=== PATIENT | male | born 1935 | race Caucasian/White ===

== ENCOUNTER 2017-08-20 21:21 | Inpatient (IN) | payer MEDICARE, SELFPAY ==
[2017-08-20 21:24] VITALS: BP 108/55; PULSE 70; RESP 20; TEMP 37.1; O2SAT 98; BMI 25.8
[2017-08-20 22:01] LABS: Bedside Glucose 183 mg/dL (70-110)
[2017-08-20 22:05] VITALS: PULSE 70; O2SAT 99
[2017-08-20] MEDS: APIXABAN 5 MG TABLET PO (22:13)
[2017-08-20] MEDS: Atorvastatin Calcium 40 MG Tablet PO (22:13)
[2017-08-20] MEDS: Venlafaxine HCl 75 MG Tablet PO (22:13)
[2017-08-20] MEDS: Gabapentin 100 MG Capsule PO (22:14)
[2017-08-20] MEDS: MELATONIN 3 MG TABLET PO (22:14)
--- NOTE | 2017-08-20 22:16 | NURSING ---
Code status discussed with pt at this time. Wishes to be DNRCC. Wishes to have sign papers.
[2017-08-21 06:56] LABS: Bedside Glucose 151 mg/dL (70-110)
[2017-08-21 07:16] LABS: Absolute Lymphocyte Count 0.75 X10^3/ul (0.83-4.51); Absolute Neutrophil Count 3.3 X10^3/uL (2.0-7.7); Basophil# 0.01 X10^3/uL; Basophil% 0.2 % (0-1); Eosinophil# 0.03 X10^3/uL; Eosinophils% 0.6 % (0-5); Hematocrit 33.1 % (40-54); Hemoglobin 10.1 g/dl (13.0-16.5); Lymphocyte # 0.75 X10^3/ul (4.0); Lymphocyte % 15.2 % (19-41); Mean Corp Hgb Conc 30.5 g/gl (32-36); Mean Corpuscular Volume 95.1 fL (80-94); Mean Platelet Vol. 10.5 fl (6.2-12.0); Monocyte# 0.86 X10^3/uL; Monocyte% 17.4 % (0-10); Neutrophil # 3.26 X10^3/uL (2.7-7.7); Neutrophil % 66.2 % (47-70); Platelet Count 88 K/mm3 (150-450); RBC Distribution Width CV 15.9 % (11.6-14.6); RBC Distribution Width SD 53.5 fl (35.1-43.9); Red Blood Count 3.48 M/mm3 (4.6-6.2); White Blood Count 4.9 K/mm3 (4.4-11.0)
[2017-08-21 07:23] LABS: POSITIVE COUNT NO; POSITIVE DIFFERENTIAL NO; POSITIVE MORPHOLOGY NO
[2017-08-21 07:24] LABS: Anion Gap 7 (5-15); BUN 37 mg/dL (7-18); BUN/Creat Ratio 21.5 RATIO (10-20); Calcium,Total 8.7 mg/dL (8.5-10.1); Chloride 104 mmol/L (98-107); Creatinine, Serum 1.72 mg/dL (0.70-1.30); EST Glomerular Filtration Rate 41 mL/min (>60); Est Glom Filt Rate - Afr Amer 49 mL/min (>60); Estimated Creatinine Clearance 34.19 ml/min; Glucose 139 mg/dL (74-106); Potassium 3.9 mmol/L (3.5-5.1); Sodium Level 140 mmol/L (136-145)
[2017-08-21] MEDS: Gabapentin 100 MG Capsule PO ×3 (08:16→17:46)
[2017-08-21] MEDS: Ferrous Sulfate 325 MG Tablet PO (08:16)
[2017-08-21] MEDS: Docusate Sodium 100 MG Capsule PO ×2 (08:16→17:46)
[2017-08-21] MEDS: Clopidogrel Bisulfate 75 MG Tablet PO (08:16)
[2017-08-21] MEDS: Pantoprazole Sodium 40 MG Tablet PO (08:16)
[2017-08-21] MEDS: APIXABAN 5 MG TABLET PO ×2 (08:16→17:46)
[2017-08-21] MEDS: Venlafaxine HCl 75 MG Tablet PO ×3 (08:16→17:46)
[2017-08-21] MEDS: Menthol/Lanolin/Calamine/Znox 113 GM Tube 1 APPLIC TOPICAL (08:23)
--- NOTE | 2017-08-21 10:04 | NURSING ---
Pt has c/o nasal congestion, requesting mucinex. NO for mucinex 600mg PO BID. Patient aware.
--- NOTE | 2017-08-21 10:08 | NURSING ---
Code status discussed with Patient and , Ayah. Patient wishes to be a DNRCC at this time.
[2017-08-21] MEDS: Tuberculin,Purif.prot.deriv. 50 TU/ML Vial 5 ML ID (11:20)
[2017-08-21 15:39] VITALS: BP 105/53; PULSE 70; RESP 18; TEMP 36.9; O2SAT 96
[2017-08-21] MEDS: guaiFENesin 600 MG Tablet PO (17:46)
[2017-08-21] MEDS: Tamsulosin HCl 0.4 MG Capsule PO (17:46)
--- NOTE | 2017-08-21 19:38 | PCM.HP.STD ---
Problem List (1) Fall Status: Acute (2) Closed head injury Status: Acute (3) Coronary artery disease Status: Chronic (4) Stroke Status: Chronic (5) Atrial fibrillation Status: Chronic (6) Diabetes mellitus Status: Chronic (7) BPH (benign prostatic hyperplasia) Status: Chronic (8) Severe aortic stenosis Status: Chronic (9) Cardiomyopathy Status: Chronic (10) Dysphagia Status: Chronic (11) Carotid artery stenosis Status: Chronic (12) Right hemiparesis Status: Chronic (13) Depression Status: Chronic (14) Hyperlipidemia Status: Chronic (15) Bladder cancer Status: Chronic Qualifiers: History of Present Illness Date of Admission: 08/20/17 Chief Complaint: Here for rehabilitation, strengthening, prior to discharge home with spouse. The patient is a 82 year old Male with below past medical history fell from standing height, hit his head, he is on Plavix, and Eliquis. Patient was admitted to [facility] for observation. Due to his debility, it was recommended he be discharged to short term inpatient rehabilitation. 08/20/2017 Admit to TCU with debility, here for rehabilitation, strengthening, prior to discharge home with spouse. Past Medical History Past Medical History (Chronic Problems): Chronic Problems (Last Updated 03/10/17 @ 13:18 by DORA Anders) Coronary artery disease (Chronic) Stroke (Chronic) Atrial fibrillation (Chronic) Diabetes mellitus (Chronic) BPH (benign prostatic hyperplasia) (Chronic) Dyspnea on exertion (Chronic) Pulmonary hypertension (Chronic) Nonrheumatic mitral valve insufficiency (Chronic) Severe aortic stenosis (Chronic) Cardiomyopathy (Chronic) Dysphagia (Chronic) Carotid artery stenosis (Chronic) Right hemiparesis (Chronic) Depression (Chronic) Hyperlipidemia (Chronic) Type 2 diabetes mellitus (Chronic) Urinary retention due to benign prostatic hyperplasia (Chronic) Bladder cancer (Chronic) Medical History: Medical History (Last Updated 03/10/17 @ 13:18 by DORA Anders) Pulmonary hypertension (Chronic) I27.20 Nonrheumatic mitral valve insufficiency (Chronic) I34.0 Severe aortic stenosis (Chronic) I35.0 Cardiomyopathy (Chronic) I42.9 Dysphagia (Chronic) R13.10 Carotid artery stenosis (Chronic) I65.29 Right hemiparesis (Chronic) G81.91 Heart failure with reduced ejection fraction (Acute) I50.20 Depression (Chronic) F32.9 Hyperlipidemia (Chronic) E78.5 Atrial fibrillation and flutter (Acute) I48.91, I48.92 Type 2 diabetes mellitus (Chronic) E11.9 Acute embolic stroke (Acute) I63.9 Urinary retention due to benign prostatic hyperplasia (Chronic) N40.1, R33.8 Bladder cancer (Chronic) C67.9 Ventricular tachycardia I47.2 Allergies morphine Allergy (Verified 03/17/17 06:51) Rash Home Medications: Ambulatory Orders Medication Instructions Recorded Metformin HCl 500 mg PO BIDCM 10/21/16 Tamsulosin HCl [Flomax] 0.4 mg PO DAILY 10/21/16 Venlafaxine XR [Effexor Xr] 75 mg PO TID 10/21/16 Acetaminophen [Tylenol] 1,000 mg PO Q8H PRN PRN tab 12/12/16 Apixaban [Eliquis] 5 mg PO BID 08/20/17 Surgical History: total knee arthroplasty - Bilateral., - - 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 Psychiatric History: Depression Lives: Spouse/ Significant Other Smoking Status: Never smoker Tobacco Use: Non-smoker Alcohol: None Drugs: None - *Family History Maternal History Items: No pertinent history Review of Systems Constitutional: Reports: Weakness. Denies: Chills, Fever, Weight Change HEENT: Denies: Head Aches, Sinus Congestion, Sinus Drainage Cardiovascular: Denies: Chest Pain, Palpitations Respiratory: Denies: Cough, Shortness of breath at rest, Sputum production Gastrointestinal: Denies: Abdominal Pain, Nausea, Vomiting Genitourinary: Denies: Dysuria Musculoskeletal: Denies: Joint Pain, Joint Tenderness Skin: Denies: Rash, Wounds Neurological: Denies: Numbness, Tingling, Focal weakness Psychiatric: Denies: Anxiety, Depression, Homicidal Ideations, Suicidal Ideations Hematologic/ Lymphatic: Denies: Easy Bruising, Easy Bleeding VTE Information - Inpt Only VTE Present on Admission: No VTE Mechan Device Prophylaxis: Knee High KEIRA Hose VTE Pharm Prophylaxis ordered?: No Reason prophylaxis not ordered:: Treatment Not Indicated Patient Problems: Active and Suspected Problems (Last Updated 03/10/17 @ 13:18 by Kunal Newman NP-C) Fall (Acute) Closed head injury (Acute) - Physical Exam General: Alert, Oriented x3, Cooperative HEENT: Atraumatic, PERRLA, EOMI, Normocephalic Neck: Supple, No JVD, Negative Carotid Bruits Lungs: Clear to auscultation, Normal air movement Cardiovascular: Regular rate, No murmurs Abdomen: Bowel Sounds Present, Soft, Non Tender Extremities: Capillary Refill Less than 3 Seconds, Edema - Trace. Skin: No rashes, No breakdown Musculoskeletal: No Tenderness to Palpation of Joints or Extremities Neurological: Cranial nerves II-XII grossly intact Psych/Mental Status: Normal Affect, Appropriate Vital Signs Temp Pulse Resp BP Pulse Ox 98.4 F 70 18 105/53 L 96 08/21/17 15:39 08/21/17 15:39 08/21/17 15:39 08/21/17 15:39 08/21/17 15:39 Oxygen Delivery Method Room Air Weight: 81.647 kg Body Mass Index (BMI) 25.8 Intake and Output for Last 24 Hours 08/19/17 08/20/17 08/21/17 23:59 23:59 23:59 Intake Total 120 / 120 444 / 444 Balance 120 / 120 444 / 444 Laboratory Tests Past 24 Hrs 08/21/17 08/21/17 06:28 06:28 WBC 4.9 RBC 3.48 L Hgb 10.1 L Hct 33.1 L MCV 95.1 H MCH 29.0 MCHC 30.5 L RDW 15.9 H RDW Differential 53.5 H Plt Count 88 L MPV 10.5 Immature Gran % (Auto) 0.400 Neut % (Auto) 66.2 Lymph % (Auto) 15.2 L [place] % (Auto) 17.4 H Eos % (Auto) 0.6 Baso % (Auto) 0.2 Absolute Neuts (auto) 3.3 Absolute Lymphs (auto) 0.75 L Total Counted Not Reportable Sodium 140 Potassium 3.9 Chloride 104 Carbon Dioxide 29.0 Anion Gap 7 BUN 37 H Creatinine 1.72 H Estim Creat Clear Calc 34.19 Est GFR (MDRD) Af Amer 49 L Est GFR (MDRD) Non-Af 41 L BUN/Creatinine Ratio 21.5 H Glucose 139 H Calcium 8.7 POC Glucose 08/21/17 08/20/17 06:29 21:58 POC Glucose 151 H 183 H Assessment/Plan All Active Problems (Last Updated 03/10/17 @ 13:18 by Kunal Newman NP-C) Fall (Acute) Closed head injury (Acute) Heart failure with reduced ejection fraction (Acute) Atrial fibrillation and flutter (Acute) Acute embolic stroke (Acute) 82 year old male with below past medical history hospitalized for fall, closed head injury, admitted to TCU with debility, here for rehabilitation, strengthening, prior to discharge home with spouse. Debility - PT/OT. Pain - Tylenol 1000MG Q8H PRN mild pain. Bowel - Miralax 17GM daily, Senna/colace 1 tablet twice daily, Dulcolax 10MG PO daily PRN. Pneumonia vaccination - Administer Prevnar 13 and/or Pneumovax 23 as necessar.y DVT prophylaxis - Not necessary, already on Eliquis. Atrial Fibrillation - Eliquis 5MG twice daily. Hyperlipidemia - Atorvastatin 40MG QHS. Coronary Artery Disease - Plavix 75MG twice daily. Skin irritation - Eucerin twice daily bilateral feet, Calmoseptine twice daily bilateral buttocks. Vitamin D deficiency - D2 50,000 units every 7 days. Iron deficiency anemia - Ferrex 150MG daily. Neuropathic pain - Gabapentin 100MG TID. Congestion - Mucinex 600MG twice daily. Insomnia - Melatonin 3MG QHS. Diabetes Mellitus II - Metformin 500MG twice daily. GERD - Pantoprazole 40MG daily. BPH - Tamsulosin 0.4MG daily. Depression - Venlafaxine 75MG TID.
[2017-08-21] MEDS: Acetaminophen 500 MG Tablet 1000 MG PO (19:40)
[2017-08-21] MEDS: Atorvastatin Calcium 40 MG Tablet PO (19:41)
[2017-08-21] MEDS: MELATONIN 3 MG TABLET PO (19:42)
--- NOTE | 2017-08-21 19:55 | HP.PCM_ITS ---
Problem List (1) Fall Status: Acute (2) Closed head injury Status: Acute (3) Coronary artery disease Status: Chronic (4) Stroke Status: Chronic (5) Atrial fibrillation Status: Chronic (6) Diabetes mellitus Status: Chronic (7) BPH (benign prostatic hyperplasia) Status: Chronic (8) Severe aortic stenosis Status: Chronic (9) Cardiomyopathy Status: Chronic (10) Dysphagia Status: Chronic (11) Carotid artery stenosis Status: Chronic (12) Right hemiparesis Status: Chronic (13) Depression Status: Chronic (14) Hyperlipidemia Status: Chronic (15) Bladder cancer Status: Chronic Qualifiers: History of Present Illness Date of Admission: 08/20/17 Chief Complaint: Here for rehabilitation, strengthening, prior to discharge home with spouse. The patient is a 82 year old Male with below past medical history fell from standing height, hit his head, he is on Plavix, and Eliquis. Patient was admitted to [facility] for observation. Due to his debility, it was recommended he be discharged to short term inpatient rehabilitation. 08/20/2017 Admit to TCU with debility, here for rehabilitation, strengthening, prior to discharge home with spouse. Past Medical History Past Medical History (Chronic Problems): Chronic Problems (Last Updated 03/10/17 @ 13:18 by DORA Anders) Coronary artery disease (Chronic) Stroke (Chronic) Atrial fibrillation (Chronic) Diabetes mellitus (Chronic) BPH (benign prostatic hyperplasia) (Chronic) Dyspnea on exertion (Chronic) Pulmonary hypertension (Chronic) Nonrheumatic mitral valve insufficiency (Chronic) Severe aortic stenosis (Chronic) Cardiomyopathy (Chronic) Dysphagia (Chronic) Carotid artery stenosis (Chronic) Right hemiparesis (Chronic) Depression (Chronic) Hyperlipidemia (Chronic) Type 2 diabetes mellitus (Chronic) Urinary retention due to benign prostatic hyperplasia (Chronic) Bladder cancer (Chronic) Medical History: Medical History (Last Updated 03/10/17 @ 13:18 by DORA Anders) Pulmonary hypertension (Chronic) I27.20 Nonrheumatic mitral valve insufficiency (Chronic) I34.0 Severe aortic stenosis (Chronic) I35.0 Cardiomyopathy (Chronic) I42.9 Dysphagia (Chronic) R13.10 Carotid artery stenosis (Chronic) I65.29 Right hemiparesis (Chronic) G81.91 Heart failure with reduced ejection fraction (Acute) I50.20 Depression (Chronic) F32.9 Hyperlipidemia (Chronic) E78.5 Atrial fibrillation and flutter (Acute) I48.91, I48.92 Type 2 diabetes mellitus (Chronic) E11.9 Acute embolic stroke (Acute) I63.9 Urinary retention due to benign prostatic hyperplasia (Chronic) N40.1, R33.8 Bladder cancer (Chronic) C67.9 Ventricular tachycardia I47.2 Allergies morphine Allergy (Verified 03/17/17 06:51) Rash Home Medications: Ambulatory Orders Medication Instructions Recorded Metformin HCl 500 mg PO BIDCM 10/21/16 Tamsulosin HCl [Flomax] 0.4 mg PO DAILY 10/21/16 Venlafaxine XR [Effexor Xr] 75 mg PO TID 10/21/16 Acetaminophen [Tylenol] 1,000 mg PO Q8H PRN PRN tab 12/12/16 Apixaban [Eliquis] 5 mg PO BID 08/20/17 Surgical History: total knee arthroplasty - Bilateral., - - 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 Psychiatric History: Depression Lives: Spouse/ Significant Other Smoking Status: Never smoker Tobacco Use: Non-smoker Alcohol: None Drugs: None - *Family History Maternal History Items: No pertinent history Review of Systems Constitutional: Reports: Weakness. Denies: Chills, Fever, Weight Change HEENT: Denies: Head Aches, Sinus Congestion, Sinus Drainage Cardiovascular: Denies: Chest Pain, Palpitations Respiratory: Denies: Cough, Shortness of breath at rest, Sputum production Gastrointestinal: Denies: Abdominal Pain, Nausea, Vomiting Genitourinary: Denies: Dysuria Musculoskeletal: Denies: Joint Pain, Joint Tenderness Skin: Denies: Rash, Wounds Neurological: Denies: Numbness, Tingling, Focal weakness Psychiatric: Denies: Anxiety, Depression, Homicidal Ideations, Suicidal Ideations Hematologic/ Lymphatic: Denies: Easy Bruising, Easy Bleeding VTE Information - Inpt Only VTE Present on Admission: No VTE Mechan Device Prophylaxis: Knee High KEIRA Hose VTE Pharm Prophylaxis ordered?: No Reason prophylaxis not ordered:: Treatment Not Indicated Patient Problems: Active and Suspected Problems (Last Updated 03/10/17 @ 13:18 by Kunal Newman NP- C) Fall (Acute) Closed head injury (Acute) - Physical Exam General: Alert, Oriented x3, Cooperative HEENT: Atraumatic, PERRLA, EOMI, Normocephalic Neck: Supple, No JVD, Negative Carotid Bruits Lungs: Clear to auscultation, Normal air movement Cardiovascular: Regular rate, No murmurs Abdomen: Bowel Sounds Present, Soft, Non Tender Extremities: Capillary Refill Less than 3 Seconds, Edema - Trace. Skin: No rashes, No breakdown Musculoskeletal: No Tenderness to Palpation of Joints or Extremities Neurological: Cranial nerves II-XII grossly intact Psych/Mental Status: Normal Affect, Appropriate Vital Signs Temp Pulse Resp BP Pulse Ox 98.4 F 70 18 105/53 L 96 08/21/17 15:39 08/21/17 15:39 08/21/17 15:39 08/21/17 15:39 08/21/17 15:39 Oxygen Delivery Method Room Air Weight: 81.647 kg Body Mass Index (BMI) 25.8 Intake and Output for Last 24 Hours 08/19/17 08/20/17 08/21/17 23:59 23:59 23:59 Intake Total 120 / 120 444 / 444 Balance 120 / 120 444 / 444 Laboratory Tests Past 24 Hrs 08/21/17 08/21/17 06:28 06:28 WBC 4.9 RBC 3.48 L Hgb 10.1 L Hct 33.1 L MCV 95.1 H MCH 29.0 MCHC 30.5 L RDW 15.9 H RDW Differential 53.5 H Plt Count 88 L MPV 10.5 Immature Gran % (Auto) 0.400 Neut % (Auto) 66.2 Lymph % (Auto) 15.2 L [place] % (Auto) 17.4 H Eos % (Auto) 0.6 Baso % (Auto) 0.2 Absolute Neuts (auto) 3.3 Absolute Lymphs (auto) 0.75 L Total Counted Not Reportable Sodium 140 Potassium 3.9 Chloride 104 Carbon Dioxide 29.0 Anion Gap 7 BUN 37 H Creatinine 1.72 H Estim Creat Clear Calc 34.19 Est GFR (MDRD) Af Amer 49 L Est GFR (MDRD) Non-Af 41 L BUN/Creatinine Ratio 21.5 H Glucose 139 H Calcium 8.7 POC Glucose 08/21/17 08/20/17 06:29 21:58 POC Glucose 151 H 183 H Assessment/Plan All Active Problems (Last Updated 03/10/17 @ 13:18 by Kunal H Roof, WELDER APPRENTICE G[employer]-C) Fall (Acute) Closed head injury (Acute) Heart failure with reduced ejection fraction (Acute) Atrial fibrillation and flutter (Acute) Acute embolic stroke (Acute) 82 year old male with below past medical history hospitalized for fall, closed head injury, admitted to TCU with debility, here for rehabilitation, strengthening, prior to discharge home with spouse. * Debility - PT/OT. * Pain - Tylenol 1000MG Q8H PRN mild pain. * Bowel - Miralax 17GM daily, Senna/colace 1 tablet twice daily, Dulcolax 10MG PO daily PRN. * Pneumonia vaccination - Administer Prevnar 13 and/or Pneumovax 23 as necessar.y * DVT prophylaxis - Not necessary, already on Eliquis. * Atrial Fibrillation - Eliquis 5MG twice daily. * Hyperlipidemia - Atorvastatin 40MG QHS. * Coronary Artery Disease - Plavix 75MG twice daily. * Skin irritation - Eucerin twice daily bilateral feet, Calmoseptine twice daily bilateral buttocks. * Vitamin D deficiency - D2 50,000 units every 7 days. * Iron deficiency anemia - Ferrex 150MG daily. * Neuropathic pain - Gabapentin 100MG TID. * Congestion - Mucinex 600MG twice daily. * Insomnia - Melatonin 3MG QHS. * Diabetes Mellitus II - Metformin 500MG twice daily. * GERD - Pantoprazole 40MG daily. * BPH - Tamsulosin 0.4MG daily. * Depression - Venlafaxine 75MG TID.
[2017-08-21 20:56] VITALS: PULSE 68; RESP 18; O2SAT 95
[2017-08-22] MEDS: guaiFENesin 600 MG Tablet PO ×2 (05:33→17:53)
[2017-08-22] MEDS: Polyethylene Glycol 3350 17 GM PACKET PO (05:33)
[2017-08-22 06:50] LABS: Bedside Glucose 97 mg/dL (70-110)
[2017-08-22] MEDS: Gabapentin 100 MG Capsule PO ×3 (07:45→17:52)
[2017-08-22] MEDS: Venlafaxine HCl 75 MG Tablet PO ×3 (07:45→17:52)
[2017-08-22] MEDS: APIXABAN 5 MG TABLET PO ×2 (07:45→17:52)
[2017-08-22] MEDS: Iron Polysaccharide Complex 150 MG CAPSULE PO (07:45)
[2017-08-22] MEDS: Clopidogrel Bisulfate 75 MG Tablet PO (07:45)
[2017-08-22] MEDS: Pantoprazole Sodium 40 MG Tablet PO (07:45)
[2017-08-22] MEDS: Menthol/Lanolin/Calamine/Znox 113 GM Tube 1 APPLIC TOPICAL ×2 (07:49→21:19)
[2017-08-22 15:08] VITALS: BP 119/69; PULSE 73; RESP 16; TEMP 36.5; O2SAT 99
[2017-08-22] MEDS: Tamsulosin HCl 0.4 MG Capsule PO (17:53)
[2017-08-22] MEDS: Senna/Docusate Sodium 1 Tablet PO (17:54)
[2017-08-22 19:37] VITALS: PULSE 88; RESP 18; O2SAT 95
[2017-08-22] MEDS: Atorvastatin Calcium 40 MG Tablet PO (21:19)
[2017-08-22] MEDS: MELATONIN 3 MG TABLET PO (21:20)
[2017-08-23] MEDS: guaiFENesin 600 MG Tablet PO ×2 (05:36→17:21)
[2017-08-23 06:31] LABS: Bedside Glucose 97 mg/dL (70-110)
[2017-08-23] MEDS: Venlafaxine HCl 75 MG Tablet PO ×3 (07:50→17:21)
[2017-08-23] MEDS: Menthol/Lanolin/Calamine/Znox 113 GM Tube 1 APPLIC TOPICAL ×2 (07:50→19:53)
[2017-08-23] MEDS: Gabapentin 100 MG Capsule PO ×3 (07:50→17:21)
[2017-08-23] MEDS: APIXABAN 5 MG TABLET PO ×2 (07:51→17:21)
[2017-08-23] MEDS: Iron Polysaccharide Complex 150 MG CAPSULE PO (07:53)
[2017-08-23] MEDS: Pantoprazole Sodium 40 MG Tablet PO (07:54)
[2017-08-23] MEDS: Clopidogrel Bisulfate 75 MG Tablet PO (07:54)
--- NOTE | 2017-08-23 11:04 | NURSING ---
Addendum entered by Tarah Cortes 08/23/17 18:04: DR PEREZ ORDERED ULTRAM PRN SINCE PT REFUSING TYLENOL. Original Note: DR PEREZ AWARE OF PT CONTINUES TO C/O OF CONSTANT RT KNEE PAIN, TIGHT EDEMA & STIFFNESS, REFUSING TYLENOL. DR PEREZ AWARE, NEW ORDER FOR CT RT KNEE. PT UPDATED, AWAITING PREAUTH FOR INSURANCE APPROVAL.
--- NOTE | 2017-08-23 11:05 | NURSING ---
pt c/o right knee pain at this time. PRN tylenol offered and pt declined. Will re-approach and continue to monitor.
[2017-08-23 15:18] VITALS: BP 103/46; PULSE 70; RESP 16; TEMP 36.7; O2SAT 93
[2017-08-23] MEDS: Senna/Docusate Sodium 1 Tablet PO (17:21)
[2017-08-23] MEDS: Tamsulosin HCl 0.4 MG Capsule PO (17:21)
[2017-08-23] MEDS: Atorvastatin Calcium 40 MG Tablet PO (19:54)
[2017-08-23] MEDS: MELATONIN 3 MG TABLET PO (19:54)
[2017-08-23 20:00] VITALS: PULSE 76; RESP 16; O2SAT 96
[2017-08-24 06:51] LABS: Bedside Glucose 130 mg/dL (70-110)
[2017-08-24] MEDS: Venlafaxine HCl 75 MG Tablet PO ×3 (08:08→17:30)
[2017-08-24] MEDS: Bisacodyl 5 MG Tablet 10 MG PO (08:08)
[2017-08-24] MEDS: Gabapentin 100 MG Capsule PO ×3 (08:08→17:30)
[2017-08-24] MEDS: APIXABAN 5 MG TABLET PO ×2 (08:09→17:30)
[2017-08-24] MEDS: Iron Polysaccharide Complex 150 MG CAPSULE PO (08:09)
[2017-08-24] MEDS: Polyethylene Glycol 3350 17 GM PACKET PO (08:10)
[2017-08-24] MEDS: Clopidogrel Bisulfate 75 MG Tablet PO (08:11)
[2017-08-24] MEDS: Pantoprazole Sodium 40 MG Tablet PO (08:11)
[2017-08-24] MEDS: guaiFENesin 600 MG Tablet PO ×2 (08:11→17:30)
[2017-08-24] MEDS: Senna/Docusate Sodium 1 Tablet PO ×2 (08:12→17:30)
[2017-08-24] MEDS: Menthol/Lanolin/Calamine/Znox 113 GM Tube 1 APPLIC TOPICAL ×2 (08:18→19:46)
[2017-08-24 10:42] VITALS: PULSE 70; RESP 18; O2SAT 98
--- NOTE | 2017-08-24 10:59 | NURSING ---
PT STILL COMPLAINING ABOUT RIGHT KNEE PAIN. ICE PACK APPLIED. BOTH HANDS SWOLLEN X1. LOWER RIGHT ANKLE AND FOOT SWOLLEN X2 NON PITTING. REPORTED TO YAYA GUTIERREZ
[2017-08-24] MEDS: traMADol 50 MG Tablet PO (11:41)
[2017-08-24] MEDS: Acetaminophen 500 MG Tablet 1000 MG PO (11:43)
[2017-08-24 15:26] VITALS: BP 118/58; PULSE 70; RESP 18; TEMP 36.1; O2SAT 98
[2017-08-24] MEDS: Tamsulosin HCl 0.4 MG Capsule PO (17:30)
--- NOTE | 2017-08-24 18:04 | NURSING ---
INCREASED CRYSTALIZER OPERATOR EDEMA TO HANDS AND RT FOOT TO KNEE, DR PEREZ NOTIFIED, NEW ORDER LASIX X1 NOW AND DAILY.
[2017-08-24] MEDS: Sodium Chloride 0.65% 1 SPRAY SPRAY.BTL NASAL (18:42)
[2017-08-24] MEDS: Furosemide 20 MG Tablet PO (18:42)
[2017-08-24] MEDS: Atorvastatin Calcium 40 MG Tablet PO (19:46)
[2017-08-24] MEDS: MELATONIN 3 MG TABLET PO (19:46)
[2017-08-25 06:50] LABS: Bedside Glucose 97 mg/dL (70-110)
--- NOTE | 2017-08-25 07:18 | NURSING ---
PATIENT WAS ORDERED AN SSE. THIS NURSE ATTEMPTED TO GIVE ENEMA. WHEN THIS NURSE EXPLAINED THAT THE DR ORDERED AN ENEMA FOR HIM THE PATIENT SAID THE HECK HE DID! THIS NURSE EXPLAINED IT HAD BEEN SEVERAL DAYS SINCE HIS LAST BM. PATIENT SAID I DON'T CARE IF IT'S BEEN SEVERAL WEEKS, I'M NOT TAKING AN ENEMA! IT WAS NOTED THAT PATIENT TOOK DULCOLAX TABS YESTERDAY AM. AND LAST BM NOTED WAS 08/22/17. WILL CONT TO MONITOR. FELISA DANG WAS IN ROOM WITH THIS NURSE ALSO. SAME REPORTED TO CARINA, RN AND ERICA SPINDLE [facility]VER NURSES AND DAY NURSE YAYA SAWYER.
[2017-08-25] MEDS: Pantoprazole Sodium 40 MG Tablet PO (08:10)
[2017-08-25] MEDS: guaiFENesin 600 MG Tablet PO ×2 (08:10→18:03)
[2017-08-25] MEDS: Clopidogrel Bisulfate 75 MG Tablet PO (08:10)
[2017-08-25] MEDS: Iron Polysaccharide Complex 150 MG CAPSULE PO (08:11)
[2017-08-25] MEDS: Menthol/Lanolin/Calamine/Znox 113 GM Tube 1 APPLIC TOPICAL ×2 (08:11→20:19)
[2017-08-25] MEDS: Gabapentin 100 MG Capsule PO ×3 (08:11→18:04)
[2017-08-25] MEDS: APIXABAN 5 MG TABLET PO ×2 (08:11→18:04)
[2017-08-25] MEDS: Venlafaxine HCl 75 MG Tablet PO ×3 (08:11→18:03)
[2017-08-25] MEDS: Polyethylene Glycol 3350 17 GM PACKET PO (08:12)
--- NOTE | 2017-08-25 09:02 | NURSING ---
Dr. Benson aware of pt refusing SSE this morning, N.O. for 1L of nulytely, pt updated.
--- NOTE | 2017-08-25 09:06 | CASEMGMT ---
Plan of care meeting held. Resident present as well as resident spouse. No discharge date set at this time. Resident plans to continue with further care and treatment on the Transitional Care Unit at this time. Resident plans to discharge home with spouse at time of discharge. Resident with an insurance update due on 08/27/17, resident aware that continued stay approval is not guaranteed. Support given. Will continue to follow. Frannie BETHEA, PRODUCT STRATEGY DIRECTOR
[2017-08-25] MEDS: Electrolyte Solution/Peg's 4000 ML 1000 ML PO (11:10)
[2017-08-25] MEDS: Senna/Docusate Sodium 1 Tablet PO ×2 (11:11→18:03)
--- NOTE | 2017-08-25 11:58 | PCM.PN.RX ---
<JasonliannegalileoKyle D - Last Filed: 08/25/17 11:58> Progress Note - Pharmacy Subjective: TCU Admission Objective: Allergies morphine Allergy (Verified 03/17/17 06:51) Rash Current Medications Generic Name Dose Route Start Last Admin Trade Name Freq PRN Reason Stop Dose Admin Acetaminophen 1,000 mg 08/20/17 21:30 08/24/17 11:43 Tylenol PO 1,000 mg Q8H PRN PRN Administration MILD PAIN (1-3/10) Apixaban 5 mg 08/20/17 22:00 08/25/17 08:11 Eliquis PO 5 mg BIDCM [facility] Administration Atorvastatin Calcium 40 mg 08/20/17 22:00 08/24/17 19:46 Lipitor PO 40 mg QHS [facility] Administration Bisacodyl 10 mg 08/21/17 20:07 08/24/17 08:08 Dulcolax PO 10 mg DAILY PRN Administration Constipation Calamine/Phenol 1 applic 08/21/17 08:00 08/25/17 08:11 Calmoseptine Ointment TOPICAL 1 applicatio 0800,2200 [facility] Administration Protocol Clopidogrel Bisulfate 75 mg 08/21/17 08:00 08/25/17 08:10 Plavix PO 75 mg DAILY@0800 [facility] Administration Emollient Ointment 1 applic 08/21/17 08:00 08/25/17 08:11 Eucerin Intensive Repair TOPICAL 1 applicatio 0800,2200 [facility] Administration Protocol Ergocalciferol 50,000 unit 08/21/17 08:00 08/21/17 08:15 Vitamin D PO 50,000 unit Q7D [facility] Administration Furosemide 20 mg 08/25/17 08:00 Lasix PO DAILY@0800 [facility] Gabapentin 100 mg 08/20/17 22:00 08/25/17 08:11 Neurontin PO 100 mg TIDCM [facility] Administration Guaifenesin 600 mg 08/24/17 08:00 08/25/17 08:10 Mucinex PO 600 mg BID@0800,1800 [facility] Administration Melatonin 3 mg 08/20/17 22:00 08/24/17 19:46 Melatonin PO 3 mg QHS [facility] Administration Metformin HCl 500 mg 08/21/17 08:00 08/25/17 08:10 Glucophage PO 500 mg BIDCM [facility] Administration Nutritional Formula (Lactose Free) 120 ml 08/25/17 12:00 08/25/17 11:46 Ensure Enlive PO Not Given 4X/DAY [facility] Pantoprazole Sodium 40 mg 08/21/17 08:00 08/25/17 08:10 Protonix PO 40 mg DAILY@0800 [facility] Administration Polyethylene Glycol 17 gm 08/24/17 08:00 08/25/17 08:12 Miralax PO 17 gm DAILY@0800 [facility] Administration Polysaccharide Iron Complex 150 mg 08/22/17 08:00 08/25/17 08:11 Ferrex 150 PO 150 mg DAILYCM [facility] Administration Senna/Docusate Sodium 1 tablet 08/24/17 08:00 08/25/17 11:11 Senokot-S, [place]-Colace PO 1 tablet BID@0800,1800 [facility] Administration Sodium Chloride 1 spray 08/24/17 17:48 08/24/17 18:42 [place] Nasal [facility] NASAL 1 spray BID PRN PRN Administration NASAL DRYNESS Tamsulosin HCl 0.4 mg 08/21/17 18:45 08/24/17 17:30 Flomax PO 0.4 mg DAILY@1845 [facility] Administration Tramadol HCl 50 mg 08/23/17 18:03 08/24/17 11:41 Ultram PO 50 mg Q6H PRN PRN Administration MODERATE PAIN (4-5/10) Tuberculin PPD 5 tu 08/28/17 10:00 Tubersol, Aplisol, Ppd ID 08/28/17 10:01 X1 ONE Venlafaxine HCl 75 mg 08/20/17 22:00 08/25/17 08:11 Effexor PO 75 mg TIDCM [facility] Administration Problem List (Last Updated 03/10/17 @ 13:18 by MERARY AndersC) Fall (Acute) Closed head injury (Acute) Coronary artery disease (Chronic) Stroke (Chronic) Atrial fibrillation (Chronic) Diabetes mellitus (Chronic) BPH (benign prostatic hyperplasia) (Chronic) Vital Signs Temp Pulse Resp BP Pulse Ox 97.0 F L 70 18 118/58 L 98 08/24/17 15:26 08/24/17 15:26 08/24/17 15:26 08/24/17 15:26 08/24/17 15:26 Oxygen Delivery Method Room Air Weight: 81.647 kg Body Mass Index (BMI) 25.8 Sodium 140 mmol/L (136-145) 08/21/17 06:28 Potassium 3.9 mmol/L (3.5-5.1) 08/21/17 06:28 Chloride 104 mmol/L (98-107) 08/21/17 06:28 Carbon Dioxide 29.0 mmol/L (21.0-32.0) 08/21/17 06:28 Anion Gap 7 (5-15) 08/21/17 06:28 BUN 37 mg/dL (7-18) H 08/21/17 06:28 Creatinine 1.72 mg/dL (0.70-1.30) H 08/21/17 06:28 Est GFR (MDRD) Af Amer 49 mL/min (>60) L 08/21/17 06:28 Est GFR (MDRD) Non-Af 41 mL/min (>60) L 08/21/17 06:28 BUN/Creatinine Ratio 21.5 RATIO (10-20) H 08/21/17 06:28 Glucose 139 mg/dL (74-106) H 08/21/17 06:28 Assessment/Plan: 1) Pain APAP for mild pain, tramadol for moderate pain, gabapentin scheduled. Continue to monitor prn medication use, daily pain scores. 2) AFib/CAD Apixaban, atorvastatin, clopidogrel. Continue to monitor s/s bleeding, lipids, s/s chest pain. 3) DM2 Metformin twice daily. Continue to monitor BGT, renal function. 4) GI Pantoprazole daily. Continue to monitor s/s GI distress. 5) Derm Calmoseptine, emollient. Continue to monitor clinically. 6) BPH Tamsulosin. Continue to monitor for symptoms. 7) Nutrition Ergocalciferol, Ensure, Fe. Continue to monitor clinically. 8) Insomnia Melatonin at HS. Continue to monitor for insomnia. Psychotropic Medications: 9) Depression Venlafaxine 3x daily. Continue to monitor s/s depression. Unnecessary Medications: None Bowel Regimen: 10) Senna/s, PEG, prn bisacodyl. Continue to monitor prn medication use, for constipation/diarrhea. Date of Note:: 08/25/17 - Provider Comments Provider responsibility: Provider responsible to enter orders to implement recommendations <Eliecer Benson Chi - Last Filed: 08/25/17 16:08> Progress Note - Pharmacy Subjective: [] Objective: Allergies morphine Allergy (Verified 03/17/17 06:51) Rash Current Medications Generic Name Dose Route Start Last Admin Trade Name Freq PRN Reason Stop Dose Admin Acetaminophen 1,000 mg 08/20/17 21:30 08/24/17 11:43 Tylenol PO 1,000 mg Q8H PRN PRN Administration MILD PAIN (1-3/10) Apixaban 5 mg 08/20/17 22:00 08/25/17 08:11 Eliquis PO 5 mg BIDCM [facility] Administration Atorvastatin Calcium 40 mg 08/20/17 22:00 08/24/17 19:46 Lipitor PO 40 mg QHS [facility] Administration Bisacodyl 10 mg 08/21/17 20:07 08/24/17 08:08 Dulcolax PO 10 mg DAILY PRN Administration Constipation Calamine/Phenol 1 applic 08/21/17 08:00 08/25/17 08:11 Calmoseptine Ointment TOPICAL 1 applicatio 0800,2200 [facility] Administration Protocol Clopidogrel Bisulfate 75 mg 08/21/17 08:00 08/25/17 08:10 Plavix PO 75 mg DAILY@0800 [facility] Administration Emollient Ointment 1 applic 08/21/17 08:00 08/25/17 08:11 Eucerin Intensive Repair TOPICAL 1 applicatio 0800,2200 [facility] Administration Protocol Ergocalciferol 50,000 unit 08/21/17 08:00 08/21/17 08:15 Vitamin D PO 50,000 unit Q7D [facility] Administration Furosemide 20 mg 08/25/17 08:00 08/25/17 13:24 Lasix PO 20 mg DAILY@0800 [facility] Administration Gabapentin 100 mg 08/20/17 22:00 08/25/17 13:24 Neurontin PO 100 mg TIDCM [facility] Administration Guaifenesin 600 mg 08/24/17 08:00 08/25/17 08:10 Mucinex PO 600 mg BID@0800,1800 [facility] Administration Melatonin 3 mg 08/20/17 22:00 08/24/17 19:46 Melatonin PO 3 mg QHS [facility] Administration Metformin HCl 500 mg 08/21/17 08:00 08/25/17 08:10 Glucophage PO 500 mg BIDCM [facility] Administration Nutritional Formula (Lactose Free) 120 ml 08/25/17 12:00 08/25/17 11:46 Ensure Enlive PO Not Given 4X/DAY [facility] Pantoprazole Sodium 40 mg 08/21/17 08:00 08/25/17 08:10 Protonix PO 40 mg DAILY@0800 [facility] Administration Polyethylene Glycol 17 gm 08/24/17 08:00 08/25/17 08:12 Miralax PO 17 gm DAILY@0800 [facility] Administration Polysaccharide Iron Complex 150 mg 08/22/17 08:00 08/25/17 08:11 Ferrex 150 PO 150 mg DAILYCM [facility] Administration Senna/Docusate Sodium 1 tablet 08/24/17 08:00 08/25/17 11:11 Senokot-S, [place] PO 1 tablet BID@0800,1800 [facility] Administration Sodium Chloride 1 spray 08/24/17 17:48 08/24/17 18:42 [place] Nasal [facility] NASAL 1 spray BID PRN PRN Administration NASAL DRYNESS Tamsulosin HCl 0.4 mg 08/21/17 18:45 08/24/17 17:30 Flomax PO 0.4 mg DAILY@1845 [facility] Administration Tramadol HCl 50 mg 08/23/17 18:03 08/24/17 11:41 Ultram PO 50 mg Q6H PRN PRN Administration MODERATE PAIN (4-5/10) Tuberculin PPD 5 tu 08/28/17 10:00 Tubersol, Aplisol, Ppd ID 08/28/17 10:01 X1 ONE Venlafaxine HCl 75 mg 08/20/17 22:00 08/25/17 13:24 Effexor PO 75 mg TIDCM [facility] Administration Problem List (Last Updated 03/10/17 @ 13:18 by Kunal Newman NP-C) Fall (Acute) Closed head injury (Acute) Coronary artery disease (Chronic) Stroke (Chronic) Atrial fibrillation (Chronic) Diabetes mellitus (Chronic) BPH (benign prostatic hyperplasia) (Chronic) Vital Signs Temp Pulse Resp BP Pulse Ox 98.5 F 70 26 H 103/34 L 100 08/25/17 15:07 08/25/17 15:07 08/25/17 15:07 08/25/17 15:07 08/25/17 15:07 Oxygen Delivery Method Room Air Weight: 83.178 kg Body Mass Index (BMI) 25.8 Sodium 140 mmol/L (136-145) 08/21/17 06:28 Potassium 3.9 mmol/L (3.5-5.1) 08/21/17 06:28 Chloride 104 mmol/L (98-107) 08/21/17 06:28 Carbon Dioxide 29.0 mmol/L (21.0-32.0) 08/21/17 06:28 Anion Gap 7 (5-15) 08/21/17 06:28 BUN 37 mg/dL (7-18) H 08/21/17 06:28 Creatinine 1.72 mg/dL (0.70-1.30) H 08/21/17 06:28 Est GFR (MDRD) Af Amer 49 mL/min (>60) L 08/21/17 06:28 Est GFR (MDRD) Non-Af 41 mL/min (>60) L 08/21/17 06:28 BUN/Creatinine Ratio 21.5 RATIO (10-20) H 08/21/17 06:28 Glucose 139 mg/dL (74-106) H 08/21/17 06:28 Assessment/Plan: Psychotropic Medications: Unnecessary Medications: Bowel Regimen: - Provider Comments Provider responsibility: Provider responsible to enter orders to implement recommendations Provider Comments to Recommendations by Pharmacy: Agree
--- NOTE | 2017-08-25 12:08 | PHA.CONS_ITS ---
<JasonliannegalileoKyle D - Last Filed: 08/25/17 11:58> Progress Note - Pharmacy Subjective: TCU Admission Objective: Allergies morphine Allergy (Verified 03/17/17 06:51) Rash Current Medications Generic Name Dose Route Start Last Admin Trade Name Freq PRN Reason Stop Dose Admin Acetaminophen 1,000 mg 08/20/17 21:30 08/24/17 11:43 Tylenol PO 1,000 mg Q8H PRN PRN Administration MILD PAIN (1-3/10) Apixaban 5 mg 08/20/17 22:00 08/25/17 08:11 Eliquis PO 5 mg BIDCM [facility] Administration Atorvastatin Calcium 40 mg 08/20/17 22:00 08/24/17 19:46 Lipitor PO 40 mg QHS [facility] Administration Bisacodyl 10 mg 08/21/17 20:07 08/24/17 08:08 Dulcolax PO 10 mg DAILY PRN Administration Constipation Calamine/Phenol 1 applic 08/21/17 08:00 08/25/17 08:11 Calmoseptine Ointment TOPICAL 1 applicatio 0800,2200 [facility] Administration Protocol Clopidogrel Bisulfate 75 mg 08/21/17 08:00 08/25/17 08:10 Plavix PO 75 mg DAILY@0800 [facility] Administration Emollient Ointment 1 applic 08/21/17 08:00 08/25/17 08:11 Eucerin Intensive Repair TOPICAL 1 applicatio 0800,2200 [facility] Administration Protocol Ergocalciferol 50,000 unit 08/21/17 08:00 08/21/17 08:15 Vitamin D PO 50,000 unit Q7D [facility] Administration Furosemide 20 mg 08/25/17 08:00 Lasix PO DAILY@0800 [facility] Gabapentin 100 mg 08/20/17 22:00 08/25/17 08:11 Neurontin PO 100 mg TIDCM [facility] Administration Guaifenesin 600 mg 08/24/17 08:00 08/25/17 08:10 Mucinex PO 600 mg BID@0800,1800 [facility] Administration Melatonin 3 mg 08/20/17 22:00 08/24/17 19:46 Melatonin PO 3 mg QHS [facility] Administration Metformin HCl 500 mg 08/21/17 08:00 08/25/17 08:10 Glucophage PO 500 mg BIDCM [facility] Administration Nutritional Formula (Lactose Free) 120 ml 08/25/17 12:00 08/25/17 11:46 Ensure Enlive PO Not Given 4X/DAY [facility] Pantoprazole Sodium 40 mg 08/21/17 08:00 08/25/17 08:10 Protonix PO 40 mg DAILY@0800 [facility] Administration Polyethylene Glycol 17 gm 08/24/17 08:00 08/25/17 08:12 Miralax PO 17 gm DAILY@0800 [facility] Administration Polysaccharide Iron Complex 150 mg 08/22/17 08:00 08/25/17 08:11 Ferrex 150 PO 150 mg DAILYCM [facility] Administration Senna/Docusate Sodium 1 tablet 08/24/17 08:00 08/25/17 11:11 Senokot-S, [place]-Colace PO 1 tablet BID@0800,1800 [facility] Administration Sodium Chloride 1 spray 08/24/17 17:48 08/24/17 18:42 [place] Nasal [place] NASAL 1 spray BID PRN PRN Administration NASAL DRYNESS Tamsulosin HCl 0.4 mg 08/21/17 18:45 08/24/17 17:30 Flomax PO 0.4 mg DAILY@1845 [facility] Administration Tramadol HCl 50 mg 08/23/17 18:03 08/24/17 11:41 Ultram PO 50 mg Q6H PRN PRN Administration MODERATE PAIN (4-5/10) Tuberculin PPD 5 tu 08/28/17 10:00 Tubersol, Aplisol, Ppd ID 08/28/17 10:01 X1 ONE Venlafaxine HCl 75 mg 08/20/17 22:00 08/25/17 08:11 Effexor PO 75 mg TIDCM [facility] Administration Problem List (Last Updated 03/10/17 @ 13:18 by MERARY AndersC) Fall (Acute) Closed head injury (Acute) Coronary artery disease (Chronic) Stroke (Chronic) Atrial fibrillation (Chronic) Diabetes mellitus (Chronic) BPH (benign prostatic hyperplasia) (Chronic) Vital Signs Temp Pulse Resp BP Pulse Ox 97.0 F L 70 18 118/58 L 98 08/24/17 15:26 08/24/17 15:26 08/24/17 15:26 08/24/17 15:26 08/24/17 15:26 Oxygen Delivery Method Room Air Weight: 81.647 kg Body Mass Index (BMI) 25.8 Sodium 140 mmol/L (136-145) 08/21/17 06:28 Potassium 3.9 mmol/L (3.5-5.1) 08/21/17 06:28 Chloride 104 mmol/L (98-107) 08/21/17 06:28 Carbon Dioxide 29.0 mmol/L (21.0-32.0) 08/21/17 06:28 Anion Gap 7 (5-15) 08/21/17 06:28 BUN 37 mg/dL (7-18) H 08/21/17 06:28 Creatinine 1.72 mg/dL (0.70-1.30) H 08/21/17 06:28 Est GFR (MDRD) Af Amer 49 mL/min (>60) L 08/21/17 06:28 Est GFR (MDRD) Non-Af 41 mL/min (>60) L 08/21/17 06:28 BUN/Creatinine Ratio 21.5 RATIO (10-20) H 08/21/17 06:28 Glucose 139 mg/dL (74-106) H 08/21/17 06:28 Assessment/Plan: 1) Pain APAP for mild pain, tramadol for moderate pain, gabapentin scheduled. Continue to monitor prn medication use, daily pain scores. 2) AFib/CAD Apixaban, atorvastatin, clopidogrel. Continue to monitor s/s bleeding, lipids , s/s chest pain. 3) DM2 Metformin twice daily. Continue to monitor BGT, renal function. 4) GI Pantoprazole daily. Continue to monitor s/s GI distress. 5) Derm Calmoseptine, emollient. Continue to monitor clinically. 6) BPH Tamsulosin. Continue to monitor for symptoms. 7) Nutrition Ergocalciferol, Ensure, Fe. Continue to monitor clinically. 8) Insomnia Melatonin at HS. Continue to monitor for insomnia. Psychotropic Medications: 9) Depression Venlafaxine 3x daily. Continue to monitor s/s depression. Unnecessary Medications: None Bowel Regimen: 10) Senna/s, PEG, prn bisacodyl. Continue to monitor prn medication use, for constipation/diarrhea. Date of Note:: 08/25/17 - Provider Comments Provider responsibility: Provider responsible to enter orders to implement recommendations <Eliecer Benson Chi - Last Filed: 08/25/17 16:08> Progress Note - Pharmacy Subjective: [] Objective: Allergies morphine Allergy (Verified 03/17/17 06:51) Rash Current Medications Generic Name Dose Route Start Last Admin Trade Name Freq PRN Reason Stop Dose Admin Acetaminophen 1,000 mg 08/20/17 21:30 08/24/17 11:43 Tylenol PO 1,000 mg Q8H PRN PRN Administration MILD PAIN (1-3/10) Apixaban 5 mg 08/20/17 22:00 08/25/17 08:11 Eliquis PO 5 mg BIDCM [facility] Administration Atorvastatin Calcium 40 mg 08/20/17 22:00 08/24/17 19:46 Lipitor PO 40 mg QHS [facility] Administration Bisacodyl 10 mg 08/21/17 20:07 08/24/17 08:08 Dulcolax PO 10 mg DAILY PRN Administration Constipation Calamine/Phenol 1 applic 08/21/17 08:00 08/25/17 08:11 Calmoseptine Ointment TOPICAL 1 applicatio 0800,2200 [facility] Administration Protocol Clopidogrel Bisulfate 75 mg 08/21/17 08:00 08/25/17 08:10 Plavix PO 75 mg DAILY@0800 [facility] Administration Emollient Ointment 1 applic 08/21/17 08:00 08/25/17 08:11 Eucerin Intensive Repair TOPICAL 1 applicatio 0800,2200 [facility] Administration Protocol Ergocalciferol 50,000 unit 08/21/17 08:00 08/21/17 08:15 Vitamin D PO 50,000 unit Q7D [facility] Administration Furosemide 20 mg 08/25/17 08:00 08/25/17 13:24 Lasix PO 20 mg DAILY@0800 [facility] Administration Gabapentin 100 mg 08/20/17 22:00 08/25/17 13:24 Neurontin PO 100 mg TIDCM [facility] Administration Guaifenesin 600 mg 08/24/17 08:00 08/25/17 08:10 Mucinex PO 600 mg BID@0800,1800 [facility] Administration Melatonin 3 mg 08/20/17 22:00 08/24/17 19:46 Melatonin PO 3 mg QHS [facility] Administration Metformin HCl 500 mg 08/21/17 08:00 08/25/17 08:10 Glucophage PO 500 mg BIDCM [facility] Administration Nutritional Formula (Lactose Free) 120 ml 08/25/17 12:00 08/25/17 11:46 Ensure Enlive PO Not Given 4X/DAY [facility] Pantoprazole Sodium 40 mg 08/21/17 08:00 08/25/17 08:10 Protonix PO 40 mg DAILY@0800 [facility] Administration Polyethylene Glycol 17 gm 08/24/17 08:00 08/25/17 08:12 Miralax PO 17 gm DAILY@0800 [facility] Administration Polysaccharide Iron Complex 150 mg 08/22/17 08:00 08/25/17 08:11 Ferrex 150 PO 150 mg DAILYCM [facility] Administration Senna/Docusate Sodium 1 tablet 08/24/17 08:00 08/25/17 11:11 Senokot-S, [place] PO 1 tablet BID@0800,1800 [facility] Administration Sodium Chloride 1 spray 08/24/17 17:48 08/24/17 18:42 [place] Nasal [place] NASAL 1 spray BID PRN PRN Administration NASAL DRYNESS Tamsulosin HCl 0.4 mg 08/21/17 18:45 08/24/17 17:30 Flomax PO 0.4 mg DAILY@1845 [facility] Administration Tramadol HCl 50 mg 08/23/17 18:03 08/24/17 11:41 Ultram PO 50 mg Q6H PRN PRN Administration MODERATE PAIN (4-5/10) Tuberculin PPD 5 tu 08/28/17 10:00 Tubersol, Aplisol, Ppd ID 08/28/17 10:01 X1 ONE Venlafaxine HCl 75 mg 08/20/17 22:00 08/25/17 13:24 Effexor PO 75 mg TIDCM [facility] Administration Problem List (Last Updated 03/10/17 @ 13:18 by Kunal Newman NP-C) Fall (Acute) Closed head injury (Acute) Coronary artery disease (Chronic) Stroke (Chronic) Atrial fibrillation (Chronic) Diabetes mellitus (Chronic) BPH (benign prostatic hyperplasia) (Chronic) Vital Signs Temp Pulse Resp BP Pulse Ox 98.5 F 70 26 H 103/34 L 100 08/25/17 15:07 08/25/17 15:07 08/25/17 15:07 08/25/17 15:07 08/25/17 15:07 Oxygen Delivery Method Room Air Weight: 83.178 kg Body Mass Index (BMI) 25.8 Sodium 140 mmol/L (136-145) 08/21/17 06:28 Potassium 3.9 mmol/L (3.5-5.1) 08/21/17 06:28 Chloride 104 mmol/L (98-107) 08/21/17 06:28 Carbon Dioxide 29.0 mmol/L (21.0-32.0) 08/21/17 06:28 Anion Gap 7 (5-15) 08/21/17 06:28 BUN 37 mg/dL (7-18) H 08/21/17 06:28 Creatinine 1.72 mg/dL (0.70-1.30) H 08/21/17 06:28 Est GFR (MDRD) Af Amer 49 mL/min (>60) L 08/21/17 06:28 Est GFR (MDRD) Non-Af 41 mL/min (>60) L 08/21/17 06:28 BUN/Creatinine Ratio 21.5 RATIO (10-20) H 08/21/17 06:28 Glucose 139 mg/dL (74-106) H 08/21/17 06:28 Assessment/Plan: Psychotropic Medications: Unnecessary Medications: Bowel Regimen: - Provider Comments Provider responsibility: Provider responsible to enter orders to implement recommendations Provider Comments to Recommendations by Pharmacy: Agree
[2017-08-25] MEDS: Furosemide 20 MG Tablet PO (13:24)
--- NOTE | 2017-08-25 13:42 | CASEMGMT ---
Social Work BIMS and PHQ 9 interviews completed on this date for MDS assessment. When asked if pt has thoughts of harming himself pt states that he does. SW asked pt if these are current feelings or from the past and pt answers both. SW inquired if pt has a plan to harm himself and he states he does and that he has a 9 mm that he will use on his brain. SW asked where the gun was and pt states it is hidden and only he knows where it is and no one will stop him if he wants to do this. When asked if the gun is with the pt now in his room pt informs SW that it is not here at [facility] and it is not even in the area. Pt then states that he will not do anything to hurt himself while he is here. SW enocouraged verbalization of feelings surrounding thought of harming self. Pt is open to discussion and verbalizes feelings with SW. Pt expressing difficulty with children and his desire to work this situation out. SW will notify nursing and physician regarding pt expression and continue to follow. [place]
[2017-08-25 15:07] VITALS: BP 103/34; PULSE 70; RESP 26; TEMP 36.9; O2SAT 100
[2017-08-25] MEDS: Tamsulosin HCl 0.4 MG Capsule PO (18:03)
--- NOTE | 2017-08-25 18:13 | RAD_ITS ---
STUDY: X-RAY - RIGHT FOOT CLINICAL: Male, 82 years old. Pain, fall TECHNIQUE: 3 view(s) of the foot. COMPARISON: None. FINDINGS: Normal talus, calcaneus, and tarsal bones. Normal visualized subtalar, talonavicular, calcaneocuboid, tarsal and tarsometatarsal articulations. Normal metatarsi. Normal metatarsophalangeal joint of the great toe. Normal tibial and fibular sesamoid bones. Normal interphalangeal joint of the great toe. Normal phalanges of the great toe. Normal second through fifth metatarsophalangeal joints. Normal interphalangeal joints and phalanges of the lesser toes. The soft tissue structures are unremarkable. RAD/Foot min 3 Views IMPRESSION: Normal x-ray examination of the foot. Electronically Signed: Hill Palmer DO at 19:41 EDT , Service support ,
--- NOTE | 2017-08-25 18:13 | RAD_ITS ---
STUDY: X-RAY - RIGHT ANKLE REASON FOR EXAM: Male, 82 years old. Fall, pain TECHNIQUE: 3 view(s) of the ankle. COMPARISON: None. FINDINGS: Normal visualized distal tibia and fibula. Normal medial and lateral malleoli. Normal tibiotalar articulation and ankle mortise. Normal visualized talus and calcaneus. The visualized subtalar, talonavicular, calcaneocuboid and tarsal articulations are normal. Lateral soft tissue swelling. RAD/Ankle min 3 Views IMPRESSION: No fracture or dislocation. Mild lateral soft tissue swelling. Electronically Signed: Hill Palmer DO at 22:22 EDT , Service support ,
--- NOTE | 2017-08-25 18:26 | NURSING ---
Addendum entered by Lesia Mason 08/25/17 22:46: Dr. Benson updated on xrays. NNO. Original Note: This nurse in to assess RLE, edema noted and bruise to right ankle/lower leroy. Pt stating that the bruise is from his fall prior to admission or from transferring in his room. Pt denies mistreatment from staff, currently on blood thinners. Dr. Benson and community relations specialist updated on bruise. Bruise outlined. N.O. from Dr. Benson to xray right ankle and foot. Pt aware.
[2017-08-25] MEDS: Atorvastatin Calcium 40 MG Tablet PO (20:19)
[2017-08-25] MEDS: MELATONIN 3 MG TABLET PO (20:19)
[2017-08-25 20:23] VITALS: PULSE 74; RESP 18; O2SAT 95
[2017-08-26 05:46] LABS: Bedside Glucose 95 mg/dL (70-110)
[2017-08-26] MEDS: Venlafaxine HCl 75 MG Tablet PO ×3 (09:27→17:09)
[2017-08-26] MEDS: Menthol/Lanolin/Calamine/Znox 113 GM Tube 1 APPLIC TOPICAL ×2 (09:28→20:10)
[2017-08-26] MEDS: Gabapentin 100 MG Capsule PO ×3 (09:28→17:09)
[2017-08-26] MEDS: APIXABAN 5 MG TABLET PO ×2 (09:29→17:09)
[2017-08-26] MEDS: Iron Polysaccharide Complex 150 MG CAPSULE PO (09:30)
[2017-08-26] MEDS: guaiFENesin 600 MG Tablet PO ×2 (09:31→17:09)
[2017-08-26] MEDS: Polyethylene Glycol 3350 17 GM PACKET PO (09:31)
[2017-08-26] MEDS: Furosemide 20 MG Tablet PO (09:31)
[2017-08-26] MEDS: Pantoprazole Sodium 40 MG Tablet PO (09:32)
[2017-08-26] MEDS: Senna/Docusate Sodium 1 Tablet PO ×2 (09:32→17:09)
[2017-08-26] MEDS: Clopidogrel Bisulfate 75 MG Tablet PO (09:32)
--- NOTE | 2017-08-26 13:45 | RAD_ITS ---
STUDY: X-RAY - RIGHT KNEE REASON FOR EXAM: Male, 82 years old. Pain and swelling status post fall TECHNIQUE: 4 view(s) of the knee. COMPARISON: None. 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 There is no evidence of fracture, dislocation, or implant loosening. 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 Soft tissue vascular calcifications are present. RAD/Knee 4 or More Views IMPRESSION: Status post total right knee replacement changes. There is no evidence of implant loosening, fracture, or dislocation. 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 Vascular calcifications are noted. Electronically Signed: Aneesh Freire MD at 16:54 EDT , Service support ,
[2017-08-26 15:28] VITALS: BP 110/54; PULSE 71; RESP 16; TEMP 36.4; O2SAT 100
--- NOTE | 2017-08-26 15:48 | MDS.RN ---
Pain interview for keagan 08/27/17 completed
[2017-08-26] MEDS: Bisacodyl 10 MG Suppository RECTAL (15:49)
--- NOTE | 2017-08-26 16:54 | CASEMGMT ---
Social Work Following up with resident on comments of suicidal ideation. Resident resting in bed. This social welfare administrator asking if this would be a good time to talk. Resident reporting to be tried from today and that this was not a good time to talk. Social work to keep following up with. Staff and therapy reporting that resident had a good day and did well in therapy today. Support given. Social work to continue to follow. Frannie CARLOSW, COMPUTER BOOKKEEPER
[2017-08-26] MEDS: Tamsulosin HCl 0.4 MG Capsule PO (17:09)
[2017-08-26] MEDS: MELATONIN 3 MG TABLET PO (20:12)
[2017-08-26] MEDS: Atorvastatin Calcium 40 MG Tablet PO (20:12)
[2017-08-26 20:18] VITALS: PULSE 68; RESP 16; O2SAT 98
[2017-08-27 06:31] LABS: BUN 32 mg/dL (7-18); Creatinine, Serum 1.34 mg/dL (0.70-1.30); Glucose 113 mg/dL (74-106)
[2017-08-27 06:32] LABS: Anion Gap 7 (5-15); BUN/Creat Ratio 23.9 RATIO (10-20); Calcium,Total 8.8 mg/dL (8.5-10.1); Chloride 101 mmol/L (98-107); EST Glomerular Filtration Rate 54 mL/min (>60); Est Glom Filt Rate - Afr Amer 66 mL/min (>60); Estimated Creatinine Clearance 43.88 ml/min; Potassium 4.6 mmol/L (3.5-5.1); Sodium Level 140 mmol/L (136-145)
[2017-08-27 07:15] LABS: Bedside Glucose 115 mg/dL (70-110)
[2017-08-27] MEDS: Iron Polysaccharide Complex 150 MG CAPSULE PO (08:59)
[2017-08-27] MEDS: Gabapentin 100 MG Capsule PO ×3 (08:59→17:18)
[2017-08-27] MEDS: APIXABAN 5 MG TABLET PO ×2 (08:59→17:18)
[2017-08-27] MEDS: Venlafaxine HCl 75 MG Tablet PO ×3 (08:59→17:18)
[2017-08-27] MEDS: Senna/Docusate Sodium 1 Tablet PO ×2 (09:00→17:18)
[2017-08-27] MEDS: guaiFENesin 600 MG Tablet PO ×2 (09:00→17:18)
[2017-08-27] MEDS: Furosemide 20 MG Tablet PO (09:00)
[2017-08-27] MEDS: Menthol/Lanolin/Calamine/Znox 113 GM Tube 1 APPLIC TOPICAL ×2 (09:01→20:28)
[2017-08-27] MEDS: Clopidogrel Bisulfate 75 MG Tablet PO (09:01)
[2017-08-27] MEDS: Pantoprazole Sodium 40 MG Tablet PO (09:01)
[2017-08-27] MEDS: Acetaminophen 500 MG Tablet 1000 MG PO (09:04)
--- NOTE | 2017-08-27 09:22 | NURSING ---
Addendum entered by Sneha Matthews 08/27/17 12:23: Patient complaining of 8/10 head pain that he describes as sharp and shooting from neck to head. Patient states the pain began this morning and has worsened. Pain is more severe with bending and turning the head. Tylenol ineffective. Will update Dr. Benson. 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 Upon evaluation, describes the pain as a shooting sharp pain that occurs only when he moves his head, rated at 8/10 on VAS pain scale. Vitals: Bp 109/59 at semi-fowlers, heart rate 70, Spo2 97% on RA, Temp 97.6 oral. Pupils were 2 mm and reactive to light, sales systems engineer strength weaker on right side d/t hx of CVA. Alert and oriented. Tylenol 1000 mg given PO. Reported findings to YAYA Hoover.
--- NOTE | 2017-08-27 14:26 | CASEMGMT ---
Insurance Clinical updates faxed to insurance company. Will await continued stay determination. Auth # [id number] [place] [place]
[2017-08-27 15:40] VITALS: BP 116/67; PULSE 68; RESP 20; TEMP 36.6; O2SAT 96
--- NOTE | 2017-08-27 15:58 | CASEMGMT ---
Insurance Continued stay approved with update due 09/02. Auth # [id number] Pt informed of decision. [place]
--- NOTE | 2017-08-27 16:03 | CASEMGMT ---
Social Work SW attempted to visit with pt today regarding mood issues expressed over the past days. SW enters room and pt sleeping. SW wakes pt to talk and pt reports he has a bad headache and does not want to talk to SW at this time. SW will continue to follow for support. [place]
[2017-08-27] MEDS: Ketorolac 60 MG/2 ML Vial IM (17:12)
[2017-08-27] MEDS: Orphenadrine 60 MG/2 ML Ampul IM (17:15)
[2017-08-27] MEDS: Tamsulosin HCl 0.4 MG Capsule PO (17:18)
[2017-08-27] MEDS: Atorvastatin Calcium 40 MG Tablet PO (20:31)
[2017-08-27] MEDS: MELATONIN 3 MG TABLET PO (20:31)
[2017-08-27 20:34] VITALS: PULSE 70; RESP 18; O2SAT 95
[2017-08-28 06:55] LABS: Bedside Glucose 87 mg/dL (70-110)
[2017-08-28 07:02] LABS: Absolute Lymphocyte Count 0.65 X10^3/ul (0.83-4.51); Absolute Neutrophil Count 2.3 X10^3/uL (2.0-7.7); Eosinophil# 0.06 X10^3/uL; Eosinophils% 1.6 % (0-5); Hematocrit 29.1 % (40-54); Hemoglobin 8.9 g/dl (13.0-16.5); Lymphocyte # 0.65 X10^3/ul (4.0); Mean Corp Hgb Conc 30.6 g/gl (32-36); Mean Corpuscular Hgb 28.8 pg (27.0-32.0); Mean Corpuscular Volume 94.2 fL (80-94); Mean Platelet Vol. 9.2 fl (6.2-12.0); Monocyte# 0.76 X10^3/uL; Monocyte% 19.9 % (0-10); Neutrophil # 2.33 X10^3/uL (2.7-7.7); Platelet Count 119 K/mm3 (150-450); RBC Distribution Width CV 15.4 % (11.6-14.6); RBC Distribution Width SD 50.5 fl (35.1-43.9); Red Blood Count 3.09 M/mm3 (4.6-6.2); White Blood Count 3.8 K/mm3 (4.4-11.0)
[2017-08-28 07:07] LABS: POSITIVE COUNT NO; POSITIVE DIFFERENTIAL NO; POSITIVE MORPHOLOGY NO
[2017-08-28 08:04] LABS: Anion Gap 8 (5-15); BUN 40 mg/dL (7-18); BUN/Creat Ratio 29.6 RATIO (10-20); Calcium,Total 8.7 mg/dL (8.5-10.1); Chloride 102 mmol/L (98-107); Creatinine, Serum 1.35 mg/dL (0.70-1.30); EST Glomerular Filtration Rate 54 mL/min (>60); Est Glom Filt Rate - Afr Amer 65 mL/min (>60); Estimated Creatinine Clearance 43.56 ml/min; Glucose 91 mg/dL (74-106); Potassium 4.5 mmol/L (3.5-5.1); Sodium Level 141 mmol/L (136-145)
[2017-08-28] MEDS: Clopidogrel Bisulfate 75 MG Tablet PO (08:13)
[2017-08-28] MEDS: guaiFENesin 600 MG Tablet PO ×2 (08:13→18:06)
[2017-08-28] MEDS: APIXABAN 5 MG TABLET PO ×2 (08:13→18:06)
[2017-08-28] MEDS: Venlafaxine HCl 75 MG Tablet PO ×3 (08:13→18:06)
[2017-08-28] MEDS: Pantoprazole Sodium 40 MG Tablet PO (08:13)
[2017-08-28] MEDS: Furosemide 20 MG Tablet PO (08:13)
[2017-08-28] MEDS: Gabapentin 100 MG Capsule PO ×3 (08:13→18:06)
[2017-08-28] MEDS: Menthol/Lanolin/Calamine/Znox 113 GM Tube 1 APPLIC TOPICAL ×2 (08:14→20:09)
[2017-08-28] MEDS: Iron Polysaccharide Complex 150 MG CAPSULE PO (08:14)
--- NOTE | 2017-08-28 12:02 | NURSING ---
DR PEREZ REVIEWED LABS, NO NEW ORDERS.
[2017-08-28 15:32] VITALS: BP 108/63; PULSE 70; RESP 20; TEMP 36.7; O2SAT 97
[2017-08-28] MEDS: Tamsulosin HCl 0.4 MG Capsule PO (18:06)
[2017-08-28 20:00] VITALS: BP 96/53; PULSE 70; RESP 18; TEMP 36.6; O2SAT 99
[2017-08-28] MEDS: Atorvastatin Calcium 40 MG Tablet PO (20:10)
[2017-08-28] MEDS: MELATONIN 3 MG TABLET PO (20:10)
[2017-08-29 07:11] LABS: Bedside Glucose 90 mg/dL (70-110)
[2017-08-29] MEDS: Clopidogrel Bisulfate 75 MG Tablet PO (08:23)
[2017-08-29] MEDS: Senna/Docusate Sodium 1 Tablet PO ×2 (08:24→17:14)
[2017-08-29] MEDS: Venlafaxine HCl 75 MG Tablet PO ×3 (08:24→17:15)
[2017-08-29] MEDS: Pantoprazole Sodium 40 MG Tablet PO (08:24)
[2017-08-29] MEDS: Iron Polysaccharide Complex 150 MG CAPSULE PO (08:24)
[2017-08-29] MEDS: APIXABAN 5 MG TABLET PO ×2 (08:24→17:15)
[2017-08-29] MEDS: Furosemide 20 MG Tablet PO (08:24)
[2017-08-29] MEDS: guaiFENesin 600 MG Tablet PO ×2 (08:24→17:14)
[2017-08-29] MEDS: Gabapentin 100 MG Capsule PO ×3 (08:25→17:14)
[2017-08-29] MEDS: Menthol/Lanolin/Calamine/Znox 113 GM Tube 1 APPLIC TOPICAL ×2 (08:29→21:08)
[2017-08-29 16:00] VITALS: BP 117/60; PULSE 71; RESP 20; TEMP 36.7; O2SAT 97
--- NOTE | 2017-08-29 17:10 | NURSING ---
pt CT scan of rt knee approved by insurance, PT down and back from CT.
[2017-08-29] MEDS: Tamsulosin HCl 0.4 MG Capsule PO (17:14)
[2017-08-29] MEDS: Atorvastatin Calcium 40 MG Tablet PO (21:07)
[2017-08-29] MEDS: MELATONIN 3 MG TABLET PO (21:07)
[2017-08-30 07:04] LABS: Bedside Glucose 79 mg/dL (70-110)
[2017-08-30] MEDS: Polyethylene Glycol 3350 17 GM PACKET PO (08:52)
[2017-08-30] MEDS: Iron Polysaccharide Complex 150 MG CAPSULE PO (08:52)
[2017-08-30] MEDS: Venlafaxine HCl 75 MG Tablet PO ×3 (08:52→17:47)
[2017-08-30] MEDS: Senna/Docusate Sodium 1 Tablet PO (08:52)
[2017-08-30] MEDS: guaiFENesin 600 MG Tablet PO ×2 (08:52→17:48)
[2017-08-30] MEDS: Pantoprazole Sodium 40 MG Tablet PO (08:52)
[2017-08-30] MEDS: Clopidogrel Bisulfate 75 MG Tablet PO (08:52)
[2017-08-30] MEDS: APIXABAN 5 MG TABLET PO ×2 (08:52→17:49)
[2017-08-30] MEDS: Gabapentin 100 MG Capsule PO ×3 (08:52→17:47)
[2017-08-30] MEDS: Furosemide 20 MG Tablet PO (08:53)
[2017-08-30] MEDS: Menthol/Lanolin/Calamine/Znox 113 GM Tube 1 APPLIC TOPICAL (08:53)
[2017-08-30 15:35] VITALS: BP 104/59; PULSE 69; RESP 20; TEMP 36.6; O2SAT 97
[2017-08-30] MEDS: Tamsulosin HCl 0.4 MG Capsule PO (17:48)
[2017-08-30 20:37] VITALS: PULSE 74; RESP 18; O2SAT 96
--- NOTE | 2017-08-30 20:57 | NURSING ---
This nurse entered pt room, pt asked what are you doing? Nurse stated My name is Amina I'm going to be your nurse bekah I have some medicine to give you Pt immediately responded Oh no you're not I don't want it. Explained what medications were scheduled and what they were for. Pt said come back in the morning leave me alone Asked pt if he was alright and feeling okay, he stated Yes, I don't want any medicine right now I'm fine Encouraged pt to call if he changed his mind or needed anything at all to which he was agreeable. Denied any pain or problems. RN aware, continuing to monitor.
[2017-08-31 07:00] LABS: Bedside Glucose 69 mg/dL (70-110)
[2017-08-31 07:00] LABS: Bedside Glucose 89 mg/dL (70-110)
[2017-08-31] MEDS: Venlafaxine HCl 75 MG Tablet PO ×3 (08:44→16:48)
[2017-08-31] MEDS: Gabapentin 100 MG Capsule PO ×3 (08:44→16:48)
[2017-08-31] MEDS: Menthol/Lanolin/Calamine/Znox 113 GM Tube 1 APPLIC TOPICAL (08:44)
[2017-08-31] MEDS: APIXABAN 5 MG TABLET PO ×2 (08:45→16:47)
[2017-08-31] MEDS: Iron Polysaccharide Complex 150 MG CAPSULE PO (08:45)
[2017-08-31] MEDS: Furosemide 20 MG Tablet PO (08:45)
[2017-08-31] MEDS: Clopidogrel Bisulfate 75 MG Tablet PO (08:46)
[2017-08-31] MEDS: Polyethylene Glycol 3350 17 GM PACKET PO (08:46)
[2017-08-31] MEDS: Pantoprazole Sodium 40 MG Tablet PO (08:46)
[2017-08-31] MEDS: guaiFENesin 600 MG Tablet PO ×2 (08:46→16:48)
[2017-08-31] MEDS: Senna/Docusate Sodium 1 Tablet PO ×2 (08:47→16:49)
--- NOTE | 2017-08-31 11:41 | NURSING ---
neurontin and effexor given to patient. patient refusing to take pills at this moment and refusing to give pills back to me to be distributed later. pills currently on lunch tray. pt very agitated at present states to leave him the hell alone and let him eat his lunch.
[2017-08-31 15:25] VITALS: BP 125/68; PULSE 70; RESP 16; TEMP 35.9; O2SAT 90
[2017-08-31] MEDS: Tamsulosin HCl 0.4 MG Capsule PO (16:50)
--- NOTE | 2017-08-31 20:33 | NURSING ---
Pt refused all hs medications/treatments at this time, asking to be left alone. Left alone and will reproach. RN aware.
[2017-09-01 07:16] LABS: Bedside Glucose 73 mg/dL (70-110)
[2017-09-01] MEDS: Senna/Docusate Sodium 1 Tablet PO (08:12)
[2017-09-01] MEDS: Clopidogrel Bisulfate 75 MG Tablet PO (08:12)
[2017-09-01] MEDS: APIXABAN 5 MG TABLET PO ×2 (08:12→20:15)
[2017-09-01] MEDS: Iron Polysaccharide Complex 150 MG CAPSULE PO (08:12)
[2017-09-01] MEDS: Venlafaxine HCl 75 MG Tablet PO ×3 (08:12→20:14)
[2017-09-01] MEDS: Gabapentin 100 MG Capsule PO ×3 (08:12→20:14)
[2017-09-01] MEDS: guaiFENesin 600 MG Tablet PO ×2 (08:12→20:14)
[2017-09-01] MEDS: Furosemide 20 MG Tablet PO (08:12)
[2017-09-01] MEDS: Pantoprazole Sodium 40 MG Tablet PO (08:12)
[2017-09-01] MEDS: Menthol/Lanolin/Calamine/Znox 113 GM Tube 1 APPLIC TOPICAL ×2 (08:18→23:53)
[2017-09-01 10:00] VITALS: PULSE 66; RESP 18; O2SAT 95
[2017-09-01 16:00] VITALS: BP 120/58; PULSE 72; RESP 18; TEMP 36.2; O2SAT 94
--- NOTE | 2017-09-01 18:15 | NURSING ---
Pt stating he isnt feeling well, and is wore out, Pt doesn't want his medications at this time said he would like to wait. Alondra JAVIER aware
[2017-09-01] MEDS: MELATONIN 3 MG TABLET PO (20:13)
[2017-09-01] MEDS: Atorvastatin Calcium 40 MG Tablet PO (20:14)
[2017-09-01] MEDS: Tamsulosin HCl 0.4 MG Capsule PO (20:14)
[2017-09-02 06:55] LABS: Bedside Glucose 75 mg/dL (70-110)
--- NOTE | 2017-09-02 06:58 | NURSING ---
pt BS 75 given cranberry juice will recheck in 15 minute
[2017-09-02] MEDS: APIXABAN 5 MG TABLET PO ×2 (08:19→18:00)
[2017-09-02] MEDS: Gabapentin 100 MG Capsule PO ×3 (08:19→17:59)
[2017-09-02] MEDS: Venlafaxine HCl 75 MG Tablet PO ×3 (08:19→17:59)
[2017-09-02] MEDS: Furosemide 20 MG Tablet PO (08:19)
[2017-09-02] MEDS: Iron Polysaccharide Complex 150 MG CAPSULE PO (08:19)
[2017-09-02] MEDS: Pantoprazole Sodium 40 MG Tablet PO (08:19)
[2017-09-02] MEDS: Clopidogrel Bisulfate 75 MG Tablet PO (08:19)
[2017-09-02] MEDS: guaiFENesin 600 MG Tablet PO ×2 (08:19→17:59)
--- NOTE | 2017-09-02 12:08 | CASEMGMT ---
Brief interview for mental status (BIMS) and resident mood interview (PHQ-9) completed on this day. BIMS score 15. PHQ-9 score 06/01. Note in regards to PHQ-9 assessment: Resident is reporting to have no current thoughts of suicide and denies and suicidal ideation. Resident is reporting to have mood swings and to feel down at times. Support given. Will continue to follow. Frannie BETHEA, FRESH FOODS CLERK
--- NOTE | 2017-09-02 12:11 | CASEMGMT ---
Insurance Clinical information faxed. Pending continued stay approval. Auth#[id number] Frannie BETHEA, MULTIMEDIA PRODUCER
--- NOTE | 2017-09-02 14:57 | MDS.RN ---
Pain interview for ARMANDO 09/03/17 completed.
[2017-09-02 15:27] VITALS: BP 103/48; PULSE 70; RESP 18; TEMP 36.5; O2SAT 100
--- NOTE | 2017-09-02 15:45 | CASEMGMT ---
Insurance Continued stay approved with next update due on 09/07/17. Auth#[id number] Frannie BETHEA, SNUFF PACKING MACHINE OPERATOR
[2017-09-02] MEDS: Tamsulosin HCl 0.4 MG Capsule PO (17:59)
[2017-09-02] MEDS: MELATONIN 3 MG TABLET PO (21:00)
[2017-09-02] MEDS: Atorvastatin Calcium 40 MG Tablet PO (21:00)
[2017-09-02] MEDS: Menthol/Lanolin/Calamine/Znox 113 GM Tube 1 APPLIC TOPICAL (21:02)
[2017-09-02 21:30] VITALS: PULSE 70; O2SAT 99
[2017-09-03 06:41] LABS: Bedside Glucose 84 mg/dL (70-110)
--- NOTE | 2017-09-03 07:02 | NURSING ---
pt BS 84 was given cranberry juice this morning.
[2017-09-03] MEDS: Pantoprazole Sodium 40 MG Tablet PO (08:28)
[2017-09-03] MEDS: Clopidogrel Bisulfate 75 MG Tablet PO (08:28)
[2017-09-03] MEDS: Gabapentin 100 MG Capsule PO ×3 (08:28→19:27)
[2017-09-03] MEDS: Polyethylene Glycol 3350 17 GM PACKET PO (08:28)
[2017-09-03] MEDS: Venlafaxine HCl 75 MG Tablet PO ×3 (08:28→19:27)
[2017-09-03] MEDS: Iron Polysaccharide Complex 150 MG CAPSULE PO (08:28)
[2017-09-03] MEDS: Senna/Docusate Sodium 1 Tablet PO ×2 (08:28→19:27)
[2017-09-03] MEDS: APIXABAN 5 MG TABLET PO ×2 (08:28→19:27)
[2017-09-03] MEDS: guaiFENesin 600 MG Tablet PO ×2 (08:28→19:27)
[2017-09-03] MEDS: Furosemide 20 MG Tablet PO (08:28)
[2017-09-03] MEDS: Menthol/Lanolin/Calamine/Znox 113 GM Tube 1 APPLIC TOPICAL ×2 (08:36→20:34)
[2017-09-03 15:27] VITALS: BP 114/60; PULSE 71; RESP 20; TEMP 36.4; O2SAT 100
[2017-09-03] MEDS: Tamsulosin HCl 0.4 MG Capsule PO (19:27)
[2017-09-03 20:26] VITALS: RESP 16
[2017-09-03] MEDS: MELATONIN 3 MG TABLET PO (20:33)
[2017-09-03] MEDS: Atorvastatin Calcium 40 MG Tablet PO (20:33)
[2017-09-04 07:01] LABS: Bedside Glucose 99 mg/dL (70-110)
[2017-09-04 08:20] LABS: Absolute Lymphocyte Count 0.56 X10^3/ul (0.83-4.51); Absolute Neutrophil Count 2.1 X10^3/uL (2.0-7.7); Basophil# 0.01 X10^3/uL; Basophil% 0.3 % (0-1); Eosinophil# 0.05 X10^3/uL; Eosinophils% 1.5 % (0-5); Hematocrit 32.4 % (40-54); Hemoglobin 9.6 g/dl (13.0-16.5); Lymphocyte # 0.56 X10^3/ul (4.0); Lymphocyte % 16.7 % (19-41); Mean Corp Hgb Conc 29.6 g/gl (32-36); Mean Corpuscular Hgb 28.2 pg (27.0-32.0); Mean Corpuscular Volume 95.3 fL (80-94); Mean Platelet Vol. 9.5 fl (6.2-12.0); Monocyte# 0.64 X10^3/uL; Monocyte% 19.1 % (0-10); Neutrophil # 2.07 X10^3/uL (2.7-7.7); Neutrophil % 61.8 % (47-70); Platelet Count 133 K/mm3 (150-450); RBC Distribution Width CV 15.5 % (11.6-14.6); RBC Distribution Width SD 51.3 fl (35.1-43.9); White Blood Count 3.4 K/mm3 (4.4-11.0)
[2017-09-04 08:22] LABS: Differential Indicated SCAN CRITERIA MET; POSITIVE COUNT NO; POSITIVE DIFFERENTIAL YES; POSITIVE MORPHOLOGY NO
[2017-09-04] MEDS: Pantoprazole Sodium 40 MG Tablet PO (08:23)
[2017-09-04] MEDS: guaiFENesin 600 MG Tablet PO ×2 (08:23→17:26)
[2017-09-04] MEDS: Iron Polysaccharide Complex 150 MG CAPSULE PO (08:23)
[2017-09-04] MEDS: Gabapentin 100 MG Capsule PO ×3 (08:23→17:26)
[2017-09-04] MEDS: Venlafaxine HCl 75 MG Tablet PO ×3 (08:23→17:26)
[2017-09-04] MEDS: Clopidogrel Bisulfate 75 MG Tablet PO (08:23)
[2017-09-04] MEDS: Furosemide 20 MG Tablet PO (08:23)
[2017-09-04] MEDS: APIXABAN 5 MG TABLET PO ×2 (08:26→17:26)
[2017-09-04] MEDS: Menthol/Lanolin/Calamine/Znox 113 GM Tube 1 APPLIC TOPICAL ×2 (08:27→21:00)
[2017-09-04 08:30] LABS: Anion Gap 8 (5-15); BUN 32 mg/dL (7-18); Calcium,Total 8.6 mg/dL (8.5-10.1); Chloride 106 mmol/L (98-107); Creatinine, Serum 1.28 mg/dL (0.70-1.30); EST Glomerular Filtration Rate 57 mL/min (>60); Est Glom Filt Rate - Afr Amer 69 mL/min (>60); Estimated Creatinine Clearance 45.94 ml/min; Glucose 78 mg/dL (74-106); Potassium 4.6 mmol/L (3.5-5.1); Sodium Level 143 mmol/L (136-145)
[2017-09-04 15:08] VITALS: BP 98/58; PULSE 70; RESP 18; TEMP 36.4; O2SAT 100
[2017-09-04] MEDS: Senna/Docusate Sodium 1 Tablet PO (17:26)
[2017-09-04] MEDS: Tamsulosin HCl 0.4 MG Capsule PO (17:26)
[2017-09-04] MEDS: MELATONIN 3 MG TABLET PO (20:58)
[2017-09-04] MEDS: Atorvastatin Calcium 40 MG Tablet PO (20:58)
[2017-09-04 21:00] VITALS: RESP 18; O2SAT 96
[2017-09-05 04:43] LABS: Differential Comment SCAN
[2017-09-05 07:06] LABS: Bedside Glucose 87 mg/dL (70-110)
--- NOTE | 2017-09-05 10:14 | NURSING ---
Pt refusing all AM meds, he states that he takes to many damn meds and we need to just leave him alone, this nurse attempted 2x. Sneha JAVIER aware
[2017-09-05] MEDS: Gabapentin 100 MG Capsule PO ×2 (12:31→18:05)
[2017-09-05] MEDS: Venlafaxine HCl 75 MG Tablet PO ×2 (12:31→18:04)
[2017-09-05 15:40] VITALS: BP 100/53; PULSE 71; RESP 18; TEMP 36.8; O2SAT 97
[2017-09-05] MEDS: APIXABAN 5 MG TABLET PO (18:04)
[2017-09-05] MEDS: Senna/Docusate Sodium 1 Tablet PO (18:05)
[2017-09-05] MEDS: Tamsulosin HCl 0.4 MG Capsule PO (18:05)
[2017-09-05] MEDS: guaiFENesin 600 MG Tablet PO (18:05)
[2017-09-05] MEDS: MELATONIN 3 MG TABLET PO (21:28)
[2017-09-05] MEDS: Atorvastatin Calcium 40 MG Tablet PO (21:28)
[2017-09-05] MEDS: Menthol/Lanolin/Calamine/Znox 113 GM Tube 1 APPLIC TOPICAL (21:33)
[2017-09-05 22:30] VITALS: PULSE 72; RESP 18; O2SAT 94
[2017-09-06 07:01] LABS: Bedside Glucose 95 mg/dL (70-110)
[2017-09-06] MEDS: Venlafaxine HCl 75 MG Tablet PO ×3 (07:48→17:21)
[2017-09-06] MEDS: Gabapentin 100 MG Capsule PO ×3 (07:49→17:21)
[2017-09-06] MEDS: APIXABAN 5 MG TABLET PO ×2 (07:49→17:20)
[2017-09-06] MEDS: Iron Polysaccharide Complex 150 MG CAPSULE PO (07:49)
[2017-09-06] MEDS: Furosemide 20 MG Tablet PO (07:50)
[2017-09-06] MEDS: guaiFENesin 600 MG Tablet PO ×2 (07:52→17:21)
[2017-09-06] MEDS: Clopidogrel Bisulfate 75 MG Tablet PO (07:52)
[2017-09-06] MEDS: Pantoprazole Sodium 40 MG Tablet PO (07:52)
[2017-09-06] MEDS: Senna/Docusate Sodium 1 Tablet PO ×2 (07:53→17:21)
[2017-09-06] MEDS: Menthol/Lanolin/Calamine/Znox 113 GM Tube 1 APPLIC TOPICAL ×2 (07:54→20:28)
[2017-09-06 13:29] LABS: Pathologist Review Reviewed
[2017-09-06 16:00] VITALS: BP 112/66; PULSE 71; RESP 20; TEMP 36.6; O2SAT 98
[2017-09-06] MEDS: Tamsulosin HCl 0.4 MG Capsule PO (17:22)
[2017-09-06] MEDS: Atorvastatin Calcium 40 MG Tablet PO (20:29)
[2017-09-06] MEDS: MELATONIN 3 MG TABLET PO (20:29)
[2017-09-06] MEDS: traMADol 50 MG Tablet PO (20:30)
[2017-09-07 06:46] LABS: Bedside Glucose 86 mg/dL (70-110)
[2017-09-07] MEDS: Gabapentin 100 MG Capsule PO ×3 (09:01→17:48)
[2017-09-07] MEDS: Venlafaxine HCl 75 MG Tablet PO ×3 (09:01→17:49)
[2017-09-07] MEDS: Senna/Docusate Sodium 1 Tablet PO ×2 (09:01→17:49)
[2017-09-07] MEDS: guaiFENesin 600 MG Tablet PO ×2 (09:02→17:47)
[2017-09-07] MEDS: APIXABAN 5 MG TABLET PO ×2 (09:02→17:47)
[2017-09-07] MEDS: Furosemide 20 MG Tablet PO (09:02)
[2017-09-07] MEDS: Clopidogrel Bisulfate 75 MG Tablet PO (09:02)
[2017-09-07] MEDS: Iron Polysaccharide Complex 150 MG CAPSULE PO (09:02)
[2017-09-07] MEDS: Menthol/Lanolin/Calamine/Znox 113 GM Tube 1 APPLIC TOPICAL ×2 (09:03→20:23)
[2017-09-07] MEDS: Pantoprazole Sodium 40 MG Tablet PO (09:03)
--- NOTE | 2017-09-07 12:34 | CASEMGMT ---
Insurance Clinical information faxed. Pending continued stay approval at this time. Auth#[id number] Frannie BETHEA, RADAR ENGINEER
[2017-09-07 15:25] VITALS: BP 127/72; PULSE 70; RESP 20; TEMP 36.4; O2SAT 98
--- NOTE | 2017-09-07 16:14 | CASEMGMT ---
Insurance Continued stay approved with next update due on 09/10/17. Auth#[id number] Frannie BETHEA, TUB PULLER
[2017-09-07] MEDS: Tamsulosin HCl 0.4 MG Capsule PO (17:49)
[2017-09-07] MEDS: Atorvastatin Calcium 40 MG Tablet PO (20:23)
[2017-09-07] MEDS: MELATONIN 3 MG TABLET PO (20:23)
[2017-09-08 07:15] LABS: Bedside Glucose 79 mg/dL (70-110)
[2017-09-08] MEDS: Polyethylene Glycol 3350 17 GM PACKET PO (09:33)
[2017-09-08] MEDS: Gabapentin 100 MG Capsule PO ×3 (09:33→18:45)
[2017-09-08] MEDS: Venlafaxine HCl 75 MG Tablet PO ×3 (09:33→18:46)
[2017-09-08] MEDS: Senna/Docusate Sodium 1 Tablet PO (09:33)
[2017-09-08] MEDS: guaiFENesin 600 MG Tablet PO ×2 (09:33→18:45)
[2017-09-08] MEDS: Pantoprazole Sodium 40 MG Tablet PO (09:33)
[2017-09-08] MEDS: Clopidogrel Bisulfate 75 MG Tablet PO (09:33)
[2017-09-08] MEDS: APIXABAN 5 MG TABLET PO ×2 (09:34→18:45)
[2017-09-08] MEDS: Iron Polysaccharide Complex 150 MG CAPSULE PO (09:34)
[2017-09-08] MEDS: Furosemide 20 MG Tablet PO (09:34)
[2017-09-08] MEDS: Menthol/Lanolin/Calamine/Znox 113 GM Tube 1 APPLIC TOPICAL ×2 (09:36→20:14)
[2017-09-08 15:41] VITALS: BP 110/60; PULSE 62; RESP 20; TEMP 36.7; O2SAT 99
[2017-09-08] MEDS: Tamsulosin HCl 0.4 MG Capsule PO (18:45)
[2017-09-08] MEDS: Atorvastatin Calcium 40 MG Tablet PO (20:13)
[2017-09-08] MEDS: MELATONIN 3 MG TABLET PO (20:24)
[2017-09-09 06:46] LABS: Bedside Glucose 80 mg/dL (70-110)
[2017-09-09] MEDS: Furosemide 20 MG Tablet PO (08:28)
[2017-09-09] MEDS: Clopidogrel Bisulfate 75 MG Tablet PO (08:28)
[2017-09-09] MEDS: Pantoprazole Sodium 40 MG Tablet PO (08:28)
[2017-09-09] MEDS: Gabapentin 100 MG Capsule PO ×3 (08:28→17:24)
[2017-09-09] MEDS: guaiFENesin 600 MG Tablet PO ×2 (08:28→17:25)
[2017-09-09] MEDS: Polyethylene Glycol 3350 17 GM PACKET PO (08:28)
[2017-09-09] MEDS: Venlafaxine HCl 75 MG Tablet PO ×3 (08:28→17:25)
[2017-09-09] MEDS: APIXABAN 5 MG TABLET PO ×2 (08:30→17:24)
[2017-09-09] MEDS: Iron Polysaccharide Complex 150 MG CAPSULE PO (08:30)
[2017-09-09] MEDS: Menthol/Lanolin/Calamine/Znox 113 GM Tube 1 APPLIC TOPICAL ×2 (08:31→20:34)
[2017-09-09 15:26] LABS: Bedside Glucose 115 mg/dL (70-110)
[2017-09-09 15:41] VITALS: BP 80/49; PULSE 70; RESP 16; TEMP 37; O2SAT 94
[2017-09-09] MEDS: Tamsulosin HCl 0.4 MG Capsule PO (17:25)
[2017-09-09 20:18] VITALS: PULSE 74; RESP 18
[2017-09-09] MEDS: Atorvastatin Calcium 40 MG Tablet PO (20:34)
[2017-09-09] MEDS: MELATONIN 3 MG TABLET PO (20:34)
[2017-09-10 07:01] LABS: Bedside Glucose 102 mg/dL (70-110)
[2017-09-10] MEDS: Venlafaxine HCl 75 MG Tablet PO ×3 (08:02→18:05)
[2017-09-10] MEDS: guaiFENesin 600 MG Tablet PO ×2 (08:02→18:05)
[2017-09-10] MEDS: Pantoprazole Sodium 40 MG Tablet PO (08:02)
[2017-09-10] MEDS: Furosemide 20 MG Tablet PO (08:02)
[2017-09-10] MEDS: APIXABAN 5 MG TABLET PO ×2 (08:03→18:05)
[2017-09-10] MEDS: Menthol/Lanolin/Calamine/Znox 113 GM Tube 1 APPLIC TOPICAL ×2 (08:03→21:04)
[2017-09-10] MEDS: Gabapentin 100 MG Capsule PO ×3 (08:03→18:05)
[2017-09-10] MEDS: Clopidogrel Bisulfate 75 MG Tablet PO (08:03)
[2017-09-10] MEDS: Iron Polysaccharide Complex 150 MG CAPSULE PO (08:03)
[2017-09-10 10:00] VITALS: PULSE 71; RESP 20; O2SAT 20
--- NOTE | 2017-09-10 12:03 | CASEMGMT ---
Insurance Clinical information faxed. Pending continued stay approval at this time. Auth#[id number] Frannie BETHEA, COLORIST
--- NOTE | 2017-09-10 15:03 | CASEMGMT ---
Insurance Continued stay approved with next update due on 09/13/17. Auth#[id number] Frannie BETHEA, COMPLEX MANAGER
[2017-09-10 15:25] VITALS: BP 123/73; PULSE 71; RESP 20; TEMP 36.5; O2SAT 98
[2017-09-10] MEDS: Tamsulosin HCl 0.4 MG Capsule PO (18:06)
[2017-09-10] MEDS: Atorvastatin Calcium 40 MG Tablet PO (21:05)
[2017-09-10] MEDS: MELATONIN 3 MG TABLET PO (21:05)
[2017-09-11 06:45] LABS: Bedside Glucose 93 mg/dL (70-110)
[2017-09-11 06:59] LABS: Absolute Lymphocyte Count 0.82 X10^3/ul (0.83-4.51); Basophil# 0.01 X10^3/uL; Basophil% 0.3 % (0-1); Eosinophil# 0.04 X10^3/uL; Hematocrit 35.5 % (40-54); Hemoglobin 10.9 g/dl (13.0-16.5); Lymphocyte # 0.82 X10^3/ul (4.0); Lymphocyte % 21.1 % (19-41); Mean Corp Hgb Conc 30.7 g/gl (32-36); Mean Corpuscular Volume 94.4 fL (80-94); Mean Platelet Vol. 9.3 fl (6.2-12.0); Monocyte# 0.97 X10^3/uL; Neutrophil # 2.03 X10^3/uL (2.7-7.7); Neutrophil % 52.3 % (47-70); Platelet Count 104 K/mm3 (150-450); RBC Distribution Width CV 15.4 % (11.6-14.6); RBC Distribution Width SD 51.4 fl (35.1-43.9); Red Blood Count 3.76 M/mm3 (4.6-6.2); White Blood Count 3.9 K/mm3 (4.4-11.0)
[2017-09-11 07:07] LABS: POSITIVE COUNT NO; POSITIVE DIFFERENTIAL NO; POSITIVE MORPHOLOGY NO
[2017-09-11 07:14] LABS: Anion Gap 8 (5-15); BUN 34 mg/dL (7-18); BUN/Creat Ratio 24.8 RATIO (10-20); Calcium,Total 8.5 mg/dL (8.5-10.1); Chloride 101 mmol/L (98-107); Creatinine, Serum 1.37 mg/dL (0.70-1.30); EST Glomerular Filtration Rate 53 mL/min (>60); Est Glom Filt Rate - Afr Amer 64 mL/min (>60); Estimated Creatinine Clearance 42.92 ml/min; Glucose 91 mg/dL (74-106); Potassium 4.1 mmol/L (3.5-5.1); Sodium Level 139 mmol/L (136-145)
[2017-09-11] MEDS: Gabapentin 100 MG Capsule PO ×3 (08:33→17:07)
[2017-09-11] MEDS: guaiFENesin 600 MG Tablet PO ×2 (08:33→17:04)
[2017-09-11] MEDS: Furosemide 20 MG Tablet PO (08:33)
[2017-09-11] MEDS: Pantoprazole Sodium 40 MG Tablet PO (08:33)
[2017-09-11] MEDS: Venlafaxine HCl 75 MG Tablet PO ×3 (08:33→17:04)
[2017-09-11] MEDS: Clopidogrel Bisulfate 75 MG Tablet PO (08:33)
[2017-09-11] MEDS: Iron Polysaccharide Complex 150 MG CAPSULE PO (08:33)
[2017-09-11] MEDS: APIXABAN 5 MG TABLET PO ×2 (08:33→17:06)
[2017-09-11] MEDS: Menthol/Lanolin/Calamine/Znox 113 GM Tube 1 APPLIC TOPICAL (08:44)
--- NOTE | 2017-09-11 09:14 | NURSING ---
Dr. Benson reviewed AM labs, NNO
[2017-09-11 15:29] VITALS: BP 104/59; PULSE 70; RESP 20; TEMP 36.1; O2SAT 99
[2017-09-11] MEDS: Tamsulosin HCl 0.4 MG Capsule PO (17:08)
[2017-09-11 20:00] VITALS: PULSE 68; RESP 18; O2SAT 95
[2017-09-12 06:41] LABS: Bedside Glucose 61 mg/dL (70-110)
[2017-09-12 06:41] LABS: Bedside Glucose 64 mg/dL (70-110)
[2017-09-12 07:16] LABS: Bedside Glucose 81 mg/dL (70-110)
[2017-09-12] MEDS: Pantoprazole Sodium 40 MG Tablet PO (08:06)
[2017-09-12] MEDS: Furosemide 20 MG Tablet PO (08:07)
[2017-09-12] MEDS: APIXABAN 5 MG TABLET PO ×2 (08:07→18:43)
[2017-09-12] MEDS: Venlafaxine HCl 75 MG Tablet PO ×3 (08:07→18:44)
[2017-09-12] MEDS: Iron Polysaccharide Complex 150 MG CAPSULE PO (08:07)
[2017-09-12] MEDS: Gabapentin 100 MG Capsule PO ×3 (08:07→18:44)
[2017-09-12] MEDS: Clopidogrel Bisulfate 75 MG Tablet PO (08:07)
[2017-09-12] MEDS: guaiFENesin 600 MG Tablet PO ×2 (08:07→18:44)
[2017-09-12] MEDS: Senna/Docusate Sodium 1 Tablet PO ×2 (08:08→18:44)
[2017-09-12] MEDS: Menthol/Lanolin/Calamine/Znox 113 GM Tube 1 APPLIC TOPICAL ×2 (08:13→20:49)
[2017-09-12 15:41] VITALS: BP 102/54; PULSE 70; RESP 18; TEMP 37.1; O2SAT 96
[2017-09-12] MEDS: Tamsulosin HCl 0.4 MG Capsule PO (18:46)
[2017-09-12] MEDS: MELATONIN 3 MG TABLET PO (20:49)
[2017-09-12] MEDS: Atorvastatin Calcium 40 MG Tablet PO (20:49)
[2017-09-12 21:00] VITALS: PULSE 68; RESP 18; O2SAT 96
[2017-09-13 06:41] LABS: Bedside Glucose 69 mg/dL (70-110)
[2017-09-13 07:16] LABS: Bedside Glucose 90 mg/dL (70-110)
[2017-09-13] MEDS: Furosemide 20 MG Tablet PO (07:50)
[2017-09-13] MEDS: Pantoprazole Sodium 40 MG Tablet PO (07:50)
[2017-09-13] MEDS: Senna/Docusate Sodium 1 Tablet PO ×2 (07:50→17:32)
[2017-09-13] MEDS: Clopidogrel Bisulfate 75 MG Tablet PO (07:50)
[2017-09-13] MEDS: APIXABAN 5 MG TABLET PO ×2 (07:51→17:31)
[2017-09-13] MEDS: Iron Polysaccharide Complex 150 MG CAPSULE PO (07:51)
[2017-09-13] MEDS: Venlafaxine HCl 75 MG Tablet PO ×3 (07:51→17:31)
[2017-09-13] MEDS: guaiFENesin 600 MG Tablet PO ×2 (07:51→17:31)
[2017-09-13] MEDS: Gabapentin 100 MG Capsule PO ×3 (07:51→17:31)
[2017-09-13] MEDS: Menthol/Lanolin/Calamine/Znox 113 GM Tube 1 APPLIC TOPICAL ×2 (07:52→21:30)
--- NOTE | 2017-09-13 14:02 | CASEMGMT ---
Insurance Clinical information faxed. Pending continued stay approval at this time. Auth#[id number] Frannie BETHEA, HOST HOSTESS
--- NOTE | 2017-09-13 15:04 | CASEMGMT ---
Insurance Continued stay denied, last cover day is 09/15/17 with a discharge on or resident financial responsibility to begin on 09/16/17. Auth#[id number] Frannie BETHEA, TERRITORY DEVELOPMENT MANAGER
[2017-09-13 15:42] VITALS: BP 101/59; PULSE 72; RESP 16; TEMP 36.7; O2SAT 93
--- NOTE | 2017-09-13 16:38 | CASEMGMT ---
Social Work Spoke with resident and resident spouse. This social sciences instructor communicating that continued stay has been denied with last cover day being 09/15/17 and resident to discharge or financial responsibility to begin on 09/16/17. Resident choosing to discharge on 09/16/17 to home with spouse. This social sciences instructor communicating to resident and resident spouse that currently recommendation would be for resident to transition to an extended care facility. Resident and resident spouse voicing understanding but choosing for resident to transition home with spouse at this time. Resident is open to home health services for physical and occupational therapy as well as a home health aide. Resident requesting for home health services to be set up through [facility]. Will continue to follow. Proposed discharge date: 09/16/17 PLAN: Discharge home with spouse and home health services. Frannie BETHEA, GEOSCIENCES ASSOCIATE PROFESSOR
[2017-09-13] MEDS: Tamsulosin HCl 0.4 MG Capsule PO (17:31)
--- NOTE | 2017-09-13 19:38 | PCM.DC ---
- Discharge Diagnoses Current Active Problems: Current Active and Chronic Problems (Last Updated 09/04/17 @ 10:47 by Elsa Fernandes) Fall (Acute) Closed head injury (Acute) BPH (benign prostatic hyperplasia) (Chronic) You will use the following diet at home:: No restrictions, Regular Your food should be the consistency of: Regular Your liquids should be the consistency of: Regular/Thin Discharge Activity: Return to Normal Activity, May Shower, Use Walker Weight Bearing Status: Weight bearing as tolerated Call your doctor if you observe: Fever of 101 or Higher, Inability to urinate, Inability to have a bowel movement, Shortness of breath, Chest pain, Uncontrolled pain Allergies/Adverse Reactions: Allergies morphine Allergy (Verified 03/17/17 06:51) Rash Medications to take at Discharge Tamsulosin HCl [Flomax] 0.4 mg PO DAILY 10/21/16 Venlafaxine XR [Effexor Xr] 75 mg PO TID 10/21/16 Acetaminophen [Tylenol] 1,000 mg PO Q8H PRN PRN tab 12/12/16 Apixaban [Eliquis] 5 mg PO BID #60 tab 09/13/17 Atorvastatin Calcium [Lipitor] 40 mg PO 1999 tablet 09/13/17 Clopidogrel Bisulfate [Plavix] 75 mg PO DAILY@0800 #30 tab 09/13/17 Ergocalciferol [Vitamin D] 50,000 unit PO Q7D capsule 09/13/17 Furosemide [Lasix] 20 mg PO DAILY@0800 tablet 09/13/17 Gabapentin [Neurontin] 100 mg PO TIDCM #90 cap 09/13/17 Guaifenesin [Mucinex] 600 mg PO BID@0800,1800 tablet 09/13/17 Iron Polysaccharide Complex [Ferrex 150] 150 mg PO DAILYCM #30 cap 09/13/17 Melatonin 3 mg PO 1999 tablet 09/13/17 Menthol/Lanolin/Calamine/Znox [Calmoseptine Ointment] 1 applic TOPICAL 0800,1999 tube 09/13/17 Pantoprazole Sodium [Protonix] 40 mg PO DAILY@0800 #30 tab 09/13/17 Sodium Chloride 0.65% [[place] Nasal [place]] 1 spray NASAL BID PRN PRN spray.btl 09/13/17 The following prescriptions were given: Clopidogrel Bisulfate [Plavix] 75 mg PO DAILY@0800 #30 tab Iron Polysaccharide Complex [Ferrex 150] 150 mg PO DAILYCM #30 cap Pantoprazole Sodium [Protonix] 40 mg PO DAILY@0800 #30 tab Apixaban [Eliquis] 5 mg PO BID #60 tab Gabapentin [Neurontin] 100 mg PO TIDCM #90 cap Primary Care Physician: Tavares Yao MD [Primary Care Provider] - Please follow up with your Primary Care Physician in: 1 week. Test Results: Test results from this visit will be discussed in further detail at your follow-up appointment, if applicable. Please Follow Up With: Narciso Bah MD When: 2 weeks. Please Follow Up With: Veronica Bush RN When: 2 weeks. Proposed Discharge Date: 09/16/17
--- NOTE | 2017-09-13 19:40 | PCM.DC.SUM ---
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) Acute on chronic systolic (congestive) heart failure (Chronic) History of coronary artery stent placement (Chronic) AYSHA-Mid LAD, AYSHA- Prox RCA, Mid RCA and Distal RCA 04/2017 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 Type 2 diabetes mellitus without complications (Chronic) Chronic atrial flutter (Chronic) Ischemic cardiomyopathy (Chronic) Non-rheumatic aortic stenosis (Chronic) Paroxysmal atrial fibrillation (Chronic) Secondary pulmonary arterial hypertension (Chronic) Atherosclerosis of coronary artery of [place] heart without angina pectoris (Chronic) BPH (benign prostatic hyperplasia) (Chronic) Dyspnea on exertion (Chronic) Nonrheumatic mitral valve insufficiency (Chronic) Dysphagia (Chronic) Carotid artery stenosis (Chronic) Right hemiparesis (Chronic) Depression (Chronic) Hyperlipidemia (Chronic) Urinary retention due to benign prostatic hyperplasia (Chronic) Bladder cancer (Chronic) Hospital Course and Treatment Imaging Results: 08/20/17 21:47 Diet: Cardiac/Low Cholesterol Clinical Impression(s) from Imaging Studies Ankle X-Ray 08/25/17 18:13 IMPRESSION: No fracture or dislocation. Mild lateral soft tissue swelling. Electronically Signed: Hill Palmer DO at 22:22 EDT , Service support , Foot X-Ray 08/25/17 18:13 IMPRESSION: Normal x-ray examination of the foot. Electronically Signed: Hill Palmer DO at 19:41 EDT , Service support , Knee X-Ray 08/26/17 13:45 IMPRESSION: Status post total right knee replacement changes. There is no evidence of implant loosening, fracture, or dislocation. 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 Vascular calcifications are noted. Electronically Signed: Aneesh Freire MD at 16:54 EDT , Service support , Labs (Last 48 Hours) 09/12/17 09/12/17 09/12/17 06:17 06:33 07:10 POC Glucose 64 L 61 L 81 09/13/17 09/13/17 06:27 07:10 POC Glucose 69 L 90 Operations: None Procedures: None Summary of Care Provided: The patient is a 82 year old Male with below past medical history hospitalized for fall, closed head injury, admitted to TCU with debility, here for rehabilitation, strengthening, prior to discharge home with spouse. Discharged home with spouse, and Home Health services. Resident declined extended care nursing facility. Discharge Diet: No Restrictions Discharge Activity: Return to Normal Activity, May Shower, Use Walker Weight Bearing Status: Weight bearing as tolerated Call your doctor if you observe: Fever of 101 or Higher, Inability to urinate, Inability to have a bowel movement, Shortness of breath, Chest pain, Uncontrolled pain Home Medications: Medications to take at Discharge Tamsulosin HCl [Flomax] 0.4 mg PO DAILY 10/21/16 Venlafaxine XR [Effexor Xr] 75 mg PO TID 10/21/16 Acetaminophen [Tylenol] 1,000 mg PO Q8H PRN PRN tab 12/12/16 Apixaban [Eliquis] 5 mg PO BID #60 tab 09/13/17 Atorvastatin Calcium [Lipitor] 40 mg PO 2000 tablet 09/13/17 Clopidogrel Bisulfate [Plavix] 75 mg PO DAILY@0800 #30 tab 09/13/17 Ergocalciferol [Vitamin D] 50,000 unit PO Q7D capsule 09/13/17 Furosemide [Lasix] 20 mg PO DAILY@0800 tablet 09/13/17 Gabapentin [Neurontin] 100 mg PO TIDCM #90 cap 09/13/17 Guaifenesin [Mucinex] 600 mg PO BID@0800,1800 tablet 09/13/17 Iron Polysaccharide Complex [Ferrex 150] 150 mg PO DAILYCM #30 cap 09/13/17 Melatonin 3 mg PO 2000 tablet 09/13/17 Menthol/Lanolin/Calamine/Znox [Calmoseptine Ointment] 1 applic TOPICAL 0800,1999 tube 09/13/17 Pantoprazole Sodium [Protonix] 40 mg PO DAILY@0800 #30 tab 09/13/17 Sodium Chloride 0.65% [[place] Nasal [place]] 1 spray NASAL BID PRN PRN spray.btl 09/13/17 Following Prescrptions Were Given to Patient: Clopidogrel Bisulfate [Plavix] 75 mg PO DAILY@0800 #30 tab Iron Polysaccharide Complex [Ferrex 150] 150 mg PO DAILYCM #30 cap Pantoprazole Sodium [Protonix] 40 mg PO DAILY@0800 #30 tab Apixaban [Eliquis] 5 mg PO BID #60 tab Gabapentin [Neurontin] 100 mg PO TIDCM #90 cap Primary Care Physician: Tavares Yao MD [Primary Care Provider] - Please follow up with your Primary Care Physician in: 1 week. Please Follow Up With: Narciso Bah MD When: 2 weeks. Please Follow Up With: Veronica Bush RN When: 2 weeks. Disposition: Home with Home Health Minutes spent on discharge:: 35 Patient Condition:: Stable Medical Necessity - Tobacco Use Smoking Status: Never smoker Tobacco Use: Non-smoker Meaningful Use Info Meaningful Use Diagnoses (Choose all that apply): None applicable
--- NOTE | 2017-09-13 19:43 | DS.PCM_ITS ---
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) Acute on chronic systolic (congestive) heart failure (Chronic) History of coronary artery stent placement (Chronic) AYSHA-Mid LAD, AYSHA- Prox RCA, Mid RCA and Distal RCA 04/2017 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 Type 2 diabetes mellitus without complications (Chronic) Chronic atrial flutter (Chronic) Ischemic cardiomyopathy (Chronic) Non-rheumatic aortic stenosis (Chronic) Paroxysmal atrial fibrillation (Chronic) Secondary pulmonary arterial hypertension (Chronic) Atherosclerosis of coronary artery of [place] heart without angina pectoris ( Chronic) BPH (benign prostatic hyperplasia) (Chronic) Dyspnea on exertion (Chronic) Nonrheumatic mitral valve insufficiency (Chronic) Dysphagia (Chronic) Carotid artery stenosis (Chronic) Right hemiparesis (Chronic) Depression (Chronic) Hyperlipidemia (Chronic) Urinary retention due to benign prostatic hyperplasia (Chronic) Bladder cancer (Chronic) Hospital Course and Treatment Imaging Results: 08/20/17 21:47 Diet: Cardiac/Low Cholesterol Clinical Impression(s) from Imaging Studies Ankle X-Ray 08/25/17 18:13 IMPRESSION: No fracture or dislocation. Mild lateral soft tissue swelling. Electronically Signed: Hill Palmer DO at 22:22 EDT , Service support , Foot X-Ray 08/25/17 18:13 IMPRESSION: Normal x-ray examination of the foot. Electronically Signed: Hill Palmer DO at 19:41 EDT , Service support , Knee X-Ray 08/26/17 13:45 IMPRESSION: Status post total right knee replacement changes. There is no evidence of implant loosening, fracture, or dislocation. 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 Vascular calcifications are noted. Electronically Signed: Aneesh Freire MD at 16:54 EDT , Service support , Labs (Last 48 Hours) 09/12/17 09/12/17 09/12/17 06:17 06:33 07:10 POC Glucose 64 L 61 L 81 09/13/17 09/13/17 06:27 07:10 POC Glucose 69 L 90 Operations: None Procedures: None Summary of Care Provided: The patient is a 82 year old Male with below past medical history hospitalized for fall, closed head injury, admitted to TCU with debility, here for rehabilitation, strengthening, prior to discharge home with spouse. Discharged home with spouse, and Home Health services. Resident declined extended care nursing facility. Discharge Diet: No Restrictions Discharge Activity: Return to Normal Activity, May Shower, Use Walker Weight Bearing Status: Weight bearing as tolerated Call your doctor if you observe: Fever of 101 or Higher, Inability to urinate, Inability to have a bowel movement, Shortness of breath, Chest pain, Uncontrolled pain Home Medications: Medications to take at Discharge Tamsulosin HCl [Flomax] 0.4 mg PO DAILY 10/21/16 Venlafaxine XR [Effexor Xr] 75 mg PO TID 10/21/16 Acetaminophen [Tylenol] 1,000 mg PO Q8H PRN PRN tab 12/12/16 Apixaban [Eliquis] 5 mg PO BID #60 tab 09/13/17 Atorvastatin Calcium [Lipitor] 40 mg PO 2000 tablet 09/13/17 Clopidogrel Bisulfate [Plavix] 75 mg PO DAILY@0800 #30 tab 09/13/17 Ergocalciferol [Vitamin D] 50,000 unit PO Q7D capsule 09/13/17 Furosemide [Lasix] 20 mg PO DAILY@0800 tablet 09/13/17 Gabapentin [Neurontin] 100 mg PO TIDCM #90 cap 09/13/17 Guaifenesin [Mucinex] 600 mg PO BID@0800,1800 tablet 09/13/17 Iron Polysaccharide Complex [Ferrex 150] 150 mg PO DAILYCM #30 cap 09/13/17 Melatonin 3 mg PO 2000 tablet 09/13/17 Menthol/Lanolin/Calamine/Znox [Calmoseptine Ointment] 1 applic TOPICAL 0800, 1999 tube 09/13/17 Pantoprazole Sodium [Protonix] 40 mg PO DAILY@0800 #30 tab 09/13/17 Sodium Chloride 0.65% [[place] Nasal [place]] 1 spray NASAL BID PRN PRN spray.btl 09/13/17 Following Prescrptions Were Given to Patient: Clopidogrel Bisulfate [Plavix] 75 mg PO DAILY@0800 #30 tab Iron Polysaccharide Complex [Ferrex 150] 150 mg PO DAILYCM #30 cap Pantoprazole Sodium [Protonix] 40 mg PO DAILY@0800 #30 tab Apixaban [Eliquis] 5 mg PO BID #60 tab Gabapentin [Neurontin] 100 mg PO TIDCM #90 cap Primary Care Physician: Tavares Yao MD [Primary Care Provider] - Please follow up with your Primary Care Physician in: 1 week. Please Follow Up With: Narciso Bah MD When: 2 weeks. Please Follow Up With: Veronica Bush RN When: 2 weeks. Disposition: Home with Home Health Minutes spent on discharge:: 35 Patient Condition:: Stable Medical Necessity - Tobacco Use Smoking Status: Never smoker Tobacco Use: Non-smoker Meaningful Use Info Meaningful Use Diagnoses (Choose all that apply): None applicable
--- NOTE | 2017-09-13 19:43 | HHNOTE_ITS ---
Home Health Note - Plan Overview of reason of hospitalization: The patient is a 82 year old Male with below past medical history hospitalized for fall, closed head injury, admitted to TCU with debility, here for rehabilitation, strengthening, prior to discharge home with spouse. Discharged home with spouse, and Home Health services. Resident declined extended care nursing facility. 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) Type 2 diabetes mellitus without complications (Chronic) Chronic atrial flutter (Chronic) Ischemic cardiomyopathy (Chronic) Non-rheumatic aortic stenosis (Chronic) Paroxysmal atrial fibrillation (Chronic) Secondary pulmonary arterial hypertension (Chronic) Atherosclerosis of coronary artery of [place] heart without angina pectoris ( Chronic) Fall (Acute) Closed head injury (Acute) BPH (benign prostatic hyperplasia) (Chronic) Dyspnea on exertion (Chronic) Nonrheumatic mitral valve insufficiency (Chronic) Dysphagia (Chronic) Carotid artery stenosis (Chronic) Right hemiparesis (Chronic) Depression (Chronic) Hyperlipidemia (Chronic) Urinary retention due to benign prostatic hyperplasia (Chronic) Bladder cancer (Chronic) - Requirements and Reasons Disciplines Needed/Ordered: Physical Therapy Reason for Disciplines: Gait Training, Stair Training, Fall Prevention, Home Safety/Equipment Instruction, Balance and/or Posture Training, Transfer Training Related To: Limited/Poor Endurance, Shortness of Breath with Activity, Physical Impairments, Unsteady Gait/Balance, Fall Risk Patient is unable to leave the home: Without Aid of Supportive Devices (crutches , cane, wheelchair, walker), Without the assistance of another person - Additional Disciplines Additional Disciplines Needed/Ordered: Occupational Therapy, Home Health Aide
[2017-09-13] MEDS: MELATONIN 3 MG TABLET PO (21:30)
[2017-09-13] MEDS: Atorvastatin Calcium 40 MG Tablet PO (21:30)
[2017-09-13 22:00] VITALS: PULSE 69; RESP 18; O2SAT 97
[2017-09-14 06:35] LABS: Bedside Glucose 80 mg/dL (70-110)
[2017-09-14] MEDS: Menthol/Lanolin/Calamine/Znox 113 GM Tube 1 APPLIC TOPICAL ×2 (08:06→21:19)
[2017-09-14] MEDS: Pantoprazole Sodium 40 MG Tablet PO (08:06)
[2017-09-14] MEDS: Clopidogrel Bisulfate 75 MG Tablet PO (08:06)
[2017-09-14] MEDS: Furosemide 20 MG Tablet PO (08:06)
[2017-09-14] MEDS: guaiFENesin 600 MG Tablet PO ×2 (08:06→17:37)
[2017-09-14] MEDS: Iron Polysaccharide Complex 150 MG CAPSULE PO (08:06)
[2017-09-14] MEDS: Senna/Docusate Sodium 1 Tablet PO ×2 (08:06→17:37)
[2017-09-14] MEDS: Gabapentin 100 MG Capsule PO ×3 (08:07→17:37)
[2017-09-14] MEDS: Venlafaxine HCl 75 MG Tablet PO ×3 (08:07→17:37)
[2017-09-14] MEDS: APIXABAN 5 MG TABLET PO ×2 (08:07→17:37)
[2017-09-14 09:49] VITALS: PULSE 69; RESP 18; O2SAT 98
--- NOTE | 2017-09-14 10:41 | CASEMGMT ---
Social Work Telephone call to [facility]. Referral made for physical and occupational therapy as well as home health aide. Order faxed along with supportive documentation. Spoke with resident and resident spouse. Resident reporting to have all needed durable medical equipment at this time. Resident spouse plans to provide transportation home for resident at time of discharge. Resident continues to decline extended care facility placement and plans to discharge home with spouse at time of discharge with home health services. Support given. Proposed discharge date: 09/16/17 PLAN: Discharge home with spouse and home health services. Frannie BETHEA, SOLAR PHOTOVOLTAIC DESIGNER
[2017-09-14 15:17] VITALS: BP 102/53; PULSE 70; RESP 16; TEMP 36.7; O2SAT 99
[2017-09-14] MEDS: Tamsulosin HCl 0.4 MG Capsule PO (17:37)
[2017-09-14] MEDS: MELATONIN 3 MG TABLET PO (21:20)
[2017-09-14] MEDS: Atorvastatin Calcium 40 MG Tablet PO (21:20)
[2017-09-15 06:50] LABS: Bedside Glucose 70 mg/dL (70-110)
[2017-09-15] MEDS: guaiFENesin 600 MG Tablet PO ×2 (08:02→16:46)
[2017-09-15] MEDS: Clopidogrel Bisulfate 75 MG Tablet PO (08:02)
[2017-09-15] MEDS: Senna/Docusate Sodium 1 Tablet PO (08:02)
[2017-09-15] MEDS: Furosemide 20 MG Tablet PO (08:02)
[2017-09-15] MEDS: Iron Polysaccharide Complex 150 MG CAPSULE PO (08:02)
[2017-09-15] MEDS: Menthol/Lanolin/Calamine/Znox 113 GM Tube 1 APPLIC TOPICAL ×2 (08:02→21:07)
[2017-09-15] MEDS: Pantoprazole Sodium 40 MG Tablet PO (08:02)
[2017-09-15] MEDS: Venlafaxine HCl 75 MG Tablet PO ×3 (08:02→16:46)
[2017-09-15] MEDS: APIXABAN 5 MG TABLET PO ×2 (08:02→16:46)
[2017-09-15] MEDS: Gabapentin 100 MG Capsule PO ×3 (08:02→16:46)
[2017-09-15 09:48] VITALS: PULSE 114; RESP 18; O2SAT 92
--- NOTE | 2017-09-15 15:10 | CASEMGMT ---
Social Work Therapy voicing to this psychotherapist social worker that family training did not go well today with resident and resident spouse and that resident was voicing to see why resident is not ready to return home yet. This psychotherapist social worker meeting with resident in room. This psychotherapist social worker broaching family training and inquiring how it went from resident perspective. Resident voicing that the family training did not go well and that resident is not ready to return home. This psychotherapist social worker then broaching topic of group home placement with resident again. Resident declining for this psychotherapist social worker to make a referral to a group home and is stating that resident will return home as insurance is not approving more time. Resident did state to be open to continue with stay on the Transitional Care Unit, but not able to afford private pay. Resident aware of concerns of resident returning home. Resident stating that if he falls he falls. Resident open to this socia worker contacting resident spouse, Ayah in regards to above information. Telephone call to Ayah Poon also voicing to be concerned about discharge home but to not be against resident coming home. Ayah voicing to be planning to waste picker resident around noon on 09/16/17. This psychotherapist social worker encouraging both resident and Ayah that if there is any change of mind about the group home this psychotherapist social worker can assist with placement. Support given. Will continue to follow as needed. Frannie BETHEA, DISTRIBUTION ACCOUNTING CLERK
[2017-09-15 15:26] VITALS: BP 108/60; PULSE 70; RESP 16; TEMP 36.5; O2SAT 100
[2017-09-15] MEDS: Tamsulosin HCl 0.4 MG Capsule PO (16:46)
[2017-09-15] MEDS: MELATONIN 3 MG TABLET PO (21:08)
[2017-09-15] MEDS: Atorvastatin Calcium 40 MG Tablet PO (21:08)
[2017-09-16 07:06] LABS: Bedside Glucose 97 mg/dL (70-110)
[2017-09-16] MEDS: Pantoprazole Sodium 40 MG Tablet PO (08:02)
[2017-09-16] MEDS: Gabapentin 100 MG Capsule PO ×2 (08:02→11:42)
[2017-09-16] MEDS: guaiFENesin 600 MG Tablet PO (08:02)
[2017-09-16] MEDS: Clopidogrel Bisulfate 75 MG Tablet PO (08:02)
[2017-09-16] MEDS: Furosemide 20 MG Tablet PO (08:03)
[2017-09-16] MEDS: Senna/Docusate Sodium 1 Tablet PO (08:03)
[2017-09-16] MEDS: APIXABAN 5 MG TABLET PO (08:03)
[2017-09-16] MEDS: Venlafaxine HCl 75 MG Tablet PO ×2 (08:03→11:43)
[2017-09-16] MEDS: Iron Polysaccharide Complex 150 MG CAPSULE PO (08:03)
[2017-09-16] MEDS: Menthol/Lanolin/Calamine/Znox 113 GM Tube 1 APPLIC TOPICAL (08:08)
[2017-09-16 09:05] VITALS: PULSE 70; RESP 16; O2SAT 96
[2017-09-16 12:25] VITALS: BP 104/56; PULSE 70; RESP 18; TEMP 36.3; O2SAT 98
--- NOTE | 2017-09-16 16:44 | CASEMGMT ---
Insurance Notified insurance of resident discharge to home on 09/16/17 with spouse and home health services. Auth#[id number] Frannie BETHEA, [employer]
--- NOTE | 2017-12-15 15:54 | CASEMGMT ---
Insurance Notified insurance of resident discharge to home with spouse on this day. Auth#[id number] Frannie BETHEA, HYDROTREATER OPERATOR
== END 2017-09-16 12:31 | disposition home health service (06) | DRG 949 ==
PROVIDERS: Admitting Provider Family Medicine Geriatric Medicine; Family Provider Family Medicine; PCP Family Medicine; Visit Provider Family Medicine Geriatric Medicine
DX: S09.8XXD Other specified injuries of head, subsequent encounter (principal); I50.23 Acute on chronic systolic (congestive) heart failure; G81.91 Hemiplegia, unspecified affecting right dominant side; W19.XXXD Unspecified fall, subsequent encounter; F32.9 Major depressive disorder, single episode, unspecified; K21.9 Gastro-esophageal reflux disease without esophagitis; E11.9 Type 2 diabetes mellitus without complications; D50.9 Iron deficiency anemia, unspecified; E55.9 Vitamin D deficiency, unspecified; I25.10 Atherosclerotic heart disease of native coronary artery without angina pectoris; E78.5 Hyperlipidemia, unspecified; I48.2 Chronic atrial fibrillation; N40.1 Benign prostatic hyperplasia with lower urinary tract symptoms; R33.8 Other retention of urine; Z85.51 Personal history of malignant neoplasm of bladder; I27.21 Secondary pulmonary arterial hypertension
CPT/HCPCS: 36415; 73564; 73610; 73630; 80048; 82962; 85025; 92507; 92526; 92610; 97110; 97116; 97163; 97166; 97530; 97535; 97802

== ENCOUNTER → 2017-08-29 16:48 | Outpatient (CLI) | payer MEDICARE, SELFPAY ==
--- NOTE | 2017-08-29 16:55 | CT_ITS ---
STUDY: CT RIGHT KNEE WITHOUT CONTRAST REASON FOR EXAM: Male, 82 years old. Pain. RADIATION DOSAGE (If Supplied By Facility): CTDIvol = ( 15.57 ) mGy, DLP = ( 496.16 ) mGycm TECHNIQUE: Transaxial CT imaging of the knee was performed. Coronal and sagittal images were reformatted. COMPARISON: Radiographs 08/26/2017. FINDINGS: This exam is markedly limited by metal artifact from total knee arthroplasty. No gross dislocation of the tibial or femoral prostheses. No gross loosening. Normal alignment. No gross acute fracture. Patella is in normal position. Moderate effusion. Severe diffuse atrophy of the soft tissues. Heavily calcified vascular structures. CT/Extremity Lower without Contra IMPRESSION: Extremely limited from metal artifact. No gross acute fracture, dislocation, or complication of the knee arthroplasty. Moderate effusion. Electronically Signed: Linwood Avila MD at 18:56 EDT , Service support ,
== END ==
PROVIDERS: Family Provider Family Medicine; PCP Family Medicine; Visit Provider Family Medicine Geriatric Medicine
DX: M25.561 Pain in right knee (principal)
CPT/HCPCS: 73700

== ENCOUNTER 2017-12-02 17:20 | Inpatient (IN) | payer MEDICARE, SELFPAY ==
--- NOTE | 2017-12-02 17:41 | NURSING ---
R' ARRIVE TO UNIT AT 1720 FROM [facility] VIA COT.
[2017-12-02 17:42] VITALS: BMI 28.1
[2017-12-02 17:46] VITALS: BP 124/71; PULSE 70; RESP 16; TEMP 36.9; O2SAT 98
[2017-12-02 17:47] VITALS: BP 124/71; PULSE 70; RESP 16; TEMP 36.9; O2SAT 98
[2017-12-02 17:48] VITALS: BMI 28.0
--- NOTE | 2017-12-02 19:47 | PCM.HP.STD ---
Problem List (1) Sepsis Status: Acute (2) Urinary tract infection Status: Acute (3) Coronary artery disease Status: Chronic (4) Stroke Status: Chronic (5) Atrial fibrillation Status: Chronic (6) Diabetes mellitus Status: Chronic (7) Right hemiplegia Status: Chronic (8) Fall Status: Acute (9) BPH (benign prostatic hyperplasia) Status: Chronic (10) Carotid artery stenosis Status: Chronic (11) Depression Status: Chronic (12) Hyperlipidemia Status: Chronic (13) Bladder cancer Status: Chronic Qualifiers: History of Present Illness Date of Admission: 12/02/17 Chief Complaint: Here for rehabilitation, strengthening, prior to discharge home with spouse. The patient is a 82 year old Male with below past medical history hospitalized after a fall. He was admitted to [facility] and treated appropriately for sepsis, urinary tract infection. Sepsis resolved. 12/02/2017 Admit to TCU with debility, here for rehabilitation, strengthening, prior to discharge home with spouse. 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 Jeremy Maloney and Dr. Narciso Pickens, [facility] Type 2 diabetes mellitus without complications (Chronic) Chronic atrial flutter (Chronic) Ischemic cardiomyopathy (Chronic) EF 23% per echo 08/03/17 [facility] Non-rheumatic aortic stenosis (Chronic) Paroxysmal atrial fibrillation (Chronic) Secondary pulmonary arterial hypertension (Chronic) Atherosclerosis of coronary artery of [place] heart without angina pectoris (Chronic) BPH (benign prostatic hyperplasia) (Chronic) Dyspnea on exertion (Chronic) Nonrheumatic mitral valve insufficiency (Chronic) 2+ regurgitation per echo 08/03/17 done @ [facility] Dysphagia (Chronic) Carotid artery stenosis (Chronic) Right hemiparesis (Chronic) Depression (Chronic) Hyperlipidemia (Chronic) Urinary retention due to benign prostatic hyperplasia (Chronic) Bladder cancer (Chronic) Medical History: Medical History (Last Updated 09/23/17 @ 10:02 by Rica Morfin) 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) I63.10 Acute on chronic systolic (congestive) heart failure (Chronic) I50.23 Complete heart block (Acute) I44.2 Type 2 diabetes mellitus without complications (Chronic) E11.9 Chronic atrial flutter (Chronic) I48.92 Ischemic cardiomyopathy (Chronic) I25.5 EF 23% per echo 08/03/17 done @ [facility] Non-rheumatic aortic stenosis (Chronic) I35.0 Paroxysmal atrial fibrillation (Chronic) I48.0 Secondary pulmonary arterial hypertension (Chronic) I27.21 Atherosclerosis of coronary artery of [place] heart without angina pectoris (Chronic) I25.10 BPH (benign prostatic hyperplasia) (Chronic) N40.0 Nonrheumatic mitral valve insufficiency (Chronic) I34.0 2+ regurgitation per echo 08/03/17 done @ [facility] Dysphagia (Chronic) R13.10 Carotid artery stenosis (Chronic) I65.29 Right hemiparesis (Chronic) G81.91 Depression (Chronic) F32.9 Hyperlipidemia (Chronic) E78.5 Urinary retention due to benign prostatic hyperplasia (Chronic) N40.1, R33.8 Bladder cancer (Chronic) C67.9 Ventricular tachycardia I47.2 Acute embolic stroke (Resolved) I63.9 Allergies morphine Adverse Reaction (Intermediate, Verified 09/23/17 09:56) Nausea and vomiting Home Medications: Ambulatory Orders Medication Instructions Recorded Tamsulosin HCl [Flomax] 0.4 mg PO DAILY 10/21/16 Apixaban [Eliquis] 5 mg PO BID #60 tab 09/13/17 atorvastatin 40 mg tablet 80 mg PO QHS tab 09/23/17 metformin 500 mg tablet 500 mg PO BID tab 09/23/17 venlafaxine 75 mg tablet 150 mg PO DAILY 09/23/17 Acetaminophen [Tylenol] 325 mg PO Q6H PRN PRN 12/02/17 Ascorbic Acid [Vitamin C] 500 mg PO DAILY@0800 12/02/17 Ciprofloxacin HCl 500 mg PO BID 12/02/17 Cyanocobalamin (Vitamin B-12) 500 mcg PO DAILY 12/02/17 [Vitamin B-12] Surgical History: Surgical History (Last Updated 09/23/17 @ 10:22 by Rica Morfin) Cardiac resynchronization therapy defibrillator (AUTO APPRENTICE MECHANIC-D) in place (Acute) Onset Date: 07/06/[address] Jerez @ [facility] History of coronary artery stent placement (Chronic) Onset Date: 04/09/17 Z95.5 Atherectomy,AYSHA-Mid LAD, AYSHA- Prox RCA, Mid RCA and Distal RCA 04/2017 S/P TAVR (transcatheter aortic valve replacement) (Chronic) Onset Date: 06/28/17 Z95.2 bioprosthetic: 29 mm Jacque [address] Jeremy Maloney and Dr. Narciso Pickens, [facility] Surgical History: total knee arthroplasty - Bilateral., - - 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 Psychiatric History: Depression Lives: Spouse/ Significant Other Smoking Status: Never smoker Tobacco Use: Non-smoker Alcohol: None Drugs: None - *Family History Maternal Family History: Family History (Last Updated 09/23/17 @ 09:55 by Rica Morfin) Mother Cancer Father CAD (coronary artery disease) Brother Cancer History Items: No pertinent history Review of Systems Constitutional: Denies: Chills, Fever, Weight Change HEENT: Denies: Head Aches, Sinus Congestion, Sinus Drainage Cardiovascular: Denies: Chest Pain, Palpitations Respiratory: Denies: Cough, Shortness of breath at rest, Sputum production Gastrointestinal: Denies: Abdominal Pain, Nausea, Vomiting Genitourinary: Denies: Dysuria Musculoskeletal: Denies: Joint Pain, Joint Tenderness Skin: Denies: Rash, Wounds Neurological: Denies: Numbness, Tingling, Focal weakness Psychiatric: Denies: Anxiety, Depression, Homicidal Ideations, Suicidal Ideations Hematologic/ Lymphatic: Denies: Easy Bruising, Easy Bleeding VTE Information - Inpt Only VTE Present on Admission: No VTE Mechan Device Prophylaxis: Knee High KEIRA Hose VTE Pharm Prophylaxis ordered?: No Reason prophylaxis not ordered:: Treatment Not Indicated Patient Problems: Active and Suspected Problems (Last Updated 09/23/17 @ 10:02 by Rica Morfin) Sepsis (Acute) Urinary tract infection (Acute) - Physical Exam General: Alert, Oriented x3, Cooperative HEENT: Atraumatic, PERRLA, EOMI, Normocephalic Neck: Supple, No JVD, Negative Carotid Bruits Lungs: Clear to auscultation, Normal air movement Cardiovascular: Regular rate, No murmurs Abdomen: Bowel Sounds Present, Soft, Non Tender Extremities: No edema, Capillary Refill Less than 3 Seconds Skin: No rashes, No breakdown Musculoskeletal: No Tenderness to Palpation of Joints or Extremities Neurological: Cranial nerves II-XII grossly intact Psych/Mental Status: Normal Affect, Appropriate Vital Signs Temp Pulse Resp BP Pulse Ox 98.4 F 70 16 124/71 H 98 12/02/17 17:47 12/02/17 17:47 12/02/17 17:47 12/02/17 17:47 12/02/17 17:47 Oxygen Delivery Method Room Air Weight: 88.9 kg Body Mass Index (BMI) 28.0 Assessment/Plan All Active Problems (Last Updated 09/23/17 @ 10:02 by Rica Morfin) Sepsis (Acute) Urinary tract infection (Acute) Cardiac resynchronization therapy defibrillator (AUTO APPRENTICE MECHANIC-D) in place (Acute 07/06/17) Complete heart block (Acute) Fall (Acute) Closed head injury (Acute) Acute embolic stroke (Resolved) 82 year old male with below past medical history hospitalized for sepsis, urinary tract infection, admitted to TCU with debility, here for rehabilitation, strengthening, prior to discharge home with spouse. Debility - PT/OT. Pain - Tylenol 1000MG Q8H PRN mild pain. Bowel - Miralax 17GM daily, Senna/colace 1 tablet BID, Dulcolax 10MG PO daily PRN. Pneumonia vaccination - Administer Prevnar 13 and/or Pneumovax 23 as necessary. DVT prophylaxis - Not necessary, already on Eliquis. Atrial Fibrillation - Eliquis 5MG BID. Vitamin C deficiency - Vitamin C 500MG daily. Hyperlipidemia - Atorvastatin 80MG QHS. UTI - Cipro 500MG PO BID thru 12/09/2017. Vitamin B12 deficiency - B12 500MCG daily. Diabetes Mellitus II - Metformin 500MG BID. BPH - Tamsulosin 0.4MG daily. Depression - Venlafaxine 150MG daily.
--- NOTE | 2017-12-02 19:52 | HP.PCM_ITS ---
Problem List (1) Sepsis Status: Acute (2) Urinary tract infection Status: Acute (3) Coronary artery disease Status: Chronic (4) Stroke Status: Chronic (5) Atrial fibrillation Status: Chronic (6) Diabetes mellitus Status: Chronic (7) Right hemiplegia Status: Chronic (8) Fall Status: Acute (9) BPH (benign prostatic hyperplasia) Status: Chronic (10) Carotid artery stenosis Status: Chronic (11) Depression Status: Chronic (12) Hyperlipidemia Status: Chronic (13) Bladder cancer Status: Chronic Qualifiers: History of Present Illness Date of Admission: 12/02/17 Chief Complaint: Here for rehabilitation, strengthening, prior to discharge home with spouse. The patient is a 82 year old Male with below past medical history hospitalized after a fall. He was admitted to [facility] and treated appropriately for sepsis, urinary tract infection. Sepsis resolved. 12/02/2017 Admit to TCU with debility, here for rehabilitation, strengthening, prior to discharge home with spouse. 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 Jeremy Maloney and Dr. Narciso Pickens, [facility] Type 2 diabetes mellitus without complications (Chronic) Chronic atrial flutter (Chronic) Ischemic cardiomyopathy (Chronic) EF 23% per echo 08/03/17 [facility] Non-rheumatic aortic stenosis (Chronic) Paroxysmal atrial fibrillation (Chronic) Secondary pulmonary arterial hypertension (Chronic) Atherosclerosis of coronary artery of [place] heart without angina pectoris (Chronic) BPH (benign prostatic hyperplasia) (Chronic) Dyspnea on exertion (Chronic) Nonrheumatic mitral valve insufficiency (Chronic) 2+ regurgitation per echo 08/03/17 done @ [facility] Dysphagia (Chronic) Carotid artery stenosis (Chronic) Right hemiparesis (Chronic) Depression (Chronic) Hyperlipidemia (Chronic) Urinary retention due to benign prostatic hyperplasia (Chronic) Bladder cancer (Chronic) Medical History: Medical History (Last Updated 09/23/17 @ 10:02 by Rica Morfin) 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) I63.10 Acute on chronic systolic (congestive) heart failure (Chronic) I50.23 Complete heart block (Acute) I44.2 Type 2 diabetes mellitus without complications (Chronic) E11.9 Chronic atrial flutter (Chronic) I48.92 Ischemic cardiomyopathy (Chronic) I25.5 EF 23% per echo 08/03/17 done @ [facility] Non-rheumatic aortic stenosis (Chronic) I35.0 Paroxysmal atrial fibrillation (Chronic) I48.0 Secondary pulmonary arterial hypertension (Chronic) I27.21 Atherosclerosis of coronary artery of [place] heart without angina pectoris (Chronic) I25.10 BPH (benign prostatic hyperplasia) (Chronic) N40.0 Nonrheumatic mitral valve insufficiency (Chronic) I34.0 2+ regurgitation per echo 08/03/17 done @ [facility] Dysphagia (Chronic) R13.10 Carotid artery stenosis (Chronic) I65.29 Right hemiparesis (Chronic) G81.91 Depression (Chronic) F32.9 Hyperlipidemia (Chronic) E78.5 Urinary retention due to benign prostatic hyperplasia (Chronic) N40.1, R33.8 Bladder cancer (Chronic) C67.9 Ventricular tachycardia I47.2 Acute embolic stroke (Resolved) I63.9 Allergies morphine Adverse Reaction (Intermediate, Verified 09/23/17 09:56) Nausea and vomiting Home Medications: Ambulatory Orders Medication Instructions Recorded Tamsulosin HCl [Flomax] 0.4 mg PO DAILY 10/21/16 Apixaban [Eliquis] 5 mg PO BID #60 tab 09/13/17 atorvastatin 40 mg tablet 80 mg PO QHS tab 09/23/17 metformin 500 mg tablet 500 mg PO BID tab 09/23/17 venlafaxine 75 mg tablet 150 mg PO DAILY 09/23/17 Acetaminophen [Tylenol] 325 mg PO Q6H PRN PRN 12/02/17 Ascorbic Acid [Vitamin C] 500 mg PO DAILY@0800 12/02/17 Ciprofloxacin HCl 500 mg PO BID 12/02/17 Cyanocobalamin (Vitamin B-12) 500 mcg PO DAILY 12/02/17 [Vitamin B-12] Surgical History: Surgical History (Last Updated 09/23/17 @ 10:22 by Rica Morfin) Cardiac resynchronization therapy defibrillator (FINANCIAL REP-D) in place (Acute) Onset Date: 07/06/[address] Jerez @ [facility] History of coronary artery stent placement (Chronic) Onset Date: 04/09/17 Z95.5 Atherectomy,AYSHA-Mid LAD, AYSHA- Prox RCA, Mid RCA and Distal RCA 04/2017 S/P TAVR (transcatheter aortic valve replacement) (Chronic) Onset Date: 06/28/17 Z95.2 bioprosthetic: 29 mm Jacque [address] Jeremy Maloney and Dr. Narciso Pickens, [facility] Surgical History: total knee arthroplasty - Bilateral., - - 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 Psychiatric History: Depression Lives: Spouse/ Significant Other Smoking Status: Never smoker Tobacco Use: Non-smoker Alcohol: None Drugs: None - *Family History Maternal Family History: Family History (Last Updated 09/23/17 @ 09:55 by Rica Morfin) Mother Cancer Father CAD (coronary artery disease) Brother Cancer History Items: No pertinent history Review of Systems Constitutional: Denies: Chills, Fever, Weight Change HEENT: Denies: Head Aches, Sinus Congestion, Sinus Drainage Cardiovascular: Denies: Chest Pain, Palpitations Respiratory: Denies: Cough, Shortness of breath at rest, Sputum production Gastrointestinal: Denies: Abdominal Pain, Nausea, Vomiting Genitourinary: Denies: Dysuria Musculoskeletal: Denies: Joint Pain, Joint Tenderness Skin: Denies: Rash, Wounds Neurological: Denies: Numbness, Tingling, Focal weakness Psychiatric: Denies: Anxiety, Depression, Homicidal Ideations, Suicidal Ideations Hematologic/ Lymphatic: Denies: Easy Bruising, Easy Bleeding VTE Information - Inpt Only VTE Present on Admission: No VTE Mechan Device Prophylaxis: Knee High KEIRA Hose VTE Pharm Prophylaxis ordered?: No Reason prophylaxis not ordered:: Treatment Not Indicated Patient Problems: Active and Suspected Problems (Last Updated 09/23/17 @ 10:02 by Rica Morfin) Sepsis (Acute) Urinary tract infection (Acute) - Physical Exam General: Alert, Oriented x3, Cooperative HEENT: Atraumatic, PERRLA, EOMI, Normocephalic Neck: Supple, No JVD, Negative Carotid Bruits Lungs: Clear to auscultation, Normal air movement Cardiovascular: Regular rate, No murmurs Abdomen: Bowel Sounds Present, Soft, Non Tender Extremities: No edema, Capillary Refill Less than 3 Seconds Skin: No rashes, No breakdown Musculoskeletal: No Tenderness to Palpation of Joints or Extremities Neurological: Cranial nerves II-XII grossly intact Psych/Mental Status: Normal Affect, Appropriate Vital Signs Temp Pulse Resp BP Pulse Ox 98.4 F 70 16 124/71 H 98 12/02/17 17:47 12/02/17 17:47 12/02/17 17:47 12/02/17 17:47 12/02/17 17:47 Oxygen Delivery Method Room Air Weight: 88.9 kg Body Mass Index (BMI) 28.0 Assessment/Plan All Active Problems (Last Updated 09/23/17 @ 10:02 by Rica Morfin) Sepsis (Acute) Urinary tract infection (Acute) Cardiac resynchronization therapy defibrillator (FINANCIAL REP-D) in place (Acute 07/06/17) Complete heart block (Acute) Fall (Acute) Closed head injury (Acute) Acute embolic stroke (Resolved) 82 year old male with below past medical history hospitalized for sepsis, urinary tract infection, admitted to TCU with debility, here for rehabilitation, strengthening, prior to discharge home with spouse. * Debility - PT/OT. * Pain - Tylenol 1000MG Q8H PRN mild pain. * Bowel - Miralax 17GM daily, Senna/colace 1 tablet BID, Dulcolax 10MG PO daily PRN. * Pneumonia vaccination - Administer Prevnar 13 and/or Pneumovax 23 as necessary. * DVT prophylaxis - Not necessary, already on Eliquis. * Atrial Fibrillation - Eliquis 5MG BID. * Vitamin C deficiency - Vitamin C 500MG daily. * Hyperlipidemia - Atorvastatin 80MG QHS. * UTI - Cipro 500MG PO BID thru 12/09/2017. * Vitamin B12 deficiency - B12 500MCG daily. * Diabetes Mellitus II - Metformin 500MG BID. * BPH - Tamsulosin 0.4MG daily. * Depression - Venlafaxine 150MG daily.
[2017-12-02] MEDS: Atorvastatin Calcium 40 MG Tablet 80 MG PO (20:30)
[2017-12-02] MEDS: Ciprofloxacin 500 MG Tablet PO (20:31)
[2017-12-02 20:40] VITALS: O2SAT 95
[2017-12-02] MEDS: APIXABAN 5 MG TABLET PO (21:05)
[2017-12-03 05:37] LABS: Hematocrit 36.7 % (40-54); Hemoglobin 11.7 g/dl (13.0-16.5); Mean Corp Hgb Conc 31.9 g/gl (32-36); Mean Corpuscular Hgb 29.3 pg (27.0-32.0); Mean Corpuscular Volume 91.8 fL (80-94); Platelet Count 95 K/mm3 (150-450); RBC Distribution Width CV 14.4 % (11.6-14.6); RBC Distribution Width SD 47.4 fl (35.1-43.9); Scan Indicated on CBC? Y/N NO; White Blood Count 3.9 K/mm3 (4.4-11.0)
[2017-12-03 05:51] LABS: Anion Gap 8 (5-15); BUN 20 mg/dL (7-18); BUN/Creat Ratio 16.9 RATIO (10-20); Calcium,Total 8.8 mg/dL (8.5-10.1); Chloride 107 mmol/L (98-107); Creatinine, Serum 1.18 mg/dL (0.70-1.30); EST Glomerular Filtration Rate 63 mL/min (>60); Est Glom Filt Rate - Afr Amer 76 mL/min (>60); Estimated Creatinine Clearance 49.84 ml/min; Glucose 80 mg/dL (74-106); Potassium 4.4 mmol/L (3.5-5.1); Sodium Level 142 mmol/L (136-145)
[2017-12-03] MEDS: Venlafaxine XR 150 MG Capsule PO (06:41)
[2017-12-03] MEDS: Ciprofloxacin 500 MG Tablet PO ×2 (06:41→17:08)
[2017-12-03] MEDS: APIXABAN 5 MG TABLET PO ×2 (06:42→17:08)
[2017-12-03] MEDS: Polyethylene Glycol 3350 17 GM PACKET PO (06:44)
[2017-12-03] MEDS: Senna/Docusate Sodium 1 Tablet PO ×2 (06:44→17:09)
[2017-12-03] MEDS: Cyanocobalamin 500 MCG Tablet PO (06:47)
[2017-12-03 07:31] LABS: Bedside Glucose 72 mg/dL (70-110)
[2017-12-03] MEDS: Ascorbic Acid 500 MG Tablet PO (08:00)
[2017-12-03] MEDS: Tuberculin,Purif.prot.deriv. 50 TU/ML Vial 5 ML ID (12:35)
[2017-12-03] MEDS: Nystatin Powder 15gm Bottle 1 APPLIC TOPICAL ×2 (12:45→20:43)
[2017-12-03 15:39] VITALS: BP 122/65; PULSE 65; RESP 16; TEMP 36.4; O2SAT 100
[2017-12-03] MEDS: Tamsulosin HCl 0.4 MG Capsule PO (17:08)
[2017-12-03] MEDS: Atorvastatin Calcium 40 MG Tablet 80 MG PO (20:41)
[2017-12-03] MEDS: Menthol/Lanolin/Calamine/Znox 113 GM Tube 1 APPLIC TOPICAL (20:47)
[2017-12-04] MEDS: APIXABAN 5 MG TABLET PO ×3 (05:32→20:02)
[2017-12-04] MEDS: Ciprofloxacin 500 MG Tablet PO ×3 (05:32→20:02)
[2017-12-04] MEDS: Venlafaxine XR 150 MG Capsule PO ×2 (05:32→09:07)
[2017-12-04] MEDS: Senna/Docusate Sodium 1 Tablet PO ×2 (05:33→09:07)
[2017-12-04] MEDS: Cyanocobalamin 500 MCG Tablet PO ×2 (05:33→09:08)
[2017-12-04] MEDS: Menthol/Lanolin/Calamine/Znox 113 GM Tube 1 APPLIC TOPICAL ×2 (05:36→20:05)
[2017-12-04] MEDS: Nystatin Powder 15gm Bottle 1 APPLIC TOPICAL ×3 (05:39→20:05)
[2017-12-04 07:01] LABS: Bedside Glucose 82 mg/dL (70-110)
[2017-12-04] MEDS: Ascorbic Acid 500 MG Tablet PO (09:08)
[2017-12-04] MEDS: Polyethylene Glycol 3350 17 GM PACKET PO (09:09)
--- NOTE | 2017-12-04 14:30 | PCM.PN.RX ---
<Kyle Cain D - Last Filed: 12/04/17 14:30> Progress Note - Pharmacy Subjective: TCU Admission Objective: Allergies morphine Adverse Reaction (Intermediate, Verified 09/23/17 09:56) Nausea and vomiting Current Medications Generic Name Dose Route Start Last Admin Trade Name David PRN Reason Stop Dose Admin Acetaminophen 1,000 mg 12/02/17 20:00 Tylenol PO Q8H PRN MILD PAIN (1-3/10) Apixaban 5 mg 12/04/17 08:00 12/04/17 09:08 Eliquis PO 5 mg BID@08,1999 [facility]IS Administration Ascorbic Acid 500 mg 12/03/17 08:00 12/04/17 09:08 Vitamin C PO 500 mg DAILY@0800 FREDIS Administration Atorvastatin Calcium 80 mg 12/02/17 22:00 12/03/17 20:41 Lipitor PO 80 mg QHS FREDIS Administration Bisacodyl 10 mg 12/02/17 19:59 Dulcolax PO DAILY PRN Constipation Calamine/Phenol 1 applic 12/03/17 06:00 12/04/17 05:36 Calmoseptine Ointment TOPICAL 1 applicatio BID@0600,2200 [facility] Administration Protocol Ciprofloxacin HCl 500 mg 12/04/17 08:00 12/04/17 09:09 Cipro PO 12/10/17 20:01 500 mg BID@ FREDIS Administration Cyanocobalamin 500 mcg 12/04/17 08:00 12/04/17 09:08 Vitamin B12 PO 500 mcg DAILY@0800 FR[facility]IS Administration Emollient Ointment 1 applic 12/03/17 06:00 12/04/17 05:40 Eucerin Intensive Repair TOPICAL 1 applicatio BID@0600,2200 [facility] Administration Protocol Metformin HCl 500 mg 12/03/17 08:00 12/04/17 09:08 Glucophage PO 500 mg BIDCM FREDIS Administration Nystatin 1 applic 12/03/17 06:00 12/04/17 12:55 Mycostatin Powder TOPICAL 1 applicatio TID FR[facility]IS Administration Protocol Polyethylene Glycol 17 gm 12/04/17 08:00 12/04/17 09:09 Miralax PO 17 gm DAILY@0800 FREDIS Administration Senna/Docusate Sodium 1 tablet 12/04/17 08:00 12/04/17 09:07 Senokot-S, [place]-Colace PO 1 tablet BID@0800,1999 FR[facility] Administration Tamsulosin HCl 0.4 mg 12/03/17 17:30 12/03/17 17:08 Flomax PO 0.4 mg DAILY@1730 FREDIS Administration Tuberculin PPD 5 tu 12/10/17 10:00 Tubersol, Aplisol, Ppd ID 12/10/17 10:01 X1 ONE Venlafaxine HCl 150 mg 12/04/17 08:00 12/04/17 09:07 Effexor Xr PO 150 mg DAILY@0800 FR[facility]IS Administration Problem List (Last Updated 09/23/17 @ 10:02 by Rica Morfin) Sepsis (Acute) Urinary tract infection (Acute) Coronary artery disease (Chronic) Stroke (Chronic) Atrial fibrillation (Chronic) Diabetes mellitus (Chronic) Right hemiplegia (Chronic) Vital Signs Temp Pulse Resp BP Pulse Ox 97.6 F L 65 16 122/65 H 100 12/03/17 15:39 12/03/17 15:39 12/03/17 15:39 12/03/17 15:39 12/03/17 15:39 Oxygen Delivery Method Room Air Weight: 88.9 kg Body Mass Index (BMI) 28.0 Sodium 142 mmol/L (136-145) 12/03/17 05:25 Potassium 4.4 mmol/L (3.5-5.1) 12/03/17 05:25 Chloride 107 mmol/L (98-107) 12/03/17 05:25 Carbon Dioxide 27.0 mmol/L (21.0-32.0) 12/03/17 05:25 Anion Gap 8 (5-15) 12/03/17 05:25 BUN 20 mg/dL (7-18) H 12/03/17 05:25 Creatinine 1.18 mg/dL (0.70-1.30) 12/03/17 05:25 Est GFR (MDRD) Af Amer 76 mL/min (>60) 12/03/17 05:25 Est GFR (MDRD) Non-Af 63 mL/min (>60) 12/03/17 05:25 BUN/Creatinine Ratio 16.9 RATIO (10-20) 12/03/17 05:25 Glucose 80 mg/dL (74-106) 12/03/17 05:25 Assessment/Plan: 1) Pain APAP for mild pain. Continue to monitor prn medication use, daily pain scores. 2) AFib/CAD Apixaban, atorvastatin. Continue to monitor s/s bleeding, lipids, s/s chest pain. 3) DM2 Metformin twice daily. Continue to monitor BGT, renal function. 4) Derm Calmoseptine, emollient, nystatin powder. Continue to monitor clinically. 5) BPH Tamsulosin. Continue to monitor for symptoms. 6) Nutrition B12, C. Continue to monitor clinically. 7) ID Ciprofloxacin twice daily thru 12/09. Continue to monitor s/s infection. Psychotropic Medications: 8) Depression Venlafaxine XR daily. Continue to monitor s/s depression. Unnecessary Medications: None Bowel Regimen: 9) Senna/s, PEG, prn bisacodyl. Continue to monitor prn medication use, for constipation/diarrhea. Date of Note:: 12/04/17 - Provider Comments Provider responsibility: Provider responsible to enter orders to implement recommendations <Eliecer Benson Chi - Last Filed: 12/04/17 16:46> Progress Note - Pharmacy Subjective: [] Objective: Allergies morphine Adverse Reaction (Intermediate, Verified 09/23/17 09:56) Nausea and vomiting Current Medications Generic Name Dose Route Start Last Admin Trade Name Freq PRN Reason Stop Dose Admin Acetaminophen 1,000 mg 12/02/17 20:00 Tylenol PO Q8H PRN MILD PAIN (1-3/10) Apixaban 5 mg 12/04/17 08:00 12/04/17 09:08 Eliquis PO 5 mg BID@0800,2000 [facility] Administration Ascorbic Acid 500 mg 12/03/17 08:00 12/04/17 09:08 Vitamin C PO 500 mg DAILY@0800 [facility] Administration Atorvastatin Calcium 80 mg 12/02/17 22:00 12/03/17 20:41 Lipitor PO 80 mg QHS FREDIS Administration Bisacodyl 10 mg 12/02/17 19:59 Dulcolax PO DAILY PRN Constipation Calamine/Phenol 1 applic 12/03/17 06:00 12/04/17 05:36 Calmoseptine Ointment TOPICAL 1 applicatio BID@0600,2200 [facility] Administration Protocol Ciprofloxacin HCl 500 mg 12/04/17 08:00 12/04/17 09:09 Cipro PO 12/10/17 20:01 500 mg BID@ FREDIS Administration Cyanocobalamin 500 mcg 12/04/17 08:00 12/04/17 09:08 Vitamin B12 PO 500 mcg DAILY@0800 [facility] Administration Emollient Ointment 1 applic 12/03/17 06:00 12/04/17 05:40 Eucerin Intensive Repair TOPICAL 1 applicatio BID@0600,2200 [facility] Administration Protocol Metformin HCl 500 mg 12/03/17 08:00 12/04/17 09:08 Glucophage PO 500 mg BIDCM [facility] Administration Nystatin 1 applic 12/03/17 06:00 12/04/17 12:55 Mycostatin Powder TOPICAL 1 applicatio TID [facility] Administration Protocol Polyethylene Glycol 17 gm 12/04/17 08:00 12/04/17 09:09 Miralax PO 17 gm DAILY@0800 [facility] Administration Senna/Docusate Sodium 1 tablet 12/04/17 08:00 12/04/17 09:07 Senokot-S, [place]-Colace PO 1 tablet BID@ [facility] Administration Tamsulosin HCl 0.4 mg 12/03/17 17:30 12/03/17 17:08 Flomax PO 0.4 mg DAILY@1730 [facility] Administration Tuberculin PPD 5 tu 12/10/17 10:00 Tubersol, Aplisol, Ppd ID 12/10/17 10:01 X1 ONE Venlafaxine HCl 150 mg 12/04/17 08:00 12/04/17 09:07 Effexor Xr PO 150 mg DAILY@0800 [facility] Administration Problem List (Last Updated 09/23/17 @ 10:02 by Rica Morfin) Sepsis (Acute) Urinary tract infection (Acute) Coronary artery disease (Chronic) Stroke (Chronic) Atrial fibrillation (Chronic) Diabetes mellitus (Chronic) Right hemiplegia (Chronic) Vital Signs Temp Pulse Resp BP Pulse Ox 97.4 F L 71 14 134/70 H 100 12/04/17 15:16 12/04/17 15:16 12/04/17 15:16 12/04/17 15:16 12/04/17 15:16 Oxygen Delivery Method Room Air Weight: 88.9 kg Body Mass Index (BMI) 28.0 Sodium 142 mmol/L (136-145) 12/03/17 05:25 Potassium 4.4 mmol/L (3.5-5.1) 12/03/17 05:25 Chloride 107 mmol/L (98-107) 12/03/17 05:25 Carbon Dioxide 27.0 mmol/L (21.0-32.0) 12/03/17 05:25 Anion Gap 8 (5-15) 12/03/17 05:25 BUN 20 mg/dL (7-18) H 12/03/17 05:25 Creatinine 1.18 mg/dL (0.70-1.30) 12/03/17 05:25 Est GFR (MDRD) Af Amer 76 mL/min (>60) 12/03/17 05:25 Est GFR (MDRD) Non-Af 63 mL/min (>60) 12/03/17 05:25 BUN/Creatinine Ratio 16.9 RATIO (10-20) 12/03/17 05:25 Glucose 80 mg/dL (74-106) 12/03/17 05:25 Assessment/Plan: Psychotropic Medications: Unnecessary Medications: Bowel Regimen: - Provider Comments Provider responsibility: Provider responsible to enter orders to implement recommendations Provider Comments to Recommendations by Pharmacy: Agree
--- NOTE | 2017-12-04 14:34 | PHA.CONS_ITS ---
<Kyle Cain D - Last Filed: 12/04/17 14:30> Progress Note - Pharmacy Subjective: TCU Admission Objective: Allergies morphine Adverse Reaction (Intermediate, Verified 09/23/17 09:56) Nausea and vomiting Current Medications Generic Name Dose Route Start Last Admin Trade Name David PRN Reason Stop Dose Admin Acetaminophen 1,000 mg 12/02/17 20:00 Tylenol PO Q8H PRN MILD PAIN (1-3/10) Apixaban 5 mg 12/04/17 08:00 12/04/17 09:08 Eliquis PO 5 mg BID@08,1999 FR[facility] Administration Ascorbic Acid 500 mg 12/03/17 08:00 12/04/17 09:08 Vitamin C PO 500 mg DAILY@0800 [facility] Administration Atorvastatin Calcium 80 mg 12/02/17 22:00 12/03/17 20:41 Lipitor PO 80 mg QHS [facility]IS Administration Bisacodyl 10 mg 12/02/17 19:59 Dulcolax PO DAILY PRN Constipation Calamine/Phenol 1 applic 12/03/17 06:00 12/04/17 05:36 Calmoseptine Ointment TOPICAL 1 applicatio BID@0600,2200 [facility] Administration Protocol Ciprofloxacin HCl 500 mg 12/04/17 08:00 12/04/17 09:09 Cipro PO 12/10/17 20:01 500 mg BID@ FREDIS Administration Cyanocobalamin 500 mcg 12/04/17 08:00 12/04/17 09:08 Vitamin B12 PO 500 mcg DAILY@0800 [facility] Administration Emollient Ointment 1 applic 12/03/17 06:00 12/04/17 05:40 Eucerin Intensive Repair TOPICAL 1 applicatio BID@0600,2200 [facility] Administration Protocol Metformin HCl 500 mg 12/03/17 08:00 12/04/17 09:08 Glucophage PO 500 mg BIDCM [facility] Administration Nystatin 1 applic 12/03/17 06:00 12/04/17 12:55 Mycostatin Powder TOPICAL 1 applicatio TID [facility] Administration Protocol Polyethylene Glycol 17 gm 12/04/17 08:00 12/04/17 09:09 Miralax PO 17 gm DAILY@0800 [facility] Administration Senna/Docusate Sodium 1 tablet 12/04/17 08:00 12/04/17 09:07 Senokot-S, [place]-Colace PO 1 tablet BID@0800,1999 [facility] Administration Tamsulosin HCl 0.4 mg 12/03/17 17:30 12/03/17 17:08 Flomax PO 0.4 mg DAILY@1730 [facility] Administration Tuberculin PPD 5 tu 12/10/17 10:00 Tubersol, Aplisol, Ppd ID 12/10/17 10:01 X1 ONE Venlafaxine HCl 150 mg 12/04/17 08:00 12/04/17 09:07 Effexor Xr PO 150 mg DAILY@0800 [facility] Administration Problem List (Last Updated 09/23/17 @ 10:02 by Rica Morfin) Sepsis (Acute) Urinary tract infection (Acute) Coronary artery disease (Chronic) Stroke (Chronic) Atrial fibrillation (Chronic) Diabetes mellitus (Chronic) Right hemiplegia (Chronic) Vital Signs Temp Pulse Resp BP Pulse Ox 97.6 F L 65 16 122/65 H 100 12/03/17 15:39 12/03/17 15:39 12/03/17 15:39 12/03/17 15:39 12/03/17 15:39 Oxygen Delivery Method Room Air Weight: 88.9 kg Body Mass Index (BMI) 28.0 Sodium 142 mmol/L (136-145) 12/03/17 05:25 Potassium 4.4 mmol/L (3.5-5.1) 12/03/17 05:25 Chloride 107 mmol/L (98-107) 12/03/17 05:25 Carbon Dioxide 27.0 mmol/L (21.0-32.0) 12/03/17 05:25 Anion Gap 8 (5-15) 12/03/17 05:25 BUN 20 mg/dL (7-18) H 12/03/17 05:25 Creatinine 1.18 mg/dL (0.70-1.30) 12/03/17 05:25 Est GFR (MDRD) Af Amer 76 mL/min (>60) 12/03/17 05:25 Est GFR (MDRD) Non-Af 63 mL/min (>60) 12/03/17 05:25 BUN/Creatinine Ratio 16.9 RATIO (10-20) 12/03/17 05:25 Glucose 80 mg/dL (74-106) 12/03/17 05:25 Assessment/Plan: 1) Pain APAP for mild pain. Continue to monitor prn medication use, daily pain scores. 2) AFib/CAD Apixaban, atorvastatin. Continue to monitor s/s bleeding, lipids, s/s chest pain. 3) DM2 Metformin twice daily. Continue to monitor BGT, renal function. 4) Derm Calmoseptine, emollient, nystatin powder. Continue to monitor clinically. 5) BPH Tamsulosin. Continue to monitor for symptoms. 6) Nutrition B12, C. Continue to monitor clinically. 7) ID Ciprofloxacin twice daily thru 12/09. Continue to monitor s/s infection. Psychotropic Medications: 8) Depression Venlafaxine XR daily. Continue to monitor s/s depression. Unnecessary Medications: None Bowel Regimen: 9) Senna/s, PEG, prn bisacodyl. Continue to monitor prn medication use, for constipation/diarrhea. Date of Note:: 12/04/17 - Provider Comments Provider responsibility: Provider responsible to enter orders to implement recommendations <Eliecer Benson Chi - Last Filed: 12/04/17 16:46> Progress Note - Pharmacy Subjective: [] Objective: Allergies morphine Adverse Reaction (Intermediate, Verified 09/23/17 09:56) Nausea and vomiting Current Medications Generic Name Dose Route Start Last Admin Trade Name Freq PRN Reason Stop Dose Admin Acetaminophen 1,000 mg 12/02/17 20:00 Tylenol PO Q8H PRN MILD PAIN (1-3/10) Apixaban 5 mg 12/04/17 08:00 12/04/17 09:08 Eliquis PO 5 mg BID@0800,2000 [facility] Administration Ascorbic Acid 500 mg 12/03/17 08:00 12/04/17 09:08 Vitamin C PO 500 mg DAILY@0800 FR[facility]IS Administration Atorvastatin Calcium 80 mg 12/02/17 22:00 12/03/17 20:41 Lipitor PO 80 mg QHS [facility]IS Administration Bisacodyl 10 mg 12/02/17 19:59 Dulcolax PO DAILY PRN Constipation Calamine/Phenol 1 applic 12/03/17 06:00 12/04/17 05:36 Calmoseptine Ointment TOPICAL 1 applicatio BID@0600,2200 [facility] Administration Protocol Ciprofloxacin HCl 500 mg 12/04/17 08:00 12/04/17 09:09 Cipro PO 12/10/17 20:01 500 mg BID@ [facility] Administration Cyanocobalamin 500 mcg 12/04/17 08:00 12/04/17 09:08 Vitamin B12 PO 500 mcg DAILY@0800 [facility] Administration Emollient Ointment 1 applic 12/03/17 06:00 12/04/17 05:40 Eucerin Intensive Repair TOPICAL 1 applicatio BID@0600,2200 [facility] Administration Protocol Metformin HCl 500 mg 12/03/17 08:00 12/04/17 09:08 Glucophage PO 500 mg BIDCM [facility] Administration Nystatin 1 applic 12/03/17 06:00 12/04/17 12:55 Mycostatin Powder TOPICAL 1 applicatio TID [facility] Administration Protocol Polyethylene Glycol 17 gm 12/04/17 08:00 12/04/17 09:09 Miralax PO 17 gm DAILY@0800 [facility] Administration Senna/Docusate Sodium 1 tablet 12/04/17 08:00 12/04/17 09:07 Senokot-S, [place]-Colace PO 1 tablet BID@ [facility] Administration Tamsulosin HCl 0.4 mg 12/03/17 17:30 12/03/17 17:08 Flomax PO 0.4 mg DAILY@1730 [facility] Administration Tuberculin PPD 5 tu 12/10/17 10:00 Tubersol, Aplisol, Ppd ID 12/10/17 10:01 X1 ONE Venlafaxine HCl 150 mg 12/04/17 08:00 12/04/17 09:07 Effexor Xr PO 150 mg DAILY@0800 [facility] Administration Problem List (Last Updated 09/23/17 @ 10:02 by Rica Morfin) Sepsis (Acute) Urinary tract infection (Acute) Coronary artery disease (Chronic) Stroke (Chronic) Atrial fibrillation (Chronic) Diabetes mellitus (Chronic) Right hemiplegia (Chronic) Vital Signs Temp Pulse Resp BP Pulse Ox 97.4 F L 71 14 134/70 H 100 12/04/17 15:16 12/04/17 15:16 12/04/17 15:16 12/04/17 15:16 12/04/17 15:16 Oxygen Delivery Method Room Air Weight: 88.9 kg Body Mass Index (BMI) 28.0 Sodium 142 mmol/L (136-145) 12/03/17 05:25 Potassium 4.4 mmol/L (3.5-5.1) 12/03/17 05:25 Chloride 107 mmol/L (98-107) 12/03/17 05:25 Carbon Dioxide 27.0 mmol/L (21.0-32.0) 12/03/17 05:25 Anion Gap 8 (5-15) 12/03/17 05:25 BUN 20 mg/dL (7-18) H 12/03/17 05:25 Creatinine 1.18 mg/dL (0.70-1.30) 12/03/17 05:25 Est GFR (MDRD) Af Amer 76 mL/min (>60) 12/03/17 05:25 Est GFR (MDRD) Non-Af 63 mL/min (>60) 12/03/17 05:25 BUN/Creatinine Ratio 16.9 RATIO (10-20) 12/03/17 05:25 Glucose 80 mg/dL (74-106) 12/03/17 05:25 Assessment/Plan: Psychotropic Medications: Unnecessary Medications: Bowel Regimen: - Provider Comments Provider responsibility: Provider responsible to enter orders to implement recommendations Provider Comments to Recommendations by Pharmacy: Agree
[2017-12-04 15:16] VITALS: BP 134/70; PULSE 71; RESP 14; TEMP 36.3; O2SAT 100
[2017-12-04] MEDS: Tamsulosin HCl 0.4 MG Capsule PO (17:08)
[2017-12-05] MEDS: Nystatin Powder 15gm Bottle 1 APPLIC TOPICAL ×3 (05:00→20:28)
[2017-12-05] MEDS: Menthol/Lanolin/Calamine/Znox 113 GM Tube 1 APPLIC TOPICAL ×2 (05:00→20:28)
[2017-12-05 07:01] LABS: Bedside Glucose 104 mg/dL (70-110)
[2017-12-05] MEDS: APIXABAN 5 MG TABLET PO ×2 (09:22→20:25)
[2017-12-05] MEDS: Ciprofloxacin 500 MG Tablet PO ×2 (09:22→20:26)
[2017-12-05] MEDS: Cyanocobalamin 500 MCG Tablet PO (09:22)
[2017-12-05] MEDS: Venlafaxine XR 150 MG Capsule PO (09:22)
[2017-12-05] MEDS: Ascorbic Acid 500 MG Tablet PO (09:22)
[2017-12-05 15:23] VITALS: BP 139/78; PULSE 68; RESP 14; TEMP 36.3; O2SAT 97
[2017-12-05] MEDS: Bisacodyl 5 MG Tablet 10 MG PO (16:26)
[2017-12-05] MEDS: Tamsulosin HCl 0.4 MG Capsule PO (16:26)
[2017-12-05] MEDS: Atorvastatin Calcium 40 MG Tablet 80 MG PO (20:25)
[2017-12-06] MEDS: Menthol/Lanolin/Calamine/Znox 113 GM Tube 1 APPLIC TOPICAL (05:03)
[2017-12-06] MEDS: Nystatin Powder 15gm Bottle 1 APPLIC TOPICAL ×2 (05:03→14:19)
[2017-12-06 07:01] LABS: Bedside Glucose 70 mg/dL (70-110)
[2017-12-06 07:10] LABS: Bedside Glucose 75 mg/dL (70-110)
[2017-12-06] MEDS: Ascorbic Acid 500 MG Tablet PO (08:08)
[2017-12-06] MEDS: Senna/Docusate Sodium 1 Tablet PO (08:08)
[2017-12-06] MEDS: Polyethylene Glycol 3350 17 GM PACKET PO (08:08)
[2017-12-06] MEDS: Ciprofloxacin 500 MG Tablet PO (08:41)
[2017-12-06] MEDS: Venlafaxine XR 150 MG Capsule PO (08:41)
[2017-12-06] MEDS: Cyanocobalamin 500 MCG Tablet PO (08:41)
[2017-12-06] MEDS: APIXABAN 5 MG TABLET PO (08:42)
[2017-12-06] MEDS: Bisacodyl 5 MG Tablet 10 MG PO (11:15)
[2017-12-06 15:22] VITALS: BP 124/68; PULSE 72; RESP 18; TEMP 36.3; O2SAT 100
[2017-12-06] MEDS: Tamsulosin HCl 0.4 MG Capsule PO (17:23)
--- NOTE | 2017-12-06 20:15 | NURSING ---
Addendum entered by Amanda Lorenz 12/06/17 20:18: This nurse went in patients room to give patient his 2000 medications at 2009. Patient pleasant but refusing his medications stating I will not take medications after 8 pm and before 8 am. Explained to the patient the importance of the medications, and patient states I don't care I don't want the medications at this time. Asked Susy HEALTHCARE SCIENCE SPECIALIST to go in and ask patient to verify that patient does not want medications. Patient still remained pleasant but refused to take medications for Susy as well for the same reasons. Original Note: PATIENT REFUSED ALL HS MEDS. STATED NOTHING AFTER 8PM. VERIFIED WITH YAYA PERALTA PATIENT WAS PLEASANT BUT REFUSED ANY MEDS TONIGHT. IT MUST BE BEFORE 8PM.
[2017-12-07] MEDS: Nystatin Powder 15gm Bottle 1 APPLIC TOPICAL ×2 (05:08→19:39)
[2017-12-07] MEDS: Menthol/Lanolin/Calamine/Znox 113 GM Tube 1 APPLIC TOPICAL ×2 (05:08→19:39)
[2017-12-07 07:01] LABS: Bedside Glucose 71 mg/dL (70-110)
[2017-12-07] MEDS: Cyanocobalamin 500 MCG Tablet PO (08:24)
[2017-12-07] MEDS: Ciprofloxacin 500 MG Tablet PO ×2 (08:24→19:32)
[2017-12-07] MEDS: APIXABAN 5 MG TABLET PO ×2 (08:24→19:33)
[2017-12-07] MEDS: Venlafaxine XR 150 MG Capsule PO (08:24)
[2017-12-07] MEDS: Ascorbic Acid 500 MG Tablet PO (08:24)
[2017-12-07 15:15] VITALS: BP 116/51; PULSE 66; RESP 18; TEMP 36.4; O2SAT 100
[2017-12-07] MEDS: Tamsulosin HCl 0.4 MG Capsule PO (16:51)
[2017-12-07] MEDS: Atorvastatin Calcium 40 MG Tablet 80 MG PO (19:32)
[2017-12-08] MEDS: Menthol/Lanolin/Calamine/Znox 113 GM Tube 1 APPLIC TOPICAL ×2 (05:36→19:25)
[2017-12-08] MEDS: Nystatin Powder 15gm Bottle 1 APPLIC TOPICAL ×2 (05:37→19:24)
[2017-12-08 06:31] LABS: Bedside Glucose 83 mg/dL (70-110)
[2017-12-08] MEDS: Venlafaxine XR 150 MG Capsule PO (08:14)
[2017-12-08] MEDS: Cyanocobalamin 500 MCG Tablet PO (08:14)
[2017-12-08] MEDS: APIXABAN 5 MG TABLET PO ×2 (08:14→19:20)
[2017-12-08] MEDS: Ascorbic Acid 500 MG Tablet PO (08:14)
[2017-12-08] MEDS: Ciprofloxacin 500 MG Tablet PO ×2 (08:15→19:20)
--- NOTE | 2017-12-08 13:32 | CASEMGMT ---
Plan of care meeting held. Resident present as well as resident spouse. No discharge date set at this time. Resident plans to continue with further care and treatment on the Transitional Care Unit. Resident with an insurance update due on 12/09/17. Resident aware that continued stay approval is not guaranteed. Resident plans to discharge to home with spouse at time of discharge. Support given. Will continue to follow. Frannie BETHEA, VOIP ENGINEER
[2017-12-08 15:42] VITALS: BP 131/70; PULSE 70; RESP 18; TEMP 36.1; O2SAT 99
--- NOTE | 2017-12-08 15:57 | CASEMGMT ---
Brief interview for mental status (BIMS) and resident mood interview (PHQ-9) completed on this day. BIMS score 15. PHQ-9 score 07/02
[2017-12-08] MEDS: Tamsulosin HCl 0.4 MG Capsule PO (16:29)
[2017-12-08] MEDS: Atorvastatin Calcium 40 MG Tablet 80 MG PO (19:20)
[2017-12-09] MEDS: Nystatin Powder 15gm Bottle 1 APPLIC TOPICAL ×2 (05:05→19:52)
[2017-12-09] MEDS: Menthol/Lanolin/Calamine/Znox 113 GM Tube 1 APPLIC TOPICAL ×2 (05:06→19:51)
[2017-12-09 06:55] LABS: Bedside Glucose 83 mg/dL (70-110)
[2017-12-09] MEDS: Ciprofloxacin 500 MG Tablet PO ×2 (08:04→19:45)
[2017-12-09] MEDS: APIXABAN 5 MG TABLET PO ×2 (08:04→19:44)
[2017-12-09] MEDS: Venlafaxine XR 150 MG Capsule PO (08:04)
[2017-12-09] MEDS: Cyanocobalamin 500 MCG Tablet PO (08:05)
[2017-12-09] MEDS: Ascorbic Acid 500 MG Tablet PO (08:05)
--- NOTE | 2017-12-09 10:29 | CASEMGMT ---
Insurance Clinical information faxed. Pending continued stay approval at this time. Auth#[id number] Frannie BETHEA, ASSEMBLER MUSICAL INSTRUMENTS
--- NOTE | 2017-12-09 14:13 | CASEMGMT ---
Insurance Continued stay approved with next update due on 12/15/17. Auth#[id number] Frannie BETHEA, CLINICAL NURSE EDUCATOR
[2017-12-09 15:15] VITALS: BP 119/62; PULSE 70; RESP 18; TEMP 36.2; O2SAT 99
[2017-12-09] MEDS: Tamsulosin HCl 0.4 MG Capsule PO (17:05)
[2017-12-09] MEDS: Atorvastatin Calcium 40 MG Tablet 80 MG PO (19:44)
[2017-12-10] MEDS: Nystatin Powder 15gm Bottle 1 APPLIC TOPICAL (05:14)
[2017-12-10] MEDS: Menthol/Lanolin/Calamine/Znox 113 GM Tube 1 APPLIC TOPICAL (05:14)
[2017-12-10 05:27] LABS: Hematocrit 35.7 % (40-54); Hemoglobin 11.6 g/dl (13.0-16.5); Mean Corp Hgb Conc 32.5 g/gl (32-36); Mean Corpuscular Hgb 29.5 pg (27.0-32.0); Mean Corpuscular Volume 90.8 fL (80-94); Mean Platelet Vol. 9.3 fl (6.2-12.0); Platelet Count 90 K/mm3 (150-450); RBC Distribution Width CV 14.1 % (11.6-14.6); RBC Distribution Width SD 46.2 fl (35.1-43.9); Red Blood Count 3.93 M/mm3 (4.6-6.2); White Blood Count 3.4 K/mm3 (4.4-11.0)
[2017-12-10 05:37] LABS: Anion Gap 8 (5-15); BUN 25 mg/dL (7-18); BUN/Creat Ratio 24.8 RATIO (10-20); Chloride 105 mmol/L (98-107); Creatinine, Serum 1.01 mg/dL (0.70-1.30); EST Glomerular Filtration Rate 75 mL/min (>60); Est Glom Filt Rate - Afr Amer 91 mL/min (>60); Estimated Creatinine Clearance 58.22 ml/min; Glucose 89 mg/dL (74-106); Scan Indicated on CBC? Y/N NO; Sodium Level 140 mmol/L (136-145)
[2017-12-10 07:00] LABS: Bedside Glucose 68 mg/dL (70-110)
[2017-12-10 07:01] LABS: Bedside Glucose 129 mg/dL (70-110)
[2017-12-10] MEDS: Cyanocobalamin 500 MCG Tablet PO (08:24)
[2017-12-10] MEDS: Ciprofloxacin 500 MG Tablet PO (08:24)
[2017-12-10] MEDS: APIXABAN 5 MG TABLET PO (08:25)
[2017-12-10] MEDS: Ascorbic Acid 500 MG Tablet PO (08:25)
[2017-12-10] MEDS: Venlafaxine XR 150 MG Capsule PO (08:25)
[2017-12-10] MEDS: Tuberculin,Purif.prot.deriv. 50 TU/ML Vial 5 ML ID (10:21)
[2017-12-10 15:20] VITALS: BP 129/69; PULSE 70; RESP 18; TEMP 36.9; O2SAT 98
[2017-12-10] MEDS: Tamsulosin HCl 0.4 MG Capsule PO (18:23)
--- NOTE | 2017-12-10 19:57 | NURSING ---
Pt refused all HS medications (cipro, eliquis, lipitor) this evening. Pt said I don't want any medications tonight. Come back in the morning. Educated pt on the importance of all medications. Will continue to monitor.
[2017-12-11] MEDS: Menthol/Lanolin/Calamine/Znox 113 GM Tube 1 APPLIC TOPICAL (05:00)
[2017-12-11] MEDS: Nystatin Powder 15gm Bottle 1 APPLIC TOPICAL (05:01)
[2017-12-11 06:41] LABS: Bedside Glucose 87 mg/dL (70-110)
[2017-12-11] MEDS: Ciprofloxacin 500 MG Tablet PO (09:28)
[2017-12-11] MEDS: Cyanocobalamin 500 MCG Tablet PO (09:28)
[2017-12-11] MEDS: Ascorbic Acid 500 MG Tablet PO (09:28)
[2017-12-11] MEDS: Venlafaxine XR 150 MG Capsule PO (09:28)
[2017-12-11] MEDS: APIXABAN 5 MG TABLET PO (09:28)
[2017-12-11 15:25] VITALS: BP 121/70; PULSE 70; RESP 18; TEMP 36.2; O2SAT 97
[2017-12-11] MEDS: Tamsulosin HCl 0.4 MG Capsule PO (17:31)
--- NOTE | 2017-12-11 21:48 | NURSING ---
Pt refused all HS medications (cipro, eliquis, lipitor) pt said I will not take pills after 8pm or before 8am, see you in morning Reminded pt that they are important medications but pt continue to refuse
[2017-12-12] MEDS: Nystatin Powder 15gm Bottle 1 APPLIC TOPICAL ×2 (04:04→19:53)
[2017-12-12] MEDS: Menthol/Lanolin/Calamine/Znox 113 GM Tube 1 APPLIC TOPICAL ×2 (04:05→19:53)
[2017-12-12 07:26] LABS: Bedside Glucose 80 mg/dL (70-110)
[2017-12-12] MEDS: APIXABAN 5 MG TABLET PO ×2 (08:18→19:49)
[2017-12-12] MEDS: Venlafaxine XR 150 MG Capsule PO (08:18)
[2017-12-12] MEDS: Senna/Docusate Sodium 1 Tablet PO (08:18)
[2017-12-12] MEDS: Cyanocobalamin 500 MCG Tablet PO (08:19)
[2017-12-12] MEDS: Ascorbic Acid 500 MG Tablet PO (08:19)
--- NOTE | 2017-12-12 15:32 | NURSING ---
pt refusing multiple medications, requesting to decrease amount of pills he takes. md notified, see new orders
[2017-12-12 15:40] VITALS: BP 115/52; PULSE 70; RESP 18; TEMP 36.6; O2SAT 96
[2017-12-12] MEDS: Tamsulosin HCl 0.4 MG Capsule PO (17:05)
[2017-12-12] MEDS: Atorvastatin Calcium 40 MG Tablet 80 MG PO (19:49)
[2017-12-13] MEDS: Menthol/Lanolin/Calamine/Znox 113 GM Tube 1 APPLIC TOPICAL ×2 (05:59→19:50)
[2017-12-13] MEDS: Nystatin Powder 15gm Bottle 1 APPLIC TOPICAL ×2 (05:59→19:50)
[2017-12-13 06:30] LABS: Bedside Glucose 117 mg/dL (70-110)
[2017-12-13] MEDS: APIXABAN 5 MG TABLET PO ×2 (09:42→19:49)
[2017-12-13] MEDS: Venlafaxine XR 150 MG Capsule PO (09:42)
--- NOTE | 2017-12-13 12:48 | NURSING ---
clinician from Dr merino office here to trim residents toe nails.
--- NOTE | 2017-12-13 12:50 | PCM.PROGNOTE ---
Patient Problems: Active and Suspected Problems (Last Updated 09/23/17 @ 10:02 by Rica Morfin) Sepsis (Acute) Urinary tract infection (Acute) Subjective: This 82-year-old male was consulted to podiatry for thickened, discolored, elongated, painful toenails with subungual debris of toenails 1, 2, 3, 4, 5 of the right and left foot. Patient is resting bedside this afternoon and in no apparent distress. - Physical Exam General: Alert, Oriented x3, Cooperative, No apparent distress Extremities: Capillary Refill Less than 3 Seconds, No Calf Tenderness, Diminished Peripheral Pulses - Due to slight edema, Edema Skin: No rashes, No breakdown Musculoskeletal: Tenderness - to aforementioned toenails Neurological: Sensory exam intact to light touch and pain Psych/Mental Status: Normal Affect, Appropriate Vital Signs Temp Pulse Resp BP Pulse Ox 97.9 F 70 18 115/52 L 96 12/12/17 15:40 12/12/17 15:40 12/12/17 15:40 12/12/17 15:40 12/12/17 15:40 Oxygen Delivery Method Room Air Weight: 88.9 kg Body Mass Index (BMI) 28.0 Intake and Output for Last 24 Hours 12/11/17 12/12/17 12/13/17 23:59 23:59 23:59 Intake Total 680 / 680 320 / 320 120 / 120 Output Total 50 / 50 Balance 680 / 680 270 / 270 120 / 120 POC Glucose 12/13/17 06:18 POC Glucose 117 H Medical Necessity - Tobacco Use Smoking Status: Never smoker Tobacco Use: Non-smoker Assessment/Plan All Active Problems (Last Updated 09/23/17 @ 10:02 by Rica Morfin) Sepsis (Acute) Urinary tract infection (Acute) Cardiac resynchronization therapy defibrillator (BLADDER CHANGER-D) in place (Acute 07/06/17) Complete heart block (Acute) Fall (Acute) Closed head injury (Acute) Acute embolic stroke (Resolved) Patient was examined and evaluated this afternoon. Toenails 1, 2, 3, 4, 5 of the right and left foot were carefully debrided in length using a nail nipper. This was done without incident. Patient experienced relief upon debridement of toenails. Patient is to continue with KEIRA hose for lower extremity edema. Podiatry will continue to follow this patient on an as-needed basis at this time.
--- NOTE | 2017-12-13 13:01 | NURSING ---
Addendum entered by Amanda Ruiz 12/13/17 16:58: up in chair. takes medications without problems. talks to this RN and cooperative with care. Original Note: Resident refusing lunch and refusing therapy. States im not hungry when encouraged to eat. Minimal verbal responses given from resident. Keeps eyes closed mostly during assessment. Nods head yes or no with questions. When asked if this RN can do anything for him he answers no. Will continues to monitor behavior.
[2017-12-13 15:05] VITALS: BP 124/72; PULSE 71; RESP 18; TEMP 36.4; O2SAT 100
[2017-12-13] MEDS: Tamsulosin HCl 0.4 MG Capsule PO (16:55)
[2017-12-13] MEDS: Atorvastatin Calcium 40 MG Tablet 80 MG PO (19:49)
[2017-12-14] MEDS: Nystatin Powder 15gm Bottle 1 APPLIC TOPICAL ×2 (05:30→19:57)
[2017-12-14] MEDS: Menthol/Lanolin/Calamine/Znox 113 GM Tube 1 APPLIC TOPICAL ×2 (05:30→19:53)
[2017-12-14 07:01] LABS: Bedside Glucose 70 mg/dL (70-110)
--- NOTE | 2017-12-14 09:04 | NURSING ---
NO for magnesium citrate 300mL x1 now. Patient made aware.
[2017-12-14] MEDS: APIXABAN 5 MG TABLET PO ×2 (11:05→19:53)
[2017-12-14] MEDS: Venlafaxine XR 150 MG Capsule PO (11:05)
--- NOTE | 2017-12-14 12:29 | NURSING ---
Addendum entered by Gissel Sharp 12/14/17 18:08: DR. PEREZ AWARE OF REFUSAL, NO N.O. Original Note: R' REFUSING TO DRINK MAG CIT[place]. STATES I'M GOING HOME TOMORROW AND I DON'T WANT TO BE GOING EVERYWHERE! R' ADAMANT HE DOES NOT WANT TO TAKE ANYTHING FOR HIS BOWELS, STATING HE'S NOT REGULAR AT HOME AND WILL GO A WEEK AT A TIME AT HOME WELL. BS PRESENT X4 AND R' DENIES DISCOMFORT. WILL UPDATE DR PEREZ ON REFUSAL.
--- NOTE | 2017-12-14 12:33 | CASEMGMT ---
Social Work Spoke with resident in room. Resident requesting for discharge date to be set for 12/15/17, spoke with staff/therapy, 12/15/17 is an agreeable date at this time. Resident plans to discharge to home with spouse. Resident is agreeable to continued therapy services for physical and occupational therapy through home health care. Resident requesting for home health care to be set up through [facility]. Resident is agreeable to this director of social services contacting resident spouse in regards to discharge date/plan. Resident reporting to have all needed durable medical equipment needs already set up within the home. Support given. Telephone call to resident spouse, Ayah. Ayah to not be sure about discharge tomorrow. This director of social services communicating resident right to make a choice and that resident and Ayah should have a conversation and then go from there on whether or not 12/15/17 is an agreeable date for both of them. Ayah voicing understanding and planning to contact resident spouse. Support given. Will continue to follow up with resident and Ayah on decision. Proposed discharge date: 12/15/17 PLAN: Discharge to home with spouse and home health services. Frannie BETHEA, FINANCIAL AIDS OFFICER
--- NOTE | 2017-12-14 13:34 | MDS.RN ---
Addendum entered by Ai Spaulding 12/15/17 07:41: resident was independent/set up for all meals, not extensive assist of 2+, per staff/resident interview Original Note: Information for the mds was obtained from review of the clinical record, interview of resident, staff, and direct observation of resident's care.
--- NOTE | 2017-12-14 14:47 | CASEMGMT ---
Social Work Telephone call to resident spouse, Ayah. Ayah reporting to have spoken with resident and plan is for resident to discharge to home on 12/15/17 with home health services through [facility]. Support given. Confirmed above information with resident, all agreeable to discharge plan. Telephone call to [facility], this social media strategist making referral for physical and occupational therapy. Order to be faxed when obtained. Clinical information faxed. Proposed discharge date: 12/15/17 PLAN: Discharge to home with spouse and home health services. Frannie BETHEA, PUBLIC HEALTH DIRECTOR
[2017-12-14 16:00] VITALS: BP 119/58; PULSE 70; RESP 16; TEMP 37; O2SAT 100
[2017-12-14] MEDS: Tamsulosin HCl 0.4 MG Capsule PO (16:50)
[2017-12-14] MEDS: Atorvastatin Calcium 40 MG Tablet 80 MG PO (19:53)
--- NOTE | 2017-12-14 20:28 | DCINST_ITS ---
- Discharge Diagnoses Current Active Problems: Current Active and Chronic Problems (Last Updated 09/23/17 @ 10:02 by Rica Morfin) Sepsis (Acute) Urinary tract infection (Acute) Coronary artery disease (Chronic) Stroke (Chronic) Atrial fibrillation (Chronic) Diabetes mellitus (Chronic) Right hemiplegia (Chronic) You will use the following diet at home:: No restrictions, Regular Your food should be the consistency of: Regular Your liquids should be the consistency of: Regular/Thin Discharge Activity: Return to Normal Activity, May Shower, Use Walker Weight Bearing Status: Weight bearing as tolerated Call your doctor if you observe: Fever of 101 or Higher, Inability to urinate, Inability to have a bowel movement, Shortness of breath, Chest pain, Uncontrolled pain Allergies/Adverse Reactions: Allergies morphine Adverse Reaction (Intermediate, Verified 09/23/17 09:56) Nausea and vomiting Medications to take at Discharge Tamsulosin HCl [Flomax] 0.4 mg PO DAILY 10/21/16 Apixaban [Eliquis] 5 mg PO BID #60 tab 09/13/17 metformin 500 mg tablet 500 mg PO BID tab 09/23/17 venlafaxine 75 mg tablet 150 mg PO DAILY 09/23/17 Acetaminophen [Tylenol] 1,000 mg PO Q8H PRN tablet 12/14/17 Atorvastatin Calcium [Lipitor] 80 mg PO QHS #60 tab 12/14/17 Tamsulosin HCl [Flomax] 0.4 mg PO DAILY@1730 capsule 12/14/17 The following prescriptions were given: Atorvastatin Calcium [Lipitor] 80 mg PO QHS #60 tab Primary Care Physician: Tavares Yao MD [Primary Care Provider] - Please follow up with your Primary Care Physician in: 1 week. Test Results: Test results from this visit will be discussed in further detail at your follow- up appointment, if applicable. Proposed Discharge Date: 12/15/17
--- NOTE | 2017-12-14 20:30 | DS.PCM_ITS ---
Discharge Date and Diagnosis - Problem List Patient Problems: Active and Suspected Problems (Last Updated 09/23/17 @ 10:02 by Rica Morfin) Sepsis (Acute) Urinary tract infection (Acute) Date of Admission: 12/02/17 Date of Discharge: 12/15/17 - Primary Discharge Diagnosis Active and Suspected Problems (Last Updated 09/23/17 @ 10:02 by Rica Morfin) Sepsis (Acute) Urinary tract infection (Acute) - Secondary Discharge Diagnosis Chronic Problems (Last Updated 09/23/17 @ 10:02 by Rica Morfin) Coronary artery disease (Chronic) Stroke (Chronic) Atrial fibrillation (Chronic) Diabetes mellitus (Chronic) Right hemiplegia (Chronic) 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 Jeremy Maloney and Dr. Narciso Pickens, [facility] Type 2 diabetes mellitus without complications (Chronic) Chronic atrial flutter (Chronic) Ischemic cardiomyopathy (Chronic) EF 23% per echo 08/03/17 done @ [facility] Non-rheumatic aortic stenosis (Chronic) Paroxysmal atrial fibrillation (Chronic) Secondary pulmonary arterial hypertension (Chronic) Atherosclerosis of coronary artery of [place] heart without angina pectoris (Chronic) BPH (benign prostatic hyperplasia) (Chronic) Dyspnea on exertion (Chronic) Nonrheumatic mitral valve insufficiency (Chronic) 2+ regurgitation per echo 08/03/17 done @ [facility] Dysphagia (Chronic) Carotid artery stenosis (Chronic) Right hemiparesis (Chronic) Depression (Chronic) Hyperlipidemia (Chronic) Urinary retention due to benign prostatic hyperplasia (Chronic) Bladder cancer (Chronic) Hospital Course and Treatment Imaging Results: 12/12/17 11:21 Diet: Regular Diet Is pt able to select menu?: Yes Diet Comments: per request of pt, liquid yeast supervisor consulted Labs (Last 48 Hours) 12/13/17 12/14/17 06:18 06:20 POC Glucose 117 H 70 Operations: None Procedures: None Summary of Care Provided: The patient is a 82 year old M robin with below past medical history hospitalized for sepsis, urinary tract infection, admitted to TCU with debility, here for rehabilitation, strengthening, prior to discharge home with spouse. Discharge home with spouse, and Home Health Services. Patient Problems: Active and Suspected Problems (Last Updated 09/23/17 @ 10:02 by Rica Morfin) Sepsis (Acute) Urinary tract infection (Acute) - Physical Exam Vital Signs Temp Pulse Resp BP Pulse Ox 98.6 F 70 16 119/58 L 100 12/14/17 16:00 12/14/17 16:00 12/14/17 16:00 12/14/17 16:00 12/14/17 16:00 Oxygen Delivery Method Room Air Weight: 84.113 kg Body Mass Index (BMI) 28.0 Intake and Output for Last 24 Hours 12/12/17 12/13/17 12/14/17 23:59 23:59 23:59 Intake Total 320 / 320 840 / 840 1200 / 1200 Output Total 50 / 50 Balance 270 / 270 840 / 840 1200 / 1200 POC Glucose 12/14/17 06:20 POC Glucose 70 Discharge Diet: No Restrictions Discharge Activity: Return to Normal Activity, May Shower, Use Walker Weight Bearing Status: Weight bearing as tolerated Call your doctor if you observe: Fever of 101 or Higher, Inability to urinate, Inability to have a bowel movement, Shortness of breath, Chest pain, Uncontrolled pain Home Medications: Medications to take at Discharge Tamsulosin HCl [Flomax] 0.4 mg PO DAILY 10/21/16 Apixaban [Eliquis] 5 mg PO BID #60 tab 09/13/17 metformin 500 mg tablet 500 mg PO BID tab 09/23/17 venlafaxine 75 mg tablet 150 mg PO DAILY 09/23/17 Acetaminophen [Tylenol] 1,000 mg PO Q8H PRN tablet 12/14/17 Atorvastatin Calcium [Lipitor] 80 mg PO QHS #60 tab 12/14/17 Tamsulosin HCl [Flomax] 0.4 mg PO DAILY@1730 capsule 12/14/17 Following Prescrptions Were Given to Patient: Atorvastatin Calcium [Lipitor] 80 mg PO QHS #60 tab Primary Care Physician: Tavares Yao MD [Primary Care Provider] - Please follow up with your Primary Care Physician in: 1 week. Disposition: Home with Home Health Minutes spent on discharge:: 35 Patient Condition:: Stable Medical Necessity - Tobacco Use Smoking Status: Never smoker Tobacco Use: Non-smoker Meaningful Use Info Meaningful Use Diagnoses (Choose all that apply): None applicable
--- NOTE | 2017-12-14 20:30 | PCM.PN.HH ---
Home Health Note - Plan Overview of reason of hospitalization: The patient is a 82 year old M robin with below past medical history hospitalized for sepsis, urinary tract infection, admitted to TCU with debility, here for rehabilitation, strengthening, prior to discharge home with spouse. 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) Cardiac resynchronization therapy defibrillator (EVENT SALES ASSISTANT-D) in place (Acute 07/06/17) Acute on chronic systolic (congestive) heart failure (Chronic) Complete heart block (Acute) History of coronary artery stent placement (Chronic 04/09/17) 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) Type 2 diabetes mellitus without complications (Chronic) Chronic atrial flutter (Chronic) Ischemic cardiomyopathy (Chronic) Non-rheumatic aortic stenosis (Chronic) Paroxysmal atrial fibrillation (Chronic) Secondary pulmonary arterial hypertension (Chronic) Atherosclerosis of coronary artery of [place] heart without angina pectoris (Chronic) Fall (Acute) Closed head injury (Acute) BPH (benign prostatic hyperplasia) (Chronic) Dyspnea on exertion (Chronic) Nonrheumatic mitral valve insufficiency (Chronic) Dysphagia (Chronic) Carotid artery stenosis (Chronic) Right hemiparesis (Chronic) Depression (Chronic) Hyperlipidemia (Chronic) Urinary retention due to benign prostatic hyperplasia (Chronic) Bladder cancer (Chronic) - Requirements and Reasons Disciplines Needed/Ordered: Physical Therapy Reason for Disciplines: Gait Training, Stair Training, Fall Prevention, Home Safety/Equipment Instruction, Balance and/or Posture Training, Transfer Training Related To: Limited/Poor Endurance, Shortness of Breath with Activity, Physical Impairments, Unsteady Gait/Balance, Fall Risk Patient is unable to leave the home: Without the assistance of another person - Additional Disciplines Additional Disciplines Needed/Ordered: Occupational Therapy
[2017-12-15] MEDS: Menthol/Lanolin/Calamine/Znox 113 GM Tube 1 APPLIC TOPICAL (05:02)
[2017-12-15] MEDS: Nystatin Powder 15gm Bottle 1 APPLIC TOPICAL (05:03)
[2017-12-15 06:56] LABS: Bedside Glucose 88 mg/dL (70-110)
[2017-12-15] MEDS: APIXABAN 5 MG TABLET PO (08:50)
[2017-12-15] MEDS: Venlafaxine XR 150 MG Capsule PO (08:51)
[2017-12-15 12:17] VITALS: BP 136/71; PULSE 70; RESP 20; TEMP 36.4; O2SAT 99
== END 2017-12-15 12:25 | disposition home health service (06) | DRG 948 ==
PROVIDERS: Admitting Provider Family Medicine Geriatric Medicine; Family Provider Family Medicine; PCP Family Medicine; Referring Provider Family Medicine Geriatric Medicine; Visit Provider Family Medicine Geriatric Medicine
DX: R53.81 Other malaise (principal); N39.0 Urinary tract infection, site not specified; G81.91 Hemiplegia, unspecified affecting right dominant side; N40.0 Benign prostatic hyperplasia without lower urinary tract symptoms; E11.9 Type 2 diabetes mellitus without complications; F32.9 Major depressive disorder, single episode, unspecified; E78.5 Hyperlipidemia, unspecified; Z95.810 Presence of automatic (implantable) cardiac defibrillator; I25.10 Atherosclerotic heart disease of native coronary artery without angina pectoris; Z86.73 Personal history of transient ischemic attack (TIA), and cerebral infarction without residual deficits; Z85.51 Personal history of malignant neoplasm of bladder; I48.0 Paroxysmal atrial fibrillation; I27.21 Secondary pulmonary arterial hypertension; M79.675 Pain in left toe(s); M79.674 Pain in right toe(s); Z86.19 Personal history of other infectious and parasitic diseases
CPT/HCPCS: 36415; 80048; 82962; 85027; 97110; 97116; 97162; 97166; 97530; 97535; 97802

== ENCOUNTER 2019-01-05 16:26 | Inpatient (IN) | payer MEDICARE, SELFPAY ==
[2019-01-05 16:30] VITALS: BP 108/56; PULSE 71; RESP 18; TEMP 36.4; O2SAT 96; BMI 28.6
[2019-01-05] MEDS: Cefdinir 300 MG Capsule PO (17:38)
[2019-01-05] MEDS: APIXABAN 5 MG TABLET PO (17:38)
[2019-01-05] MEDS: metFORMIN HCl 500 MG Tablet PO (17:38)
[2019-01-05] MEDS: Tamsulosin HCl 0.4 MG Capsule PO (17:38)
[2019-01-05 20:25] VITALS: PULSE 69; O2SAT 97
[2019-01-05] MEDS: metroNIDAZOLE 500 MG Tablet PO (20:49)
[2019-01-05] MEDS: Atorvastatin Calcium 80 MG Tablet PO (20:49)
--- NOTE | 2019-01-05 21:48 | HP.PCM_ITS ---
Problem List (1) Debility Status: Acute (2) Diverticulitis of sigmoid colon Status: Acute (3) Coronary artery stenosis Status: Chronic (4) Chronic systolic heart failure Status: Chronic (5) Pulmonary hypertension Status: Chronic (6) Coronary artery disease Status: Chronic (7) Stroke Status: Chronic (8) Atrial fibrillation Status: Chronic (9) Diabetes mellitus Status: Chronic (10) Right hemiplegia Status: Chronic (11) BPH (benign prostatic hyperplasia) Status: Chronic (12) Hyperlipidemia Status: Chronic (13) Bladder cancer Status: Chronic Qualifiers: History of Present Illness Date of Admission: 01/05/19 Chief Complaint: Here for rehabilitation, strengthening, prior to discharge home with . The patient is a 83 year old Male with below past medical history with followin12/31/2018 Patient presented to ER with abdominal pain, difficulty urinating. Rocephin, Flagyl started in ER for urinary tract infection. CT showed constipation, but patient had [address] showed acute diverticulitis of sigmoid colon. Improved with intravenous antibiotics. PT/OT recommended group home facility. Resident very depressed. 01/05/2019 Admit to TCU with debility, here for rehabilitation, strengthening, prior to discharge home with . 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 Jeremy Maloney and Dr. Narciso Pickens, [facility] Type 2 diabetes mellitus without complications (Chronic) Chronic atrial flutter (Chronic) Ischemic cardiomyopathy (Chronic) EF 23% per echo 08/03/17 done @ [facility] Non-rheumatic aortic stenosis (Chronic) Paroxysmal atrial fibrillation (Chronic) Secondary pulmonary arterial hypertension (Chronic) Atherosclerosis of coronary artery of [place] heart without angina pectoris (Chronic) BPH (benign prostatic hyperplasia) (Chronic) Dyspnea on exertion (Chronic) Nonrheumatic mitral valve insufficiency (Chronic) 2+ regurgitation per echo 08/03/17 done @ [facility] Dysphagia (Chronic) Carotid artery stenosis (Chronic) Right hemiparesis (Chronic) Depression (Chronic) Hyperlipidemia (Chronic) Urinary retention due to benign prostatic hyperplasia (Chronic) Bladder cancer (Chronic) Medical History: Medical History (Last Updated 09/23/17 @ 10:02 by Rica Morfin) 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) I63.10 Acute on chronic systolic (congestive) heart failure (Chronic) I50.23 Complete heart block (Acute) I44.2 Type 2 diabetes mellitus without complications (Chronic) E11.9 Chronic atrial flutter (Chronic) I48.92 Ischemic cardiomyopathy (Chronic) I25.5 EF 23% per echo 08/03/17 done @ [facility] Non-rheumatic aortic stenosis (Chronic) I35.0 Paroxysmal atrial fibrillation (Chronic) I48.0 Secondary pulmonary arterial hypertension (Chronic) I27.21 Atherosclerosis of coronary artery of [place] heart without angina pectoris (Chronic) I25.10 BPH (benign prostatic hyperplasia) (Chronic) N40.0 Nonrheumatic mitral valve insufficiency (Chronic) I34.0 2+ regurgitation per echo 08/03/17 done @ [facility] Dysphagia (Chronic) R13.10 Carotid artery stenosis (Chronic) I65.29 Right hemiparesis (Chronic) G81.91 Depression (Chronic) F32.9 Hyperlipidemia (Chronic) E78.5 Urinary retention due to benign prostatic hyperplasia (Chronic) N40.1, R33.8 Bladder cancer (Chronic) C67.9 Ventricular tachycardia I47.2 Acute embolic stroke (Resolved) I63.9 Allergies morphine Adverse Reaction (Intermediate, Verified 09/23/17 09:56) Nausea and vomiting Home Medications: Ambulatory Orders Medication Instructions Recorded Tamsulosin HCl [Flomax] 0.4 mg PO DAILY 10/21/16 Apixaban [Eliquis] 5 mg PO BID #60 tab 09/13/17 metformin 500 mg tablet 500 mg PO BID tab 09/23/17 venlafaxine 75 mg tablet 150 mg PO DAILY 09/23/17 Acetaminophen [Tylenol] 1,000 mg PO Q8H PRN tablet 12/14/17 Atorvastatin Calcium [Lipitor] 80 mg PO QHS #60 tab 12/14/17 Tamsulosin HCl [Flomax] 0.4 mg PO DAILY@1730 capsule 12/14/17 Surgical History: Surgical History (Last Updated 09/23/17 @ 10:22 by Rica Morfin) Cardiac resynchronization therapy defibrillator (ANALYTICAL LAB TECHNICIAN-D) in place (Acute) Onset Date: 07/06/[address] Jerez @ [facility] History of coronary artery stent placement (Chronic) Onset Date: 04/09/17 Z95.5 Atherectomy,AYSHA-Mid LAD, AYSHA- Prox RCA, Mid RCA and Distal RCA 04/2017 S/P TAVR (transcatheter aortic valve replacement) (Chronic) Onset Date: 06/28/17 Z95.2 bioprosthetic: 29 mm Jacque [address] Jeremy Maloney and Dr. Narciso Pickens, [facility] Surgical History: total knee arthroplasty - Bilateral., - - 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 Psychiatric History: Depression Lives: Spouse/ Significant Other Smoking Status: Former smoker Tobacco Use: Cigarettes Alcohol: None Drugs: None - *Family History Maternal Family History: Family History (Last Updated 09/23/17 @ 09:55 by Rica Morfin) Mother Cancer Father CAD (coronary artery disease) Brother Cancer History Items: No pertinent history Review of Systems Constitutional: Reports: Weakness. Denies: Chills, Fever, Weight Change HEENT: Denies: Head Aches, Sinus Congestion, Sinus Drainage Cardiovascular: Denies: Chest Pain, Palpitations Respiratory: Denies: Cough, Shortness of breath at rest, Sputum production Gastrointestinal: Denies: Abdominal Pain, Nausea, Vomiting Genitourinary: Denies: Dysuria Musculoskeletal: Denies: Joint Pain, Joint Tenderness Skin: Denies: Rash, Wounds Neurological: Denies: Numbness, Tingling, Focal weakness Psychiatric: Reports: Depression. Denies: Anxiety, Homicidal Ideations, Suicidal Ideations Hematologic/ Lymphatic: Denies: Easy Bruising, Easy Bleeding VTE Information - Inpt Only VTE Present on Admission: No VTE Mechan Device Prophylaxis: Knee High KEIRA Hose VTE Pharm Prophylaxis ordered?: No Reason prophylaxis not ordered:: Treatment Not Indicated Patient Problems: Active and Suspected Problems (Last Updated 09/23/17 @ 10:02 by Rica Morfin) Debility (Acute) Diverticulitis of sigmoid colon (Acute) - Physical Exam Vitals/I&O's: Vital Signs Temp Pulse Resp BP Pulse Ox 97.6 F L 69 18 108/56 L 97 01/05/19 16:30 01/05/19 20:25 01/05/19 16:30 01/05/19 16:30 01/05/19 20:25 Oxygen Delivery Method Room Air Weight: 90.5 kg Body Mass Index (BMI) 28.6 General: Alert, Oriented x3, Cooperative HEENT: Atraumatic, PERRLA, EOMI, Normocephalic Neck: Supple, No JVD, Negative Carotid Bruits Lungs: Clear to auscultation, Normal air movement Cardiovascular: Regular rate, No murmurs Abdomen: Bowel Sounds Present, Soft, Non Tender Extremities: No edema, Capillary Refill Less than 3 Seconds Skin: No rashes, No breakdown Musculoskeletal: No Tenderness to Palpation of Joints or Extremities Neurological: Cranial nerves II-XII grossly intact, - - Right hemiplegia. Psych/Mental Status: Normal Affect, Appropriate Current Medications Acetaminophen (Tylenol) 650 mg PO Q6H PRN PRN PRN Reason: Pain or Fever Apixaban (Eliquis) 5 mg PO BID [facility] Last Admin: 01/05/19 17:38 Dose: 5 mg Documented by: Ascorbic Acid (Vitamin C) 500 mg PO DAILY@0800 [facility] Atorvastatin Calcium (Lipitor) 80 mg PO QHS [facility] Last Admin: 01/05/19 20:49 Dose: 80 mg Documented by: Calamine/Phenol (Calmoseptine Ointment) 1 applic TOPICAL 0600,2200 [facility]; Protocol Cefdinir (Omnicef [Equiv]) 300 mg PO Q12 [facility] Stop: 01/08/19 22:00 Last Admin: 01/05/19 17:38 Dose: 300 mg Documented by: Cyanocobalamin (Vitamin B12) 500 mcg PO DAILY@0800 [facility] Docusate Sodium (Colace) 100 mg PO BID PRN PRN PRN Reason: CONSTIPATION Furosemide (Lasix) 20 mg PO DAILY [facility] Metformin [facility] (Glucophage) [facility] Last Admin: 01/05/19 17:38 Dose: 500 mg Documented by: Metronidazole (Flagyl) 500 mg PO TID [facility] Stop: 01/12/19 22:00 Last Admin: 01/05/19 20:49 Dose: 500 mg Documented by: Multi-Ingredient Cream (Eucerin) 1 applic TOPICAL 0600,2200 [facility]; Protocol Nutritional Formula (Lactose Free) (Glucerna Shake) 120 ml PO TIDCM [facility] Nystatin (Mycostatin Powder) 1 applic TOPICAL 0600,2200 [facility]; Protocol Sertraline HCl (Zoloft) 200 mg PO DAILY [facility] Tamsulosin HCl (Flomax) 0.4 mg PO DAILY@1730 [facility] Last Admin: 01/05/19 17:38 Dose: 0.4 mg Documented by: Tuberculin PPD (Tubersol, Aplisol, Ppd) 5 tu ID [id number] ONE Stop: 01/06/19 10:01 Tuberculin PPD (Tubersol, Aplisol, Ppd) 5 tu ID [id number] ONE Stop: 01/13/19 10:01 Assessment/Plan All Active Problems (Last Updated 09/23/17 @ 10:02 by Rica Morfin) Sepsis (Acute) Urinary tract infection (Acute) Debility (Acute) Diverticulitis of sigmoid colon (Acute) Cardiac resynchronization therapy defibrillator (ANALYTICAL LAB TECHNICIAN-D) in place (Acute 07/06/17) Complete heart block (Acute) Fall (Acute) Closed head injury (Acute) Acute embolic stroke (Resolved) 83 year old male with below past medical history hospitalized for acute diverticulitis of sigmoid colon, complicated by severe depression, admitted to TCU with debility, here for rehabilitation, strengthening, prior to discharge home with . * Debility - PT/OT. * Pain - Tylenol 1000MG Q6H PRN pain (1-10) * Bowel - Miralax 17GM daily, Senna/colace 1 tablet BID, Dulcolax 10MG daily PRN. * Adult immunization - Prevnar 13, Pneumovax 23, Flu vaccine as necessary. * DVT prophylaxis - Not necessary, already on Eliquis. * Atrial Fibrillation - Eliquis 5MG BID. * Hyperlipidemia - Atorvastatin 80MG QHS. * Diverticulitis of sigmoid colon - Cefdinir 300MG Q12H thru 01/08/2019, Flagyl 500MG TID thru 01/12/2019. * Chronic systolic heart failure - Lasix 20MG daily. * Nutrition - Glucerna 120ML TIDCM. * Skin irritation - Calmoseptine BID, Eucerin BID. * Diabetes Mellitus II - Metformin 500MG BID. * Tinea Corporis - Nystatin powder BID. * Uncontrolled depression - Fluoxetine 60MG daily, Bupropion 150MG BID. * BPH - Tamsulosin 0.4MG daily.
[2019-01-06] MEDS: Cefdinir 300 MG Capsule PO ×2 (05:38→17:28)
[2019-01-06] MEDS: metroNIDAZOLE 500 MG Tablet PO ×3 (05:38→20:26)
[2019-01-06] MEDS: Furosemide 20 MG Tablet PO (05:38)
[2019-01-06] MEDS: buPROPion (SR) 150 MG Tablet.SA PO ×2 (05:38→17:28)
[2019-01-06] MEDS: APIXABAN 5 MG TABLET PO ×2 (05:38→17:27)
[2019-01-06] MEDS: FLUoxetine 20 MG Capsule 60 MG PO (05:38)
[2019-01-06] MEDS: Menthol/Lanolin/Calamine/Znox 113 GM Tube 1 APPLIC TOPICAL ×2 (05:43→20:29)
[2019-01-06] MEDS: Nystatin Powder 15gm Bottle 1 APPLIC TOPICAL ×2 (05:43→20:26)
[2019-01-06 05:45] LABS: Hematocrit 44.6 % (40-54); Hemoglobin 14.5 g/dL (13.0-16.5); Mean Corp Hgb Conc 32.5 g/dL (32-36); Mean Corpuscular Hgb 29.5 pg (27.0-32.0); Mean Corpuscular Volume 90.7 fL (80-94); POSITIVE COUNT YES; POSITIVE MORPHOLOGY YES; Platelet Count 85 K/mm3 (150-450); RBC Distribution Width CV 13.4 % (11.6-14.6); RBC Distribution Width SD 44.8 fl (35.1-43.9); Red Blood Count 4.92 M/mm3 (4.6-6.2); White Blood Count 4.2 K/mm3 (4.4-11.0)
[2019-01-06 05:48] LABS: Differential Indicated MANUAL DIFF
[2019-01-06 06:06] LABS: Lymphocyte 21 % (19-41); Lymphocyte # 0.88 X10^3/ul (4.0); Monocyte 14 % (0-10); Neutrophil-Segmented 65 % (47-70); Red Cell Morphology NORM C+C NORMAL (NORM C&C); Total Cells Counted 100 (MANUAL DIFF)
[2019-01-06 06:07] LABS: Absolute Lymphocyte Count 0.88 X10^3/uL (0.83-4.51); Absolute Neutrophil Count 2.7 X10^3/uL (2.0-7.7); Neutrophil # 2.73 X10^3/uL (2.7-7.7)
[2019-01-06 06:15] LABS: Platelet Estimate SLT DEC (ADEQ)
[2019-01-06 06:21] LABS: Anion Gap 10 (5-15); BUN 26 mg/dL (7-18); BUN/Creat Ratio 18.7 RATIO (10-20); Calcium,Total 8.8 mg/dL (8.5-10.1); Chloride 104 mmol/L (98-107); Creatinine, Serum 1.39 mg/dL (0.70-1.30); EST Glomerular Filtration Rate 52 mL/min (>60); Est Glom Filt Rate - Afr Amer 63 mL/min (>60); Estimated Creatinine Clearance 41.58 ml/min; Glucose 89 mg/dL (74-106); Potassium 3.9 mmol/L (3.5-5.1); Sodium Level 140 mmol/L (136-145)
[2019-01-06 06:40] LABS: Bedside Glucose 83 mg/dL (70-110)
[2019-01-06] MEDS: Glucerna Shake 120 ML LIQUID PO ×3 (08:55→17:30)
[2019-01-06] MEDS: metFORMIN HCl 500 MG Tablet PO ×2 (08:55→17:29)
--- NOTE | 2019-01-06 10:37 | CASEMGMT ---
Addendum entered by Mary Ann Moseley 01/06/19 10:51: Pt also stated 2 months ago he sold his gun because he was scared he would use it on himself. Pt stated he does not have a plan to , but is discouraged with his current situation. Original Note: Social Work Met with patient for initial assessment. Pt lying in bed with curtains drawn in the dark and reluctant to talk to SW at first. Pt opened with I'm done with this. SW inquired further and pt stated he is done with everything. with life. Discussed feelings and history with pt. Pt had debilitating stroke about 2 years ago and he is unable to care for himself; his helps with everything. He feels like a burden to his , and stated his kids deserted him. He hasn't spoken to his dtr since 2010 and his son since since October. He believes if he dies that would be a relief to his family. Inquired about pt's choice to come to TCU - pt agreed he would work with therapy and see what progress he can make with them. He is just discouraged with his situation, but believes the Lord has a plan for him but doesn't know what I did that was so bad for this to happen to me. Explored his latter day and beliefs a little further and pt agreed for a referral to chain hooker - referral made. Inquired about interests and past hobbies - pt stated he doesn't want to talk about it because he can't do them anymore and it's makes him sad to talk about it. Pt stated he was on medication for depression, but physician said he would be changing those medications. Provided list of new medications ordered, per pt request. Provided ongoing emotional support and pt agreed to notify SW to discuss feelings further or if he gets discouraged and doesn't want to work with therapy. Pt expressed gratitude for visit and conversation. Will continue to follow. Mary Ann Moseley, [place] BETHEA
--- NOTE | 2019-01-06 11:28 | PHA.CONS_ITS ---
<Josey Bejarano M - Last Filed: 01/06/19 11:28> Progress Note - Pharmacy Subjective: TCU ADMISSION Objective: Allergies morphine Adverse Reaction (Intermediate, Verified 09/23/17 09:56) Nausea and vomiting Current Medications Generic Name Dose Route Start Last Admin Trade Name Freq PRN Reason Stop Dose Admin Acetaminophen 1,000 mg 01/05/19 22:06 Tylenol PO Q6H PRN PRN Pain Score 1-12/15 Apixaban 5 mg 01/05/19 18:00 01/06/19 05:38 Eliquis PO 5 mg BID FREDIS Administration Atorvastatin Calcium 80 mg 01/05/19 22:00 01/05/19 20:49 Lipitor PO 80 mg QHS FREDIS Administration Bisacodyl 10 mg 01/05/19 22:05 Dulcolax PO DAILY PRN Constipation Bupropion HCl 150 mg 01/06/19 06:00 01/06/19 05:38 Wellbutrin Sr (150mg Tablets) PO 150 mg BID FREDIS Administration Calamine/Phenol 1 applic 01/06/19 06:00 01/06/19 05:43 Calmoseptine Ointment TOPICAL 1 applicatio 0600,2200 [facility] Administration Protocol Cefdinir 300 mg 01/05/19 18:00 01/06/19 05:38 Omnicef [Equiv] PO 01/08/19 22:00 300 mg Q12 FREDIS Administration Fluoxetine HCl 60 mg 01/06/19 06:00 01/06/19 05:38 Prozac PO 60 mg DAILY FREDIS Administration Metformin HCl 500 mg 01/05/19 18:00 01/06/19 08:55 Glucophage PO 500 mg BIDCM FREDIS Administration Metronidazole 500 mg 01/05/19 22:00 01/06/19 05:38 Flagyl PO 01/12/19 22:00 500 mg TID FREDIS Administration Mirtazapine 7.5 mg 01/06/19 22:00 Remeron PO QHS [facility] Multi-Ingredient Cream 1 applic 01/06/19 06:00 01/06/19 05:38 Eucerin TOPICAL 1 applicatio 0600,2200 [facility] Administration Protocol Nutritional Formula (Lactose Free) 120 ml 01/06/19 07:45 01/06/19 08:55 Glucerna Shake PO 120 ml TIDCM FREDIS Administration Nystatin 1 applic 01/06/19 06:00 01/06/19 05:43 Mycostatin Powder TOPICAL 1 applicatio 0600,2200 [facility] Administration Protocol Polyethylene Glycol 17 gm 01/06/19 06:00 01/06/19 05:38 Miralax PO Not Given DAILY [facility] Senna/Docusate Sodium 1 tablet 01/06/19 06:00 01/06/19 05:39 Senokot-S, Shaw[place]-Colace PO Not Given BID [facility] Tamsulosin HCl 0.4 mg 01/05/19 17:30 01/05/19 17:38 Flomax PO 0.4 mg DAILY@1730 [facility] Administration Tuberculin PPD 5 tu 01/13/19 10:00 Tubersol, Aplisol, Ppd ID 01/13/19 10:01 X1 ONE Problem List (Last Updated 09/23/17 @ 10:02 by Rica Morfin) Debility (Acute) Diverticulitis of sigmoid colon (Acute) Coronary artery stenosis (Chronic) Chronic systolic heart failure (Chronic) Pulmonary hypertension (Chronic) Vital Signs Temp Pulse Resp BP Pulse Ox 97.6 F L 69 18 108/56 L 97 01/05/19 16:30 01/05/19 20:25 01/05/19 16:30 01/05/19 16:30 01/05/19 20:25 Oxygen Delivery Method Room Air Weight: 90.5 kg Body Mass Index (BMI) 28.6 Sodium 140 mmol/L (136-145) 01/06/19 05:25 Potassium 3.9 mmol/L (3.5-5.1) 01/06/19 05:25 Chloride 104 mmol/L (98-107) 01/06/19 05:25 Carbon Dioxide 26.0 mmol/L (21.0-32.0) 01/06/19 05:25 Anion Gap 10 (5-15) 01/06/19 05:25 BUN 26 mg/dL (7-18) H 01/06/19 05:25 Creatinine 1.39 mg/dL (0.70-1.30) H 01/06/19 05:25 Est GFR (MDRD) Af Amer 63 mL/min (>60) 01/06/19 05:25 Est GFR (MDRD) Non-Af 52 mL/min (>60) L 01/06/19 05:25 BUN/Creatinine Ratio 18.7 RATIO (10-20) 01/06/19 05:25 Glucose 89 mg/dL (74-106) 01/06/19 05:25 Assessment/Plan: 1. Pain:Tylenol 1000mg PO Q6H PRN pain (1-10). please continue to monitor PRn usage and for increased/decreased pain 2. Atrial Fibrillation: Eliquis 5mg PO BID. Please continue to monitor for S/S bleeding and bruising 3. Hyperlipidemia: Atorvastatin 80mg PO QHS. Please continue to monitor and check lipid panels as clinically appropriate 4. Diverticulitis of sigmoid colon: Cefdinir 300mg PO Q12H thru 01/08/2019, Flagyl 500mg PO TID thru 01/12/2019. Please continue to monitor for improvement of disease symptoms 5. Diabetes Mellitus II: Metformin 500mg PO BID. Please continue to monitor for S/S of hyper/hypoglycemia, renal function 6. BPH: Tamsulosin 0.4mg PO daily. Please continue to monitor for BPH symptoms 7. Decreased appetite: Mirtazapine 7.5 mg PO QHS. Please continue to monitor patient for increase in appetite Psychotropic Medications: *1. Uncontrolled depression: Fluoxetine 60mg PO daily, Bupropion 150mg PO BID. Please consider a GDR by 07/2019 if clinically appropriate. Unnecessary Medications: None Bowel Regimen: Miralax 17g PO daily, Senna/Docusate 1 tablet PO BID, Dulcolax 10mg PO daily PRN. Please continue to monitor PRN usage and for S/S constipation and/or diarrhea Date of Note:: 01/06/19 - Provider Comments Provider responsibility: Provider responsible to enter orders to implement recommendations <Eliecer Benson Chi - Last Filed: 01/06/19 14:47> Progress Note - Pharmacy Subjective: [] Objective: Allergies morphine Adverse Reaction (Intermediate, Verified 09/23/17 09:56) Nausea and vomiting Current Medications Generic Name Dose Route Start Last Admin Trade Name Freq PRN Reason Stop Dose Admin Acetaminophen 1,000 mg 01/05/19 22:06 Tylenol PO Q6H PRN PRN Pain Score 1-12/15 Apixaban 5 mg 01/05/19 18:00 01/06/19 05:38 Eliquis PO 5 mg BID FREDIS Administration Atorvastatin Calcium 80 mg 01/05/19 22:00 01/05/19 20:49 Lipitor PO 80 mg QHS FREDIS Administration Bisacodyl 10 mg 01/05/19 22:05 Dulcolax PO DAILY PRN Constipation Bupropion HCl 150 mg 01/06/19 06:00 01/06/19 05:38 Wellbutrin Sr (150mg Tablets) PO 150 mg BID FREDIS Administration Calamine/Phenol 1 applic 01/06/19 06:00 01/06/19 05:43 Calmoseptine Ointment TOPICAL 1 applicatio 599,2199 [facility] Administration Protocol Cefdinir 300 mg 01/05/19 18:00 01/06/19 05:38 Omnicef [Equiv] PO 01/08/19 22:00 300 mg Q12 FREDIS Administration Fluoxetine HCl 60 mg 01/06/19 06:00 01/06/19 05:38 Prozac PO 60 mg DAILY FREDIS Administration Metformin HCl 500 mg 01/05/19 18:00 01/06/19 08:55 Glucophage PO 500 mg BIDCM FREDIS Administration Metronidazole 500 mg 01/05/19 22:00 01/06/19 12:21 Flagyl PO 01/12/19 22:00 500 mg TID FREDIS Administration Mirtazapine 7.5 mg 01/06/19 22:00 Remeron PO QHS [facility] Multi-Ingredient Cream 1 applic 01/06/19 06:00 01/06/19 05:38 Eucerin TOPICAL 1 applicatio [facility] Administration Protocol Nutritional Formula (Lactose Free) 120 ml 01/06/19 07:45 01/06/19 11:34 Glucerna Shake PO 120 ml TIDCM [facility] Administration Nystatin 1 applic 01/06/19 06:00 01/06/19 05:43 Mycostatin Powder TOPICAL 1 applicatio 599,2199 [facility] Administration Protocol Polyethylene Glycol 17 gm 01/06/19 06:00 01/06/19 05:38 Miralax PO Not Given DAILY [facility] Senna/Docusate Sodium 1 tablet 01/06/19 06:00 01/06/19 05:39 Senokot-S, [place]-Colace PO Not Given BID [facility] Tamsulosin HCl 0.4 mg 01/05/19 17:30 01/05/19 17:38 Flomax PO 0.4 mg DAILY@1730 [facility] Administration Tuberculin PPD 5 tu 01/13/19 10:00 Tubersol, Aplisol, Ppd ID 01/13/19 10:01 X1 ONE Problem List (Last Updated 09/23/17 @ 10:02 by Rica Morfin) Debility (Acute) Diverticulitis of sigmoid colon (Acute) Coronary artery stenosis (Chronic) Chronic systolic heart failure (Chronic) Pulmonary hypertension (Chronic) Vital Signs Temp Pulse Resp BP Pulse Ox 97.6 F L 69 18 108/56 L 97 01/05/19 16:30 01/05/19 20:25 01/05/19 16:30 01/05/19 16:30 01/05/19 20:25 Oxygen Delivery Method Room Air Weight: 90.5 kg Body Mass Index (BMI) 28.6 Sodium 140 mmol/L (136-145) 01/06/19 05:25 Potassium 3.9 mmol/L (3.5-5.1) 01/06/19 05:25 Chloride 104 mmol/L (98-107) 01/06/19 05:25 Carbon Dioxide 26.0 mmol/L (21.0-32.0) 01/06/19 05:25 Anion Gap 10 (5-15) 01/06/19 05:25 BUN 26 mg/dL (7-18) H 01/06/19 05:25 Creatinine 1.39 mg/dL (0.70-1.30) H 01/06/19 05:25 Est GFR (MDRD) Af Amer 63 mL/min (>60) 01/06/19 05:25 Est GFR (MDRD) Non-Af 52 mL/min (>60) L 01/06/19 05:25 BUN/Creatinine Ratio 18.7 RATIO (10-20) 01/06/19 05:25 Glucose 89 mg/dL (74-106) 01/06/19 05:25 Assessment/Plan: Psychotropic Medications: Unnecessary Medications: Bowel Regimen: - Provider Comments Provider responsibility: Provider responsible to enter orders to implement recommendations Provider Comments to Recommendations by Pharmacy: Agree
[2019-01-06 11:56] LABS: Pathologist Review Reviewed
[2019-01-06] MEDS: Tuberculin,Purif.prot.deriv. 50 TU/ML Vial 5 ML ID (12:20)
--- NOTE | 2019-01-06 12:29 | NURSING ---
dr Doshi here and trimmed toenails
--- NOTE | 2019-01-06 12:33 | PCM.PROGNOTE ---
Patient Problems: Active and Suspected Problems (Last Updated 09/23/17 @ 10:02 by Rica Morfin) Debility (Acute) Diverticulitis of sigmoid colon (Acute) Subjective: This 83-year-old male was consulted to podiatry for debridement of toenails 1, 2, 3, 4, 5 of the right and left foot. Patient states that he cannot remember the last time his toenails were debrided and that they are causing him discomfort. Patient is resting in a chair by his bed with his present in the room. Patient currently denies any feelings of nausea, vomiting, fever, chills. - Physical Exam Vitals/I&O's: Vital Signs Temp Pulse Resp BP Pulse Ox 97.6 F L 69 18 108/56 L 97 01/05/19 16:30 01/05/19 20:25 01/05/19 16:30 01/05/19 16:30 01/05/19 20:25 Oxygen Delivery Method Room Air Weight: 90.5 kg Body Mass Index (BMI) 28.6 Intake and Output for Last 24 Hours 01/04/19 01/05/19 01/06/19 23:59 23:59 23:59 Intake Total 120 / 120 240 / 240 Balance 120 / 120 240 / 240 General: Alert, Oriented x3, Cooperative Extremities: No cyanosis, Capillary Refill Less than 3 Seconds, Diminished Peripheral Pulses, Edema Skin: - - Toenails 1, 2, 3, 4, 5 of the right and left foot are thickened, elongated, discolored, tender to palpation, with the presence of subungual debris. Dryness also noted to the distal feet. Musculoskeletal: Tenderness - With palpation of toenails 1, 2, 3, 4, 5 of the right and left foot Neurological: Sensory exam intact to light touch and pain Psych/Mental Status: Normal Affect, Appropriate Laboratory Results 01/06/19 05:25: WBC 4.2 L, RBC 4.92, Hgb 14.5, Hct 44.6, MCV 90.7, MCH 29.5, MCHC 32.5, RDW Std Deviation 44.8 H, RDW Coeff of [place] 13.4, Plt Count 85 L, MPV 10.0, Neut % (Auto) Not Reportable, Absolute Neuts (auto) 2.7, Absolute Lymphs (auto) 0.88, Total Counted 100, Neutrophils % (Manual) 65, Lymphocytes % (Manual) 21, Monocytes % (Manual) 14 H, Diff Path Review Reviewed, Platelet Estimate SLT DEC, RBC Morphology NORM C+C 01/06/19 05:25: Sodium 140, Potassium 3.9, Chloride 104, Carbon Dioxide 26.0, Anion Gap 10, BUN 26 H, Creatinine 1.39 H, Estim Creat Clear Calc 41.58, Est GFR (MDRD) Af Amer 63, Est GFR (MDRD) Non-Af 52 L, BUN/Creatinine Ratio 18.7, Glucose 89, Calcium 8.8 01/06/19 06:27: POC Glucose 83 Current Medications Acetaminophen (Tylenol) 1,000 mg PO Q6H PRN PRN PRN Reason: Pain Score 1-12/15 Apixaban (Eliquis) 5 mg PO BID [facility] Last Admin: 01/06/19 05:38 Dose: 5 mg Documented by: Atorvastatin Calcium (Lipitor) 80 mg PO QHS [facility] Last Admin: 01/05/19 20:49 Dose: 80 mg Documented by: Bisacodyl (Dulcolax) 10 mg PO DAILY PRN PRN Reason: Constipation Bupropion HCl (Wellbutrin Sr (150mg Tablets)) 150 mg PO BID [facility] Last Admin: 01/06/19 05:38 Dose: 150 mg Documented by: Calamine/Phenol (Calmoseptine Ointment) 1 applic TOPICAL 0600,2200 [facility]; Protocol Last Admin: 01/06/19 05:43 Dose: 1 applicatio Documented by: Cefdinir (Omnicef [Equiv]) 300 mg PO Q12 [facility] Stop: 01/08/19 22:00 Last Admin: 01/06/19 05:38 Dose: 300 mg Documented by: Fluoxetine HCl (Prozac) 60 mg PO DAILY [facility] Last Admin: 01/06/19 05:38 Dose: 60 mg Documented by: Metformin HCl (Glucophage) 500 mg PO BIDCM [facility] Last Admin: 01/06/19 08:55 Dose: 500 mg Documented by: Metronidazole (Flagyl) 500 mg PO TID [facility] Stop: 01/12/19 22:00 Last Admin: 01/06/19 12:21 Dose: 500 mg Documented by: Mirtazapine (Remeron) 7.5 mg PO QHS [facility] Multi-Ingredient Cream (Eucerin) 1 applic TOPICAL 0600,2200 [facility]; Protocol Last Admin: 01/06/19 05:38 Dose: 1 applicatio Documented by: Nutritional Formula (Lactose Free) (Glucerna Shake) 120 ml PO TIDCM [facility] Last Admin: 01/06/19 11:34 Dose: 120 ml Documented by: Nystatin (Mycostatin Powder) 1 applic TOPICAL 0600,2200 [facility]; Protocol Last Admin: 01/06/19 05:43 Dose: 1 applicatio Documented by: Polyethylene Glycol (Miralax) 17 gm PO DAILY [facility] Last Admin: 01/06/19 05:38 Dose: Not Given Documented by: Senna/Docusate Sodium (Senokot-S, Shawnee-Colace) 1 tablet PO BID [facility] Last Admin: 01/06/19 05:39 Dose: Not Given Documented by: Tamsulosin HCl (Flomax) 0.4 mg PO DAILY@1730 [facility] Last Admin: 01/05/19 17:38 Dose: 0.4 mg Documented by: Tuberculin PPD (Tubersol, Aplisol, Ppd) 5 tu ID X1 ONE Stop: 01/13/19 10:01 Medical Necessity - Tobacco Use Smoking Status: Former smoker Tobacco Use: Cigarettes Assessment/Plan All Active Problems (Last Updated 09/23/17 @ 10:02 by Rica Morfin) Sepsis (Acute) Urinary tract infection (Acute) Debility (Acute) Diverticulitis of sigmoid colon (Acute) 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 Next, toenails 1, 2, 3, 4, 5 of the right and left foot were carefully debrided in thickness and length using a nail nipper. This was done without incident. Patient experienced relief upon debridement. Patient to lotion his feet daily. Podiatry can follow this patient on an as-needed basis at this time.
--- NOTE | 2019-01-06 14:16 | CHAPLAIN ---
Type of Pastoral Visit _x__ Initial Visit ___ Follow-up Visit ___ On-call Visit ___ General Patient Visit ___ Spiritual Assessment ___ Family Conference ___ Bereavement ___ Rapid Response ___ Code Blue ___ Other (describe below) Pastoral Care Referral From ___ Patient ___ Family ___ Nurse ___ Physician _x__ Rehabilitation Program Manager ___ Coffee Break Attendant ___ Other (describe below) Sacrament/Intervention _x__ Active listening ___ Anointing ___ Gnosticist ___ Bereavement ___ Communion ___ Elisa exploration ___ ___ Life review ___ Prayer ___ Reconciliation ___ Sacrament of Sick _x__ Supportive presence ___ Wedding ___ Other (describe below) Pastoral Comments patient appears to be napping in chair but is awakened when his name is called; pt gives mostly short or one word answers; pt describes his life after stroke as damn rough; pt states that he lives with spouse and finds support from her; pt says he does not have other family around; pt keeps head down and does not look at steel manager; when asked, pt said he would like to take a nap; this steel manager offered a return visit and future support to pt
[2019-01-06 16:00] VITALS: BP 116/68; PULSE 70; RESP 16; TEMP 36.6; O2SAT 97
[2019-01-06] MEDS: Tamsulosin HCl 0.4 MG Capsule PO (17:27)
[2019-01-06] MEDS: Senna/Docusate Sodium 1 Tablet PO (17:29)
--- NOTE | 2019-01-06 19:02 | NURSING ---
DR PEREZ STARTED PT ON REMERON D/T SUPPRESSED APPETITE.
[2019-01-06] MEDS: Atorvastatin Calcium 80 MG Tablet PO (20:26)
[2019-01-06] MEDS: Mirtazapine 15 MG Tablet 7.5 MG PO (20:26)
[2019-01-07 06:35] LABS: Bedside Glucose 85 mg/dL (70-110)
[2019-01-07] MEDS: Glucerna Shake 120 ML LIQUID PO ×2 (08:57→11:59)
[2019-01-07] MEDS: metFORMIN HCl 500 MG Tablet PO ×2 (08:58→17:36)
[2019-01-07] MEDS: APIXABAN 5 MG TABLET PO ×2 (08:58→17:38)
[2019-01-07] MEDS: metroNIDAZOLE 500 MG Tablet PO ×3 (08:59→19:40)
[2019-01-07] MEDS: FLUoxetine 20 MG Capsule 60 MG PO (08:59)
[2019-01-07] MEDS: Cefdinir 300 MG Capsule PO ×2 (08:59→17:39)
[2019-01-07] MEDS: buPROPion (SR) 150 MG Tablet.SA PO ×2 (09:00→17:40)
[2019-01-07] MEDS: Polyethylene Glycol 3350 17 GM PACKET PO (09:00)
[2019-01-07] MEDS: Senna/Docusate Sodium 1 Tablet PO ×2 (09:00→17:40)
[2019-01-07] MEDS: Menthol/Lanolin/Calamine/Znox 113 GM Tube 1 APPLIC TOPICAL ×2 (09:04→19:39)
[2019-01-07] MEDS: Nystatin Powder 15gm Bottle 1 APPLIC TOPICAL ×2 (09:04→19:40)
[2019-01-07] MEDS: Acetaminophen 500 MG Tablet 1000 MG PO ×2 (09:06→23:00)
[2019-01-07 16:00] VITALS: BP 115/54; PULSE 70; RESP 18; TEMP 36.9; O2SAT 97
[2019-01-07] MEDS: Tamsulosin HCl 0.4 MG Capsule PO (17:37)
[2019-01-07] MEDS: Atorvastatin Calcium 80 MG Tablet PO (19:41)
[2019-01-07] MEDS: Mirtazapine 15 MG Tablet 7.5 MG PO (19:41)
[2019-01-08] MEDS: Acetaminophen 500 MG Tablet 1000 MG PO ×2 (04:04→14:17)
[2019-01-08 06:31] LABS: Bedside Glucose 153 mg/dL (70-110)
[2019-01-08] MEDS: APIXABAN 5 MG TABLET PO ×2 (08:22→17:22)
[2019-01-08] MEDS: Glucerna Shake 120 ML LIQUID PO ×3 (08:22→17:22)
[2019-01-08] MEDS: metFORMIN HCl 500 MG Tablet PO ×2 (08:22→17:22)
[2019-01-08] MEDS: Polyethylene Glycol 3350 17 GM PACKET PO (08:23)
[2019-01-08] MEDS: FLUoxetine 20 MG Capsule 60 MG PO (08:23)
[2019-01-08] MEDS: Cefdinir 300 MG Capsule PO ×2 (08:23→17:23)
[2019-01-08] MEDS: Senna/Docusate Sodium 1 Tablet PO ×2 (08:24→17:23)
[2019-01-08] MEDS: Nystatin Powder 15gm Bottle 1 APPLIC TOPICAL ×2 (08:25→19:27)
[2019-01-08] MEDS: buPROPion (SR) 150 MG Tablet.SA PO ×2 (08:25→17:23)
[2019-01-08] MEDS: Menthol/Lanolin/Calamine/Znox 113 GM Tube 1 APPLIC TOPICAL ×2 (08:25→19:27)
[2019-01-08] MEDS: metroNIDAZOLE 500 MG Tablet PO ×3 (08:26→19:31)
[2019-01-08 15:25] VITALS: BP 100/45; PULSE 70; RESP 18; TEMP 36.6; O2SAT 98
[2019-01-08] MEDS: Tamsulosin HCl 0.4 MG Capsule PO (17:22)
--- NOTE | 2019-01-08 17:58 | NURSING ---
1700- pt aware that ultram ordered and no pain at this time after tylenol for the moment pt refusing dinner tonight. aggrivated on how many pills i took. i dont have room for dinner from all them
[2019-01-08] MEDS: traMADol 50 MG Tablet PO (19:26)
[2019-01-08] MEDS: Mirtazapine 15 MG Tablet 7.5 MG PO (19:31)
[2019-01-08] MEDS: Atorvastatin Calcium 80 MG Tablet PO (19:31)
[2019-01-09 06:26] LABS: Bedside Glucose 112 mg/dL (70-110)
[2019-01-09] MEDS: APIXABAN 5 MG TABLET PO ×2 (08:59→18:02)
[2019-01-09] MEDS: Polyethylene Glycol 3350 17 GM PACKET PO (08:59)
[2019-01-09] MEDS: Senna/Docusate Sodium 1 Tablet PO ×2 (08:59→18:02)
[2019-01-09] MEDS: metFORMIN HCl 500 MG Tablet PO ×2 (08:59→18:02)
[2019-01-09] MEDS: metroNIDAZOLE 500 MG Tablet PO ×3 (08:59→19:30)
[2019-01-09] MEDS: buPROPion (SR) 150 MG Tablet.SA PO ×2 (09:00→18:02)
[2019-01-09] MEDS: FLUoxetine 20 MG Capsule 60 MG PO (09:00)
[2019-01-09] MEDS: Nystatin Powder 15gm Bottle 1 APPLIC TOPICAL ×2 (09:07→19:33)
[2019-01-09] MEDS: Menthol/Lanolin/Calamine/Znox 113 GM Tube 1 APPLIC TOPICAL ×2 (09:10→19:32)
[2019-01-09] MEDS: Glucerna Shake 120 ML LIQUID PO ×3 (09:11→18:01)
[2019-01-09] MEDS: Acetaminophen 500 MG Tablet 1000 MG PO (11:58)
--- NOTE | 2019-01-09 15:26 | CHAPLAIN ---
RN recommended visit and said PT had asked him about spiritual care; pt was sleeping at time of attempted visit
[2019-01-09 16:00] VITALS: BP 113/61; PULSE 70; RESP 19; TEMP 36.6
[2019-01-09] MEDS: Tamsulosin HCl 0.4 MG Capsule PO (18:01)
[2019-01-09] MEDS: Atorvastatin Calcium 80 MG Tablet PO (19:31)
[2019-01-09] MEDS: Mirtazapine 15 MG Tablet 7.5 MG PO (19:31)
[2019-01-10 06:30] LABS: Bedside Glucose 100 mg/dL (70-110)
[2019-01-10] MEDS: traMADol 50 MG Tablet PO (10:28)
[2019-01-10] MEDS: Glucerna Shake 120 ML LIQUID PO ×2 (10:29→17:10)
[2019-01-10] MEDS: FLUoxetine 20 MG Capsule 60 MG PO (10:30)
[2019-01-10] MEDS: metFORMIN HCl 500 MG Tablet PO ×2 (10:30→17:08)
[2019-01-10] MEDS: APIXABAN 5 MG TABLET PO ×2 (10:30→17:08)
[2019-01-10] MEDS: metroNIDAZOLE 500 MG Tablet PO ×3 (10:30→20:02)
[2019-01-10] MEDS: buPROPion (SR) 150 MG Tablet.SA PO ×2 (10:31→17:09)
[2019-01-10] MEDS: Nystatin Powder 15gm Bottle 1 APPLIC TOPICAL ×2 (10:35→20:03)
[2019-01-10] MEDS: Menthol/Lanolin/Calamine/Znox 113 GM Tube 1 APPLIC TOPICAL ×2 (10:46→20:03)
--- NOTE | 2019-01-10 14:24 | CHAPLAIN ---
Type of Pastoral Visit ___ Initial Visit _x__ Follow-up Visit ___ On-call Visit ___ General Patient Visit ___ Spiritual Assessment ___ Family Conference ___ Bereavement ___ Rapid Response ___ Code Blue ___ Other (describe below) Pastoral Care Referral From _x__ Patient ___ Family _x__ Nurse ___ Physician ___ Automation Developer ___ Travel Guide _x__ Other (describe below) Sacrament/Intervention _x__ Active listening ___ Anointing ___ Moravian ___ Bereavement ___ Communion ___ Elisa exploration ___ ___ Life review ___ Prayer ___ Reconciliation ___ Sacrament of Sick ___ Supportive presence ___ Wedding ___ Other (describe below) Pastoral Comments PT recommended visit and was given the ok by the patient; however family members were visiting the pt at this time so the encounter was brief; pt was grumpy after PT and presents with a hard exterior emotionally; do to others in the room this railroad brake repairer offered to return another time to visit and pt agreed
[2019-01-10 16:00] VITALS: BP 107/65; PULSE 70; RESP 19; TEMP 36.6; O2SAT 94
[2019-01-10] MEDS: Tamsulosin HCl 0.4 MG Capsule PO (17:08)
[2019-01-10] MEDS: Senna/Docusate Sodium 1 Tablet PO (17:09)
--- NOTE | 2019-01-10 19:21 | NURSING ---
pt c/o back pain, dr cheema updated, new order to change tylenol to sched
[2019-01-10] MEDS: Acetaminophen 500 MG Tablet 1000 MG PO (20:02)
[2019-01-10] MEDS: Atorvastatin Calcium 80 MG Tablet PO (20:03)
[2019-01-10] MEDS: Mirtazapine 15 MG Tablet 7.5 MG PO (20:03)
[2019-01-11] MEDS: traMADol 50 MG Tablet PO (03:14)
[2019-01-11 06:07] VITALS: BP 127/68; PULSE 71; O2SAT 98
[2019-01-11] MEDS: Acetaminophen 500 MG Tablet 1000 MG PO ×3 (06:09→17:21)
--- NOTE | 2019-01-11 06:26 | NURSING ---
This nurse in to see patient at this time. Patient complaining of back pain rating it a 10. Patient had c/o back pain at 0315 this morning. Patient very resistant at care at this time. Prn Ultram had been given. Patient states that Ultram was effective. Patient states that Ultram had take his pain down to a six. Tylenol given at this time. When patient sat up in bed to give meds safely patient yelled and grabbed on to this nurse arm stating put me the God Damn down, I hurt. Explained to the patient that he needs to sit up to take his pills. Patient agreed and quickly took down his pills and patient head of bed was lowered for comfort. Patient very appreciative of pain pills. Will update Dr. Benson of this.
[2019-01-11 06:41] LABS: Bedside Glucose 94 mg/dL (70-110)
[2019-01-11] MEDS: Glucerna Shake 120 ML LIQUID PO ×3 (08:34→17:22)
[2019-01-11] MEDS: oxyCODONE 5 MG Tablet PO (08:34)
[2019-01-11] MEDS: Ondansetron ODT 4 MG Tablet 8 MG PO (09:16)
--- NOTE | 2019-01-11 10:30 | CASEMGMT ---
Social Work IDT met with patient and for care plan meeting; however, pt was asleep for meeting. Discussed patient's progress in therapy. opened with this is the best place ever - very appreciative of care for pt. Pt has declined since admission. Pt is total assist for ADLs and is now a jai lift x2 for transfers. Pt has been complaining of back pain which is limited in therapy - nursing aware. Pt has poor appetite - was started on medication at admission, will be changed to a regular diet, and drinking Glucerna to assist with weight loss. aware of overall decline. Will speak with patient when more alert about goals moving forward. Explained insurance update 01/12 and continued stay is not guaranteed. Will continue to follow. AUSTIN CannonW
[2019-01-11] MEDS: Menthol/Lanolin/Calamine/Znox 113 GM Tube 1 APPLIC TOPICAL ×2 (11:20→19:57)
[2019-01-11] MEDS: Nystatin Powder 15gm Bottle 1 APPLIC TOPICAL ×2 (11:20→19:56)
[2019-01-11] MEDS: APIXABAN 5 MG TABLET PO ×2 (11:24→17:23)
[2019-01-11] MEDS: metFORMIN HCl 500 MG Tablet PO ×2 (11:25→17:22)
[2019-01-11] MEDS: FLUoxetine 20 MG Capsule 60 MG PO (11:25)
[2019-01-11] MEDS: buPROPion (SR) 150 MG Tablet.SA PO ×2 (11:28→17:28)
[2019-01-11] MEDS: metroNIDAZOLE 500 MG Tablet PO ×3 (11:30→19:53)
[2019-01-11 16:00] VITALS: BP 105/51; PULSE 70; RESP 19; TEMP 36.3; O2SAT 95
[2019-01-11] MEDS: Tamsulosin HCl 0.4 MG Capsule PO (17:22)
[2019-01-11] MEDS: Senna/Docusate Sodium 1 Tablet PO (17:23)
--- NOTE | 2019-01-11 17:52 | CASEMGMT ---
Social Work Met with patient to discuss mood, wishes and goals. Explained hospice and difference between hospice and continuing with therapy. Pt explained although he is in pain, he still wants to work with therapy as long as insurance allows him, but that knows he cannot return home with the assistance he needs currently. Pt is realistic with the care he requires and his cannot care for him at home. Pt stated once therapy is done, he would like to talk to [facility] to potentially admit to their IPU. SW reassured his decision and will continue to assist with his wishes. Pt requested to call to make sure she is agreeable. Spoke with to provide above information, and satisfied with pt decision. Will continue to follow. Mary Ann Moseley, [employer] PANELBOARD OPERATOR HOUSEHOLD APPLIANCES SERVICE TECHNICIAN
[2019-01-11] MEDS: Atorvastatin Calcium 80 MG Tablet PO (19:53)
[2019-01-11] MEDS: Mirtazapine 15 MG Tablet 7.5 MG PO (19:54)
[2019-01-12 06:31] LABS: Bedside Glucose 86 mg/dL (70-110)
[2019-01-12] MEDS: Acetaminophen 500 MG Tablet 1000 MG PO ×4 (08:04→20:00)
[2019-01-12] MEDS: metroNIDAZOLE 500 MG Tablet PO ×3 (08:05→20:02)
[2019-01-12] MEDS: buPROPion (SR) 150 MG Tablet.SA PO ×2 (08:05→17:11)
[2019-01-12] MEDS: metFORMIN HCl 500 MG Tablet PO ×2 (08:05→17:10)
[2019-01-12] MEDS: FLUoxetine 20 MG Capsule 60 MG PO (08:05)
[2019-01-12] MEDS: APIXABAN 5 MG TABLET PO ×2 (08:05→17:10)
[2019-01-12] MEDS: Glucerna Shake 120 ML LIQUID PO ×2 (08:05→17:10)
[2019-01-12] MEDS: Menthol/Lanolin/Calamine/Znox 113 GM Tube 1 APPLIC TOPICAL ×2 (08:12→20:05)
[2019-01-12] MEDS: Nystatin Powder 15gm Bottle 1 APPLIC TOPICAL ×2 (08:12→20:06)
--- NOTE | 2019-01-12 08:45 | NURSING ---
This nurse in to give pt pain medicine at this time, pt refused. pt stated that his arms were weak and he is dying. Dr. Benson notified. Offered pt transfer to ED for further evaluation vs monitoring. pt does not want ER transfer at this time. will notify family
--- NOTE | 2019-01-12 10:25 | NURSING ---
Talked with , Ayah. She was thankful for update, stated she believes that pt is shutting down and giving up the ship, but pt has fought this for a long time
--- NOTE | 2019-01-12 12:35 | NURSING ---
pt awake and feeding self breakfast in bed. reports that back is ok rt now. orange pop from own supply. no other needs at this time
--- NOTE | 2019-01-12 13:40 | NURSING ---
1230-pt in bed and ate 100% of lunch and able to feed self but c/o hard to chew carolynn of not many teeth pt changed with therapy for xlarge incont urine and pt assisted in rolling side to side and stated, if you let me help and go slow with me it doesnt hurt pt agreeable to getting up in chair for awhile and in better spirits perhaps. no other needs and pt out of room to work with therapy
[2019-01-12 15:23] VITALS: BP 119/61; PULSE 70; RESP 20; TEMP 36.5; O2SAT 95
[2019-01-12] MEDS: traMADol 50 MG Tablet PO (15:24)
[2019-01-12] MEDS: Tamsulosin HCl 0.4 MG Capsule PO (17:10)
[2019-01-12] MEDS: Senna/Docusate Sodium 1 Tablet PO (17:10)
--- NOTE | 2019-01-12 18:10 | NURSING ---
pt turned in bed but refusing supper at this time. pain better and rates a 5 now. pants off and attends checked. no other needs.
[2019-01-12] MEDS: Atorvastatin Calcium 80 MG Tablet PO (20:01)
[2019-01-12] MEDS: Mirtazapine 15 MG Tablet 7.5 MG PO (20:01)
[2019-01-12] MEDS: oxyCODONE 5 MG Tablet PO (23:45)
[2019-01-13] MEDS: oxyCODONE 5 MG Tablet PO (06:00)
[2019-01-13 06:29] LABS: Absolute Lymphocyte Count 0.83 X10^3/uL (0.83-4.51); Absolute Neutrophil Count 2.5 X10^3/uL (2.0-7.7); Basophil# 0.02 X10^3/uL; Basophil% 0.4 % (0-1); Eosinophil# 0.03 X10^3/uL; Eosinophils% 0.7 % (0-5); Hematocrit 46.2 % (40-54); Hemoglobin 14.7 g/dL (13.0-16.5); Lymphocyte # 0.83 X10^3/ul (4.0); Lymphocyte % 18.1 % (19-41); Mean Corp Hgb Conc 31.8 g/dL (32-36); Mean Corpuscular Hgb 29.5 pg (27.0-32.0); Mean Corpuscular Volume 92.8 fL (80-94); Monocyte# 1.09 X10^3/uL; Monocyte% 23.8 % (0-10); NRBC Flagged by Analyzer 0 % (0-5); Neutrophil # 2.45 X10^3/uL (2.7-7.7); Neutrophil % 53.5 % (47-70); POSITIVE COUNT YES; Platelet Count 88 K/mm3 (150-450); RBC Distribution Width SD 47.8 fl (35.1-43.9); Red Blood Count 4.98 M/mm3 (4.6-6.2); White Blood Count 4.6 K/mm3 (4.4-11.0)
[2019-01-13 06:31] LABS: Bedside Glucose 99 mg/dL (70-110)
[2019-01-13 06:35] LABS: Anion Gap 8 (5-15); BUN 32 mg/dL (7-18); BUN/Creat Ratio 22.7 RATIO (10-20); Calcium,Total 8.9 mg/dL (8.5-10.1); Chloride 106 mmol/L (98-107); Creatinine, Serum 1.41 mg/dL (0.70-1.30); EST Glomerular Filtration Rate 51 mL/min (>60); Est Glom Filt Rate - Afr Amer 62 mL/min (>60); Estimated Creatinine Clearance 40.99 ml/min; Glucose 106 mg/dL (74-106); Potassium 4.5 mmol/L (3.5-5.1); Sodium Level 140 mmol/L (136-145)
[2019-01-13] MEDS: FLUoxetine 20 MG Capsule 60 MG PO (07:56)
[2019-01-13] MEDS: buPROPion (SR) 150 MG Tablet.SA PO ×2 (07:57→17:44)
[2019-01-13] MEDS: APIXABAN 5 MG TABLET PO ×2 (07:57→17:44)
[2019-01-13] MEDS: metFORMIN HCl 500 MG Tablet PO ×2 (07:57→17:42)
[2019-01-13] MEDS: Glucerna Shake 120 ML LIQUID PO ×3 (07:58→17:44)
[2019-01-13] MEDS: Menthol/Lanolin/Calamine/Znox 113 GM Tube 1 APPLIC TOPICAL ×2 (07:59→20:35)
[2019-01-13] MEDS: Nystatin Powder 15gm Bottle 1 APPLIC TOPICAL ×2 (07:59→20:36)
[2019-01-13] MEDS: traMADol 50 MG Tablet PO (08:07)
[2019-01-13] MEDS: Acetaminophen 500 MG Tablet 1000 MG PO ×4 (08:08→20:33)
--- NOTE | 2019-01-13 08:20 | RAD_ITS ---
STUDY: X-RAY - LUMBAR SPINE REASON FOR EXAM: Male, 83 years old. Severe low back pain. TECHNIQUE: History view(s) of the lumbar spine were obtained. COMPARISON: None FINDINGS: There is straightening of the normal lumbar lordosis. There is no substantial scoliosis. There is a normal alignment of the vertebrae. There is multilevel endplate spondylosis of the lumbar vertebrae. There is multi-level degenerative disc disease with multi-level disc space narrowing. There is atherosclerotic calcification of the abdominal aorta without a demonstrated aneurysm. RAD/Lumbar Spine 2 or 3 Views IMPRESSION: Degenerative changes of the spine, as detailed above. Loss of the normal lumbar lordosis. Electronically Signed: Delta Escobar, at 10:00 EST , Service support ,
[2019-01-13] MEDS: Tuberculin,Purif.prot.deriv. 50 TU/ML Vial 5 ML ID (11:28)
--- NOTE | 2019-01-13 15:20 | CASEMGMT ---
Social Work Spoke with patient's about insurance approving pt with NRD 01/19 and anticipating DC date thereafter. stated she would talk with pt next week about facilities to DC to if he is not eligible for IPU at [facility] or he no longer wants hospice. Offered assistance and said she would reach out next week. Will follow up with pt as well. Mary Ann Moseley, [place] [employer] SALESPERSON
[2019-01-13 16:00] VITALS: BP 136/71; PULSE 70; RESP 17; TEMP 37; O2SAT 96
[2019-01-13] MEDS: Tamsulosin HCl 0.4 MG Capsule PO (17:42)
[2019-01-13] MEDS: Atorvastatin Calcium 80 MG Tablet PO (20:34)
[2019-01-13] MEDS: Mirtazapine 15 MG Tablet 7.5 MG PO (20:34)
[2019-01-14 06:30] LABS: Bedside Glucose 84 mg/dL (70-110)
[2019-01-14] MEDS: Glucerna Shake 120 ML LIQUID PO ×3 (08:06→16:55)
[2019-01-14] MEDS: Menthol/Lanolin/Calamine/Znox 113 GM Tube 1 APPLIC TOPICAL ×2 (08:07→19:47)
[2019-01-14] MEDS: APIXABAN 5 MG TABLET PO ×2 (08:08→16:57)
[2019-01-14] MEDS: metFORMIN HCl 500 MG Tablet PO ×2 (08:10→16:57)
[2019-01-14] MEDS: Polyethylene Glycol 3350 17 GM PACKET PO (08:10)
[2019-01-14] MEDS: FLUoxetine 20 MG Capsule 60 MG PO (08:11)
[2019-01-14] MEDS: Senna/Docusate Sodium 1 Tablet PO ×2 (08:11→16:58)
[2019-01-14] MEDS: Nystatin Powder 15gm Bottle 1 APPLIC TOPICAL ×2 (08:11→19:48)
[2019-01-14] MEDS: Acetaminophen 500 MG Tablet 1000 MG PO ×4 (08:12→20:53)
[2019-01-14] MEDS: buPROPion (SR) 150 MG Tablet.SA PO (08:12)
--- NOTE | 2019-01-14 13:54 | NURSING ---
Addendum entered by Tarah Cortes 01/14/19 14:16: dr cheema updated, new order to DC ultram Original Note: Family is concerned as resident reports hallucinating. Resident reports the same thing seeing bugs on prakash and cars on the ceiling. Reports that symptoms started awhile ago when the doctor started me on some medications. YAYA Rascon aware. Will notify Dr Cheema of findings.
[2019-01-14 16:00] VITALS: BP 126/77; PULSE 69; RESP 19; TEMP 36.8; O2SAT 97
[2019-01-14] MEDS: Tamsulosin HCl 0.4 MG Capsule PO (16:57)
[2019-01-14] MEDS: buPROPion (SR) 150 MG Tablet.SA 75 MG PO (16:58)
[2019-01-14] MEDS: Atorvastatin Calcium 80 MG Tablet PO (20:53)
[2019-01-15 06:46] LABS: Bedside Glucose 91 mg/dL (70-110)
[2019-01-15] MEDS: oxyCODONE 5 MG Tablet PO (08:08)
[2019-01-15] MEDS: buPROPion (SR) 150 MG Tablet.SA 75 MG PO ×2 (08:11→16:26)
[2019-01-15] MEDS: Glucerna Shake 120 ML LIQUID PO (08:11)
[2019-01-15] MEDS: Polyethylene Glycol 3350 17 GM PACKET PO (08:12)
[2019-01-15] MEDS: Senna/Docusate Sodium 1 Tablet PO (08:13)
[2019-01-15] MEDS: APIXABAN 5 MG TABLET PO ×2 (08:13→16:27)
[2019-01-15] MEDS: metFORMIN HCl 500 MG Tablet PO ×2 (08:13→16:25)
[2019-01-15] MEDS: FLUoxetine 20 MG Capsule PO (08:13)
[2019-01-15] MEDS: Nystatin Powder 15gm Bottle 1 APPLIC TOPICAL ×2 (08:17→20:04)
[2019-01-15] MEDS: Menthol/Lanolin/Calamine/Znox 113 GM Tube 1 APPLIC TOPICAL ×2 (08:17→20:04)
[2019-01-15] MEDS: Acetaminophen 500 MG Tablet 1000 MG PO ×3 (08:58→20:01)
[2019-01-15 15:39] VITALS: BP 123/64; PULSE 70; RESP 17; TEMP 36.8; O2SAT 97
[2019-01-15] MEDS: Tamsulosin HCl 0.4 MG Capsule PO (16:25)
[2019-01-15] MEDS: Atorvastatin Calcium 80 MG Tablet PO (20:02)
[2019-01-16 07:02] LABS: Bedside Glucose 92 mg/dL (70-110)
[2019-01-16] MEDS: buPROPion (SR) 150 MG Tablet.SA 75 MG PO (08:39)
[2019-01-16] MEDS: Polyethylene Glycol 3350 17 GM PACKET PO (08:39)
[2019-01-16] MEDS: Menthol/Lanolin/Calamine/Znox 113 GM Tube 1 APPLIC TOPICAL ×2 (08:39→19:56)
[2019-01-16] MEDS: Glucerna Shake 120 ML LIQUID PO ×2 (08:39→11:46)
[2019-01-16] MEDS: Acetaminophen 500 MG Tablet 1000 MG PO ×3 (08:40→19:54)
[2019-01-16] MEDS: metFORMIN HCl 500 MG Tablet PO ×2 (08:40→17:34)
[2019-01-16] MEDS: APIXABAN 5 MG TABLET PO ×2 (08:40→17:33)
[2019-01-16] MEDS: Senna/Docusate Sodium 1 Tablet PO ×2 (08:40→17:35)
[2019-01-16] MEDS: FLUoxetine 20 MG Capsule PO (08:40)
[2019-01-16] MEDS: Nystatin Powder 15gm Bottle 1 APPLIC TOPICAL ×2 (08:41→19:57)
--- NOTE | 2019-01-16 15:02 | MDS.RN ---
Information for the mds was obtained from review of the clinical record, interview of resident, staff, and direct observation of resident's care.
[2019-01-16 16:00] VITALS: BP 113/62; PULSE 71; RESP 18; TEMP 36.9; O2SAT 98
[2019-01-16] MEDS: Tamsulosin HCl 0.4 MG Capsule PO (17:34)
[2019-01-16] MEDS: Atorvastatin Calcium 80 MG Tablet PO (19:55)
[2019-01-17 06:41] LABS: Bedside Glucose 94 mg/dL (70-110)
[2019-01-17] MEDS: Glucerna Shake 120 ML LIQUID PO ×2 (09:31→11:56)
[2019-01-17] MEDS: FLUoxetine 10 MG Capsule PO (09:31)
[2019-01-17] MEDS: buPROPion 75 MG Tablet PO (09:31)
[2019-01-17] MEDS: APIXABAN 5 MG TABLET PO (09:32)
[2019-01-17] MEDS: Senna/Docusate Sodium 1 Tablet PO (09:32)
[2019-01-17] MEDS: metFORMIN HCl 500 MG Tablet PO (09:32)
[2019-01-17] MEDS: Acetaminophen 500 MG Tablet 1000 MG PO ×2 (09:32→19:58)
[2019-01-17] MEDS: Nystatin Powder 15gm Bottle 1 APPLIC TOPICAL ×2 (09:37→20:00)
[2019-01-17] MEDS: Menthol/Lanolin/Calamine/Znox 113 GM Tube 1 APPLIC TOPICAL ×2 (09:37→20:00)
[2019-01-17 12:25] VITALS: O2SAT 95
--- NOTE | 2019-01-17 14:46 | CASEMGMT ---
Social Work Spoke with patient's about discharge plans as insurance update is 01/19 and they are requesting DC plans. stated she and pt know pt needs LTP. had a few facilities for SW to refer to. Discussed financial liability. stated they have enough to pay for about 14 days, but then would need Medicaid. will be in to visit pt 01/19 and to notify SW upon arrival for SW to assist with Medicaid application. agreeable. Referrals made to [facility] and [facility]. Will continue to follow. AUSTIN CannonW
[2019-01-17 15:31] VITALS: BP 117/78; PULSE 70; RESP 16; TEMP 37.2; O2SAT 94
--- NOTE | 2019-01-18 03:20 | NURSING ---
Patient has been refusing medications and care. Patient states I give up, I am done. They are kicking me out and I have to leave Wednesday. Patient has not complained of pain all night. Patient states When they hurt my back I could not do therapy because I hurt so bad, and now they are kicking me out. This nurse encouraged patient to participate with therapy today since patient has not had any pain. Patient states what is the use because they are kicking me out. Continued to encourage patient but patient continues to say that he is giving up. Will update day shift.
[2019-01-18] MEDS: APIXABAN 5 MG TABLET PO (06:18)
[2019-01-18] MEDS: Acetaminophen 500 MG Tablet 1000 MG PO ×2 (06:18→21:34)
[2019-01-18] MEDS: buPROPion 75 MG Tablet PO (06:18)
[2019-01-18] MEDS: metFORMIN HCl 500 MG Tablet PO (06:19)
[2019-01-18] MEDS: FLUoxetine 10 MG Capsule PO (06:19)
[2019-01-18] MEDS: Menthol/Lanolin/Calamine/Znox 113 GM Tube 1 APPLIC TOPICAL ×2 (06:22→21:35)
[2019-01-18] MEDS: Nystatin Powder 15gm Bottle 1 APPLIC TOPICAL ×2 (06:23→21:33)
[2019-01-18 06:31] LABS: Bedside Glucose 109 mg/dL (70-110)
--- NOTE | 2019-01-18 11:07 | NURSING ---
R' REFUSING NOON MEDS. ALSO, REFUSING ASHISH WRAPS AND GETTING OUT OF BED. R' INCONTINENT. INCONTINENCE CARE PROVIDED. R' STATES HE DOESN'T WANT TO TY ANYMORE AND I'M TIRED OF SUFFERING. I WISH THE [facility] WOULD JUST TAKE ME. 1:1 PROVIDED OFFERED TO BRING R' OUT TO LOUNGE, OPEN BLINDS, TURN ON MUSIC, ETC. BUT REFUSED. WILL CONT' TO MONITOR AND ENCOURAGE.
--- NOTE | 2019-01-18 11:19 | PCA ---
A nurse and I approached the patient to get washed up ad dressed for the day but the patient refused any kind of care. Also continued to to us that he will not be doing any kind of therapy.
--- NOTE | 2019-01-18 12:21 | CASEMGMT ---
Addendum entered by Mary Ann Moseley 01/18/19 14:20: [facility] is able to meet with 01/19 at 1 pm. [facility] does not have availability. Awaiting [facility] outcome. Will continue to follow. Original Note: Social Work Patient refusing therapy, medications and meals. Notified by nursing last night pt was stating he was done. Spoke with patient and although there is no discharge date set, pt no longer wants therapy and is electing hospice. Patient's first choice would be IPU at [facility], but is agreeable to one of the facilities chose yesterday. Contacted and discussed patient's wishes. understands and is agreeable to visit pt and meet with hospice. Hospice phone referral made, but did not request clinicals to fax. Hospice contacting to schedule a meeting. [facility] Both are reviewing and can assist with Medicaid once patient admits. Will await acceptance if which facility has availability for quick discharge. Will continue to follow. AUSTIN CannonW
--- NOTE | 2019-01-18 14:37 | NURSING ---
NOAH HANDS EDEMATOUS. R' ABLE TO REMOVE RING FROM RIGHT HAND RING FINGER AND PLACED IT ON PINKY FINGER. EASILY COMES OFF NOW. PROPPED UE'S ON PILLOWS. R' STILL REFUSING MANY THINGS TODAY. REFUSED THERAPY, BREAKFAST/LUNCH. R' ENCOURAGED TO GET OOB AGAIN BUT STILL REFUSING. 1:1 PROVIDED. DENIES NEEDS AT THIS TIME. RESTING IN BED WITH HOB SLIGHTLY ELEVATED. WILL CONT' TO MONITOR.
[2019-01-18 16:00] VITALS: BP 111/66; PULSE 68; RESP 19; TEMP 36.4; O2SAT 96
--- NOTE | 2019-01-18 17:37 | NURSING ---
NOTIFIED DR. PEREZ THAT R' REFUSING CARE TODAY INCLUDING MEDS AND THERAPY. AWARE THAT TO MEET WITH HOSPICE TOMORROW. R' RESTING IN BED. DENIES PAIN OR NEEDS AT THIS TIME.
[2019-01-18] MEDS: Atorvastatin Calcium 80 MG Tablet PO (21:35)
[2019-01-18 22:40] VITALS: PULSE 70; RESP 18; O2SAT 96
[2019-01-19 06:26] LABS: Bedside Glucose 112 mg/dL (70-110)
[2019-01-19] MEDS: buPROPion 75 MG Tablet PO (06:50)
[2019-01-19] MEDS: Menthol/Lanolin/Calamine/Znox 113 GM Tube 1 APPLIC TOPICAL ×2 (08:01→19:41)
[2019-01-19] MEDS: Glucerna Shake 120 ML LIQUID PO ×2 (08:04→12:05)
[2019-01-19 11:28] VITALS: O2SAT 94
[2019-01-19 14:52] VITALS: BP 113/68; PULSE 70; RESP 18; TEMP 36.9; O2SAT 94
--- NOTE | 2019-01-19 15:39 | NURSING ---
Addendum entered by Tarah Cortes 01/19/19 18:12: order faxed to [facility] for defibrillator deactivation. Addendum entered by Tarah Cortes 01/19/19 15:55: Pt does qualify for hospice. Type of Device & carriage operator faxed to [facility] in Cardiology. Original Note: pt requesting to have defibrillator shut off. Called [facility] @ [facility] and she can turn off with order from Hospice. Pt has not qualified for Hospice yet. If pt does call [facility] to have turned off before discharge. If he does not qualify for hospice then pt will need to have done after discharge.
--- NOTE | 2019-01-19 15:45 | CASEMGMT ---
Insurance Continued stay denied with LCD 01/21/19. Pt and informed and NOMNOC signed and faxed to insurance. Auth # [id number] [place] [place]
--- NOTE | 2019-01-19 15:54 | CASEMGMT ---
Social Work Pt and family met with [facility]. Per white shoe ragger, pt does not qualify for IPU but does qualify for hospice and family does want to sign up for services. MARIA VICTORIA spoke with pt, and family about shelter placement and pt financial liability. After discussing finances with pt , pt may qualify for Medicaid. Phone call to [facility] and spoke with Francisca about this. Francisca states that pt needs to meet with [facility] to review finances and fill out medicaid application. If this meeting goes ok, [facility] will admit pt tomorrow afternoon. Pt and informed of this and is agreeable and will meet with Azucena in the morning. MARIA VICTORIA spoke with hospice nurse and she is aware of the above and hospice will meet pt at [facility] tomorrow if he is admitted. MARIA VICTORIA will await call from [facility] in the morning with pt admission status. PLan: D/C to [facility], possibly tomorrow if accepted. [facility] to start services upon d/c [facility]
[2019-01-19] MEDS: Nystatin Powder 15gm Bottle 1 APPLIC TOPICAL (19:40)
--- NOTE | 2019-01-19 19:43 | NURSING ---
Pt refusing all hs medication at this time but is allowing hygiene care for the night. No concerns voiced during this time.
--- NOTE | 2019-01-19 19:50 | PCM.DC ---
- Discharge Diagnoses Current Active Problems: Current Active and Chronic Problems (Last Updated 09/23/17 @ 10:02 by Rica Morfin) Debility (Acute) Diverticulitis of sigmoid colon (Acute) Coronary artery stenosis (Chronic) Chronic systolic heart failure (Chronic) Pulmonary hypertension (Chronic) You will use the following diet at home:: No restrictions, Regular Your food should be the consistency of: Regular Your liquids should be the consistency of: Regular/Thin Discharge Activity: Return to Normal Activity Weight Bearing Status: Weight bearing as tolerated Call your doctor if you observe: Fever of 101 or Higher, Inability to urinate, Inability to have a bowel movement, Shortness of breath, Chest pain, Uncontrolled pain Allergies/Adverse Reactions: Allergies morphine Adverse Reaction (Intermediate, Verified 09/23/17 09:56) Nausea and vomiting Primary Care Physician: Tavares Yao MD [Primary Care Provider] - Please follow up with your Primary Care Physician in: As needed. Test Results: Test results from this visit will be discussed in further detail at your follow-up appointment, if applicable. Please Follow Up With: PCP Dr. Yao When: after D/C from TCU Proposed Discharge Date: 01/20/19
--- NOTE | 2019-01-19 19:52 | DS.PCM_ITS ---
Discharge Date and Diagnosis - Problem List Patient Problems: Active and Suspected Problems (Last Updated 09/23/17 @ 10:02 by Rica Morfin) Debility (Acute) Diverticulitis of sigmoid colon (Acute) Date of Admission: 01/05/19 Date of Discharge: 01/20/19 - Primary Discharge Diagnosis Active and Suspected Problems (Last Updated 09/23/17 @ 10:02 by Rica Morfin) Debility (Acute) Diverticulitis of sigmoid colon (Acute) - Secondary Discharge Diagnosis Chronic Problems (Last Updated 09/23/17 @ 10:02 by Rica Morfin) Coronary artery disease (Chronic) Stroke (Chronic) Atrial fibrillation (Chronic) Diabetes mellitus (Chronic) Right hemiplegia (Chronic) Coronary artery stenosis (Chronic) Chronic systolic heart failure (Chronic) Pulmonary hypertension (Chronic) 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 Jeremy Maloney and Dr. Narciso Pickens, [facility] Type 2 diabetes mellitus without complications (Chronic) Chronic atrial flutter (Chronic) Ischemic cardiomyopathy (Chronic) EF 23% per echo 08/03/17 done @ [facility] Non-rheumatic aortic stenosis (Chronic) Paroxysmal atrial fibrillation (Chronic) Secondary pulmonary arterial hypertension (Chronic) Atherosclerosis of coronary artery of [place] heart without angina pectoris (Chronic) BPH (benign prostatic hyperplasia) (Chronic) Dyspnea on exertion (Chronic) Nonrheumatic mitral valve insufficiency (Chronic) 2+ regurgitation per echo 08/03/17 done @ [facility] Dysphagia (Chronic) Carotid artery stenosis (Chronic) Right hemiparesis (Chronic) Depression (Chronic) Hyperlipidemia (Chronic) Urinary retention due to benign prostatic hyperplasia (Chronic) Bladder cancer (Chronic) Hospital Course and Treatment Imaging Results: 01/11/19 13:59 Diet: Regular Diet Food consistency:: Mechanical Soft/Ground Liquid Consistency:: Regular/Thin Is pt able to select menu?: Yes Diet Comments: ensure pudding w/meals Clinical Impression(s) from Imaging Studies Lumbar Spine X-Ray 01/13/19 08:20 IMPRESSION: Degenerative changes of the spine, as detailed above. Loss of the normal lumbar lordosis. Electronically Signed: Delta Escobar, at 10:00 EST , Service support , Labs (Last 48 Hours) 01/18/19 01/19/19 06:02 06:04 POC Glucose 109 112 H Operations: None Procedures: None Summary of Care Provided: The patient is a 83 year old Male with below past medical history hospitalized for acute diverticulitis of sigmoid colon, complicated by severe depression, admitted to TCU with debility, here for rehabilitation, strengthening, prior to discharge home with . Resident refusing all medications, refusing therapy. He told me he no longer wants to live. Discharge to [facility], [facility]. Patient Problems: Active and Suspected Problems (Last Updated 09/23/17 @ 10:02 by Rica Morfin) Debility (Acute) Diverticulitis of sigmoid colon (Acute) - Physical Exam Vitals/I&O's: Vital Signs Temp Pulse Resp BP Pulse Ox 98.4 F 70 18 113/68 94 01/19/19 14:52 01/19/19 14:52 01/19/19 14:52 01/19/19 14:52 01/19/19 14:52 Oxygen Delivery Method Room Air Weight: 88.167 kg Body Mass Index (BMI) 28.6 Intake and Output for Last 24 Hours 01/17/19 01/18/19 01/19/19 23:59 23:59 23:59 Intake Total 600 / 600 720 / 720 480 / 480 Output Total 0 / 0 400 / 400 Balance 600 / 600 320 / 320 480 / 480 Laboratory Results 01/19/19 06:04: POC Glucose 112 H Current Medications Acetaminophen (Tylenol) 1,000 mg PO 0800,1200,1600,1999 [facility] Last Admin: 01/19/19 19:42 Dose: Not Given Documented by: Apixaban (Eliquis) 5 mg PO BID@0800,1800 [facility] Last Admin: 01/19/19 17:47 Dose: Not Given Documented by: Atorvastatin Calcium (Lipitor) 80 mg PO 1999 [facility] Last Admin: 01/19/19 19:42 Dose: Not Given Documented by: Bisacodyl (Dulcolax) 10 mg PO DAILY PRN PRN Reason: Constipation Bupropion HCl (Wellbutrin Tablets) 75 mg PO DAILY [facility] Stop: 01/20/19 08:01 Last Admin: 01/19/19 06:50 Dose: 75 mg Documented by: Calamine/Phenol (Calmoseptine Ointment) 1 applic TOPICAL [facility]; Protocol Last Admin: 01/19/19 19:41 Dose: 1 applicatio Documented by: Dextrose (D50w Syringe) 0 gm IV X1 PRN; Protocol PRN Reason: Hypoglycemia Fluoxetine HCl (Prozac) 10 mg PO DAILY@0800 [facility] Last Admin: 01/19/19 08:34 Dose: Not Given Documented by: Glucagon () 1 mg IM .X1 PRN PRN Reason: Hypoglycemia [facility] Last Admin: 01/19/19 17:47 Dose: Not Given Documented by: Multi-Ingredient Cream (Eucerin) 1 applic TOPICAL [facility]; Protocol Last Admin: 01/19/19 19:40 Dose: 1 applicatio Documented by: Nutritional Formula (Lactose Free) (Glucerna Shake) 120 ml PO TIDCM [facility] Last Admin: 01/19/19 17:47 Dose: Not Given Documented by: Nystatin (Mycostatin Powder) 1 applic TOPICAL 799,1999 [facility]; Protocol Last Admin: 01/19/19 19:40 Dose: 1 applicatio Documented by: Ondansetron HCl (Zofran Odt) 8 mg PO Q8H PRN PRN PRN Reason: NAUSEA Last Admin: 01/11/19 09:16 Dose: 8 mg Documented by: Oxycodone HCl (Oxyir) 5 mg PO Q4H PRN PRN PRN Reason: Pain Score 6-10/10 Last Admin: 01/15/19 08:08 Dose: 5 mg Documented by: Polyethylene Glycol (Miralax) 17 gm PO DAILY@0800 [facility] Last Admin: 01/19/19 08:34 Dose: Not Given Documented by: Senna/Docusate Sodium (Senokot-S, [place]-Colace) 1 tablet PO BID@0800,1800 [facility] Last Admin: 01/19/19 17:47 Dose: Not Given Documented by: Tamsulosin HCl (Flomax) 0.4 mg PO DAILY@1730 [facility] Last Admin: 01/19/19 17:47 Dose: Not Given Documented by: Discharge Diet: No Restrictions Discharge Activity: Return to Normal Activity Weight Bearing Status: Weight bearing as tolerated Call your doctor if you observe: Fever of 101 or Higher, Inability to urinate, Inability to have a bowel movement, Shortness of breath, Chest pain, Uncontrolled pain Primary Care Physician: Tavares Yao MD [Primary Care Provider] - Please follow up with your Primary Care Physician in: As needed. Please Follow Up With: PCP Dr. Yao When: after D/C from TCU Disposition: Asstd Living/Non-Skill NH Minutes spent on discharge:: 30 Patient Condition:: Poor Medical Necessity - Tobacco Use Smoking Status: Former smoker Tobacco Use: Cigarettes Meaningful Use Info Meaningful Use Diagnoses (Choose all that apply): None applicable
--- NOTE | 2019-01-19 19:54 | TREXTCAR_ITS ---
- Diet 01/11/19 13:59 Diet: Regular Diet Food consistency:: Mechanical Soft/Ground Liquid Consistency:: Regular/Thin Is pt able to select menu?: Yes Diet Comments: ensure pudding w/meals - Routine Orders/Code Status Suppository Type: Dulcolax 10mg Suppository Frequency: Daily PRN Code Status: DNRCC - Therapies Weight Bearing: Weight bearing as tolerated Extremity Affected:: Bilateral Lower - Problem/Diagnosis (1) Debility Status: Acute Current Visit: Yes (2) Diverticulitis of sigmoid colon Status: Acute Current Visit: Yes (3) Coronary artery stenosis Status: Chronic Current Visit: Yes (4) Chronic systolic heart failure Status: Chronic Current Visit: Yes (5) Pulmonary hypertension Status: Chronic Current Visit: Yes (6) Coronary artery disease Status: Chronic Current Visit: No (7) Stroke Status: Chronic Current Visit: No (8) Atrial fibrillation Status: Chronic Current Visit: No (9) Diabetes mellitus Status: Chronic Current Visit: No (10) Right hemiplegia Status: Chronic Current Visit: No (11) BPH (benign prostatic hyperplasia) Status: Chronic Current Visit: No (12) Hyperlipidemia Status: Chronic Current Visit: No (13) Bladder cancer Status: Chronic Current Visit: No - Allergies/Procedures Done in Hospital Allergies/Adverse Reactions: Allergies morphine Adverse Reaction (Intermediate, Verified 09/23/17 09:56) Nausea and vomiting - Type of Care/Length of Stay Estimated LOS: More Than 30 Days Type of Care Needed: Retirement/Assisted Living Rehab Potential: None Prognosis: Poor - Additional Orders/Day of Discharge Day of Discharge: 01/20/19 - Dietary and Speech Recommendations Dietitian Recommendations/Changes: Rec continue ONS medpass for increased nutrition if consumed. Will offer ensure pudding or magic cup w/ meals for increased nutrition if consumed - Follow Up Care Primary Care Physician: Tavares Yao MD [Primary Care Provider] - Please follow up with your Primary Care Physician in: As needed. Please Follow Up With: PCP Dr. Yao When: after D/C from TCU
[2019-01-20 06:36] LABS: Bedside Glucose 105 mg/dL (70-110)
[2019-01-20] MEDS: Menthol/Lanolin/Calamine/Znox 113 GM Tube 1 APPLIC TOPICAL (08:24)
[2019-01-20] MEDS: Nystatin Powder 15gm Bottle 1 APPLIC TOPICAL (08:25)
--- NOTE | 2019-01-20 11:26 | NURSING ---
Resident resting in bed. Room dark. When this nurse enters room resident shuts his eyes. Will continue to monitor him.
--- NOTE | 2019-01-20 12:13 | NURSING ---
refusing offer of lunch. Does request chocolate milk and drinks at this time. Refuses offer of Tylenol.
--- NOTE | 2019-01-20 12:42 | CASEMGMT ---
Addendum entered by Mary Ann Moseley 01/20/19 15:08: Met with pt, and family in room with [facility]. Pt does not qualify for IPU. and pt would like [facility]; however, [facility] does not have contract with the facility. [facility] coordinating with [facility] the possibility of getting a one-time contract. Regardless, pt will DC on this date. Cot transport scheduled with [facility] for 5:30 pm. Updated [facility]. [facility] completed and faxed with DC orders to [facility]. Plan: DC to [facility] 01/20 with hospice. Original Note: Social Work Spoke with about DC plans - refuses to apply for Medicaid and states she can write a check for the 14 days to admit to [facility]. Left messages with Francisca to inquire about conversation and final plans. There is been back and forth between [facility] and [facility] with uncertainty if pt can be admitted/admitted today. Spoke with and pt is still requesting IPU - explained [facility] IPU if wants a referral made to them. agreed. Referral placed. [facility] returned phone call and stated if can pay for the 14 days up front, they have a room available for him to accept today. Spoke with SW at [facility] to ensure pt will be able to admit on services, and they can whenever pt sign on services when pt admits at [facility]. [facility] will meet with at 1 pm to discuss IPU elgibility. Will continue to follow. AUSTIN Cannon
[2019-01-20 15:45] VITALS: BP 100/50; PULSE 70; RESP 18; TEMP 36.9; O2SAT 96
--- NOTE | 2019-01-20 16:28 | NURSING ---
report called to taina at [facility]
--- NOTE | 2019-01-20 18:16 | NURSING ---
[facility] here to [facility] resident for transfer.
== END 2019-01-20 17:45 | disposition hospice, inpatient (51) | DRG 392 ==
PROVIDERS: Admitting Provider Family Medicine Geriatric Medicine; Family Provider Family Medicine; PCP Family Medicine; Referring Provider Family Medicine Geriatric Medicine; Visit Provider Family Medicine Geriatric Medicine
DX: K57.32 Diverticulitis of large intestine without perforation or abscess without bleeding (principal); I50.22 Chronic systolic (congestive) heart failure; I48.20 Chronic atrial fibrillation, unspecified; G81.91 Hemiplegia, unspecified affecting right dominant side; E78.5 Hyperlipidemia, unspecified; I25.10 Atherosclerotic heart disease of native coronary artery without angina pectoris; I27.21 Secondary pulmonary arterial hypertension; E11.9 Type 2 diabetes mellitus without complications; N40.1 Benign prostatic hyperplasia with lower urinary tract symptoms; B35.4 Tinea corporis; F32.9 Major depressive disorder, single episode, unspecified; R33.8 Other retention of urine; Z95.3 Presence of xenogenic heart valve; Z95.810 Presence of automatic (implantable) cardiac defibrillator; Z87.891 Personal history of nicotine dependence; B35.1 Tinea unguium; M79.674 Pain in right toe(s); M79.675 Pain in left toe(s)
CPT/HCPCS: 36415; 72100; 80048; 82962; 85025; 97110; 97162; 97166; 97530; 97535; 97802